=== PATIENT | male | born 1935 | race Caucasian/White ===

== ENCOUNTER 2016-06-28 15:41 | Inpatient (IN) | payer MEDICARE, OTHER ==
[~2016-06-28] VITALS: Ht 175.3 cm; Wt 108.1 kg
[~2016-06-28 15:41] MED LIST: ACET-171 PO; ATOR20TA PO; CLOP75TA28 PO; FELO10TA3 PO; FUR20 PO; HYDR-3940 PO; HYDR-4003 PO; LOSA1TAB70 PO; LOV80 SUBQ; NITR0.4T SL; PANT40TA2 PO; WARF5TAB7 PO
[2016-06-28 15:55] VITALS: BP 189/66; PULSE 56; RESP 22; O2SAT 98
[2016-06-28 16:51] LABS: BASOPHILS % (AUTO) 0.1 % (0-3); EOSINOPHILS % (AUTO) 1.8 % (0-5); MONOCYTES % (AUTO) 11.4 % (4-12); Mean Corpuscular Hemoglobin 28.3 pg (27.0-35.0); Mean Corpuscular Volume 90.6 fL (81-100); NEUTROPHILS % (AUTO) 75.8 % (40-74); Platelet Count 254 bil/L (150-400)
[2016-06-28 17:05] LABS: INR 2.72 ratio
[2016-06-28 17:13] LABS: TROPONIN T 0.028 ug/L (0.0-0.011)
[2016-06-28 17:24] LABS: Magnesium 1.9 mg/dL (1.6-2.6)
--- NOTE | 2016-06-28 17:35 | DRSVH ---
PROCEDURE: X-RAY CHEST ONE VIEW, PORTABLE ([id number]) INDICATIONS: weakness TECHNIQUE: One view of the chest was acquired. COMPARISON: [facility], CR, XR CHEST 1VW (PORTABLE), 01/07/2016, 13:40. FINDINGS: Surgical changes and devices: None. Lungs and pleura: No pleural effusions or pneumothorax. Lungs are clear. Mediastinum: Mediastinal contours appear normal. Heart size is normal. Bones and chest wall: No suspicious bony lesions. Overlying soft tissues appear unremarkable. IMPRESSION: No acute process. Dictated by: Eliana Harris M.D. on 06/28/2016 at 17:08 Approved by: Eliana Harris M.D. on 06/28/2016 at 17:09
--- NOTE | 2016-06-28 18:57 | ED.REPORT ---
HPI-General Illness Date of Service Jun 28, 2016 ED Provider: Fredy Mc MD Morgan Martel is a 81 year old man with a PMH of CAD with stents to the RCA and LAD, Factor 5 Leiden, 2 PEs in 2011 and 2012 on Warfarin, TAVR in Dec, and LBBB who presents with a 3 month history of Cold intolerance and fatigue. He states that his entire life he has been "Warm Blooded" and generally able to dress more lightly than those around him, now however over the course of the day he gets increasingly chilled and has to wear several layers even inside a heated home. He denies fevers or shaking chills. He does have a problem with chronic LE edema which has been worsening lately, and he has been feeling more SOB than usual for the past couple weeks. He is further concerned about a change in color to his L LE which has been gradually coming on over the past couple months. He is being followed by Dr. Mcallister from cardiology and his PCP Dr. Mott. In short this is a gentleman with multiple chronic complaints that seem to have come to a head such that he currently feels miserable and is seeking further evaluation. Nursing Notes Stated Complaint: BODY CHILLS, NAUSEA Chief Complaint: General Complaint Nursing Notes Reviewed: Yes Allergies: Coded Allergies: No Known Allergies (Unverified , 06/28/16) Scheduled Atorvastatin (Lipitor) 10 Mg Tab 10 MG PO HS Clopidogrel (Clopidogrel) 75 Mg Tablet 75 MG PO DAILY Hydralazine (Hydralazine) 100 Mg Tablet 100 MG PO TID Hydrochlorothiazide (Hydrochlorothiazide) 25 Mg Tablet 25 MG PO DAILY Losartan Potassium (Losartan Potassium) 100 Mg Tablet 100 MG PO HS Metoprolol Succinate ER (Metoprolol Succinate ER) 25 Mg Tab.er.24h 25 MG PO QAM Pantoprazole DR (Pantoprazole DR) 40 Mg Tablet.dr 40 MG PO QAM Warfarin Sodium (Warfarin Sodium) 5 Mg Tablet 7.5 MG PO DAILY except Warfarin Sodium (Warfarin Sodium) 5 Mg Tablet 5 MG PO Q FRIDAY Scheduled PRN Acetaminophen (Acetaminophen) 500 Mg Tablet 1,000 MG PO Q6H PRN PRN For Pain Budesonide/Formoterol 160-4.5 mcg Inh (Symbicort 160-4.5 mcg Inh) 120 Puff Inhaler 1 PUFF INHALATION BID PRN PRN For Shortness of Breath Nitroglycerin SL (Nitrostat) 0.4 Mg Tab.subl 0.4 MG SL PRN PRN PRN For Chest Pain 1 tab under your tongue for chest pain. May repeat up to 3 tabs if pain continues. Call 911 if pain does not resolve. General Time Seen by MD: 18:15 Chief Complaint Other (Cold intolerance) Hx Obtained From: Patient Sudden in Onset?: No Onset Occurred: More than a week ago... (3 months) Symptom Duration: Waxes and wanes Recent Healthcare: Recent doctor visit Similar Sx Previous: Yes Past Medical History Past Medical History Notes: Document Image Technician Dr. Mcallister D/Jax'richi Friday01/05/16 from [facility] following TAVR 01/02 ( cardiology attending and surgeon Dr. Orellana, Dr. 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 Chan Status post valve replacement (TAVR) at [place] (bioprosthetic) complicated by pseudoaneurysm repair 01/03/2016 Smoking History Former Smoker Ambulatory Status Independent Review of Systems Full Review of Systems Constitutional: Reports: Chills, Fatigue Respiratory: Reports: Shortness of breath Cardiovascular: Reports: Edema Skin: Reports Rash, Reports Swelling Complete sys rev & neg: except as marked. Physical Exam Gen: A/O x3 pleasant cooperative elderly male bundled in numerous blankets despite skin that is very warm to the touch Neck: Supple, non tender, no thyromegaly HEENT: PERRL, EOMI, no scleral icterus, moderate conjunctival pallor CV: RRR, audible holosystolic murmur best heard a right sternal border consistent with TAVR, no rubs or gallops Resp: Lungs CTA BL, no wheezing rales or rhonchi Abdomen: soft non tender, no organomegaly Extr: Moderate BL LE pitting edema, dusky red color change to L LE with associated palpable warms and no purulent discharge Neuro: CN 2-12 grossly intact, no focal neurologic deficit. Vital Signs Vital Signs Date Time Temp Pulse Resp B/P Pulse Ox O2 Delivery O2 Flow Rate FiO2 06/28/16 20:15 63 16 184/58 96 Room Air 06/28/16 15:55 37.1 56 22 189/66 98 Room Air Initial VS: Reviewed, Vital signs abnormal (Hypertensive) Interpretation & Diagnostics Lab Results Interpretation Result Diagram: 06/28/16 2149 06/28/16 1625 Test 06/28/16 16:09 06/28/16 16:25 06/28/16 18:36 Lactic Acid Level 1.1mmol/L (0.4-2.0) Procalcitonin 0.04ng/mL (0.00-0.08) Prothrombin Time 29.7sec (8.1-12.5) Prothromb Time International Ratio 2.72ratio Sodium Level 140mEq/L (134-144) Potassium Level 4.1mEq/L (3.5-5.2) Chloride Level 102mEq/L (97-108) Carbon Dioxide Level 21mmol/L (18-29) Blood Urea Nitrogen 30mg/dL (8-27) Creatinine 1.29mg/dL (0.76-1.27) Estimat Glomerular Filtration Rate 57mL/min (>59) Glucose Level 155mg/dL (60-99) Calcium Level 9.4mg/dL (8.5-10.1) Magnesium Level 1.9mg/dL (1.6-2.6) Total Bilirubin 0.5mg/dL (0.0-1.2) Aspartate Amino Transf (AST/SGOT) 19U/L (0-50) Alanine Aminotransferase (ALT/SGPT) 16U/L (0-44) Alkaline Phosphatase 66U/L (25-160) Pro-B-Type Natriuretic Peptide 640.1pg/mL (0-486) Total Protein 7.4g/dL (6.4-8.4) Albumin 3.9g/dL (3.4-5.0) Hold Kaur Top Tube Received (Received) Troponin T 0.029ug/L (0.0-0.011) Thyroid Stimulating Hormone (TSH) 1.580uIU/mL (0.450-4.500) Lab Results Interpretation: Mildy anemic with H/H close to baseline, BNP mildly elevated with negative result in May per outpatient notes, Cr mildly elevated above baseline, BUN/Cr ration >20:1, TSH normal, Trop elevated but below previously established values and unchanged on repeat measure X-Ray Chest Interpretation Interpretation / Wet Read by: Interpret - Radiologist NL X-Ray Chest Findings: No infiltrate, Normal lung markings, Normal heart size, Normal mediastinum, Normal great vessels, No fracture, Soft tissues normal , No acute disease, No sail sign, NL cardiothymic shadow Re-Eval/Medical Decision Med Decision/Clinical Course Mr. Mora is a gentleman with multiple chronic medical issues and a somewhat uncertain baseline status in terms of expected Troponin values. Given that he feels acutely worse today and is a diabetic with an ECG that cannot be interpreted due to LBBB we believe it would be prudent to admit this gentleman for further observation and trending of his Troponin. In addition he appears to be developing early L LE cellulitis and would benefit from antibiotics during his cardiac observation period. Patient did not appear acutely toxic, per discussion with admitting internal med team we deferred antibiotic selection to Internal Medicine. Counseled Regarding: Diagnosis, Lab results, Need for admission Discharge & Departure Shift Change Sign-Out Patient Care Transferred: Yes Discussed Complaint(s): Yes Laboratory Evaluation: Lab evaluation discussed Imaging Studies: Imaging discussed Response to Therapy: Improved Primary Impression: Chest pain in adult Additional Impression: Cellulitis and abscess of leg, except foot Disposition: ADMITTED TO HOSPITAL Discharge Condition All VS Reviewed: Yes Condition: Stable Referrals: Edison Mott MD (PCP) Attending Statement Seen with Dr Mota on 06/27. Agree with above. copies to: Edison Mott MD, David E DO Jun 28, 2016 18:57 Fredy Mc MD Jun 29, 2016 01:53 Primary Impression: Chest pain in adult Additional Impression: Cellulitis and abscess of leg, except foot Disposition: ADMITTED TO HOSPITAL Discharge Condition All VS Reviewed: Yes Condition: Stable Referrals: Edison Mott MD (PCP) copies to: Edison Mott MD, David E DO Jun 28, 2016 18:57
[2016-06-28 19:15] LABS: TROPONIN T 0.029 ug/L (0.0-0.011)
[2016-06-28] MEDS ORDERED: Trimethoprim-Sulfa 160 mg-800 mg Tablet PO ONE (20:05)
[2016-06-28 20:15] VITALS: BP 184/58; PULSE 63; RESP 16; O2SAT 96
[2016-06-28] MEDS ORDERED: Ondansetron 2 mg/mL 2 mL Inj IVPUSH PRN (20:35)
[2016-06-28] MEDS ORDERED: HYDROcodone-APAP 5-325 mg Tablet PO PRN (20:35)
[2016-06-28] MEDS ORDERED: Polyethylene Glycol (PEG) 17 Gm Powder PO PRN (20:35)
[2016-06-28] MEDS ORDERED: Alum-Mag Hydrox-Simeth 30 mL Suspension PO PRN (20:35)
[2016-06-28] MEDS ORDERED: WARF5TAB7 PO (21:11)
[2016-06-28] MEDS ORDERED: ATRV10T PO (21:11)
[2016-06-28] MEDS ORDERED: METO25TA99 PO (21:11)
[2016-06-28] MEDS ORDERED: HYDR100T27 PO (21:11)
[2016-06-28] MEDS ORDERED: LOSA100T29 PO (21:11)
[2016-06-28] MEDS ORDERED: SYMINH INHALATION (21:12)
[2016-06-28] MEDS: Vancomycin Dose per Pharmacist XX SCH (21:20)
--- NOTE | 2016-06-28 21:33 | PCM.HPMED ---
Subjective Date of Service Jun 28, 2016 Primary Provider: Admitting Physician: Ambrosio Lane MD Primary Care Physician: Edison Mott MD Attending Physician: Ambrosio Lane MD Admit Status: From the Emergency Department Chief Complaint: Chills Nausea History of Present Illness: Patient is a 81 y.o. M with a past medical history of CAD with stents to the RCA and LAD antiplatelet therapy with Clopidogrel, Factor V Leiden, 2 PEs and DVT in 2011 and 2012 anticoagulated on Warfarin, TAVR in Dec, and LBBB, chronic lower leg edema on lasix. He presented tot ED with complaint of nausea and chills. Patient stated he has had a 3 month history of Cold intolerance and fatigue. He stated that this began a couple of months ago, and he previously as had no problems with feeling cold. Patient stated that he has had to wear increasingly more layers of clothing and turn up the heat in his home. Associated with worsening nausea, increase in blood pressure, worsening shortness of breath over the past two weeks. Additionally patient and his daughter voiced concerning over the changing of color of hi left lower leg that has beem, gradually becoming red and appears to have been advancing over the past months.Patient denies dysuria, constipation, diarrhea, blood in stool, vomiting, coughing up blood, back pain, chest pain, chest pressure, abdominal pain, syncope, vertigo, change in vision, headache. Review of Systems: A comprehensive review of systems was conducted with the patient and found to be negative except as above in the History of Present Illness. Allergies Coded Allergies: No Known Allergies (Unverified , 06/28/16) Home Medications Atorvastatin (Lipitor) 20 Mg Tablet 10 MG PO DAILY Clopidogrel (Clopidogrel) 75 Mg Tablet 75 MG PO DAILY Enoxaparin (Lovenox) 80 Mg/0.8 Ml Syringe 80 MG SUBQ Q12 starting 01/05/16 x 3 days Felodipine ER (Felodipine ER) 10 Mg Tab.er.24h 10 MG PO DAILY Furosemide (Furosemide) 20 Mg Tab 20 MG PO BID Hydralazine (Hydralazine) 50 Mg Tablet 50 MG PO TID Losartan/HCTZ 100-25 mg (Losartan/HCTZ 100-25 mg) 1 Each Tablet 1 TABLET PO DAILY Pantoprazole DR (Protonix) 40 Mg Tablet 40 MG PO DAILY Warfarin Sodium (Warfarin Sodium) 5 Mg Tablet 7.5 MG PO DAILY Acetaminophen (Acetaminophen) 500 Mg Tablet 1,000 MG PO Q6H PRN PRN For Pain Hydrocodone-Acetaminophen 5-325 mg (Hydrocodone-Acetaminophen 5-325 mg) 1 Each Tablet 1 TABLET PO Q4H PRN PRN For Pain Nitroglycerin SL (Nitrostat) 0.4 Mg Tab.subl 0.4 MG SL PRN PRN PRN For Chest Pain 1 tab under your tongue for chest pain. May repeat up to 3 tabs if pain continues. Call 911 if pain does not resolve. PMH History of pulmonary embolus (recurrent in 2011, 2012, on chronic anticoagulation with warfarin) Factor V Leiden Aortic stenosis Hypertension Hyperlipidemia Coronary disease with LAD and RCA obstructive disease Type II diabetes COPD with moderate obstructive disease on pulmonary function tests Surgical History Last pre-op cath w/stent to RCA 12/07/[address] Chan Status post valve replacement (TAVR) at [place] (bioprosthetic) complicated by pseudoaneurysm repair 01/03/2016 Family History Factor V leiden Social History Hx Alcohol Use: No Hx Substance Use: No Smoking Status: Former Smoker Exam Vital Signs Vital Sign - Last Date Time Temp Pulse Resp B/P Pulse Ox O2 Delivery O2 Flow Rate FiO2 06/28/16 20:15 63 16 184/58 96 Room Air 06/28/16 15:55 37.1 Exam General: No acute distress, well-developed, well-nourished, appropriately interactive, covered in multiple layers of blankets, skin is warm to touch HEENT: Normocephalic, atraumatic. External ears without defect. Pupils equal, round, and reactive to light and accommodation. Anicteric sclerae, dry oral mucosa, conjunctiva pallor present, Neck: Supple with full range of motion. No jugular venous distension. No bruits. No lymphadenopathy or thyromegaly. Cardiovascular: Regular rate and rhythm, grade II/ holosystolic murmur at RSB , no rubs, or gallops appreciated Pulmonary: Clear to auscultation bilaterally with no crackles, wheezes, or rhonchi. Normal respiratory effort with no use of accessory muscles. Abdomen: Bowel tones present. Soft, nontender, nondistended. No hepatosplenomegaly or masses appreciated. Extremities: Moderate bilateral pitting edema up to mid tibia with hemosidrin staining consistent with venous staus changes. LLE however has noticeable erythema from ankle to mid tibia with demarcated boarder. No clubbing, cyanosis , or lymphadenopathy appreciated. Skin: Normal temperature, poor turgor in neck, and texture; no rash, ulcers, or subcutaneous nodules appreciated. decreased cap refill Neurological: Cranial nerves grossly intact. Normal muscle strength, tone, and bulk. Reflexes, coordination, and sensory function within normal limits. No known gait impairment. Psychiatric: Normal mood and affect. Alert and oriented to person, place, and time. Lab and Diagnostics Result Diagram: 06/28/16 1625 06/28/16 1625 X-Rays, CTs and MRIs CHEST X-Ray IMPRESSION: No acute process. Dictated by: Eliana Harris M.D. on 06/28/2016 at 17:08 Approved by: Eliana Harris M.D. on 06/28/2016 at 17:09 12-lead ECG RRR normal axis significant LBBB difficult to evaluate ST changes Assessment & Plan Patient is a 81 y.o. M with a past medical history of CAD with stents to the RCA and LAD antiplatelet therapy with Clopidogrel, Factor V Leiden, 2 PEs and DVT in 2011 and 2012 anticoagulated on Warfarin, TAVR in Dec, and LBBB, chronic lower leg edema on lasix. Patient is admitted for treatment of anemia, potential Left lower leg cellulitis, CP rule out, endocarditis rule out. 1. Left lower leg cellulitis, acute - Evolving erythem over left lower leg with clearly demarcated boundary, high suspicion for cellulitis, consider erysipelas, vs chronic venous stasis changes vs LLE DVT - CBC does not show elevation in WCT - Blood cultures ordered - Lactic acid pending - procalcitonin pending - Start antibiotic therapy Vancomycin renal dosing per pharmacy. - also added Ceftriaxone to cover for Strep - Wound check orders placed - US Doppler LLE ordered for AM - Continue cautious IVF management, encourage PO intake - Repeat CBC and BMP in AM 2. Elevated troponin, acute. Present on admission - CP resolved on admission - initial troponin elevated, not above previous baseline .029, r/o cardiac causes vs chronic elevation in troponin due to CKD - Trend troponin Q6 - Morphine Q15 PRN minutes for severe chest pain - Nitroglycerin 0.4 SL PRN chest pain - Continue home blood pressure medications 3. Anemia, acute on chronic - On admision Hgb 3.47 not significantly below baseline, however patient is experiencing symptoms of anemia - TSH normal, less likely symptoms related to hypothyroidism - Iron studies ordered, pening - Trend H/H Q8 4. Possible Subacute Bacterial Endocarditis, - Schaeffer Criteria, one minor non sauk-suiattle valve, - Blood cultures ordered - ESR ordered - RA ordered - streptolysin enzyme ordered - repeat CBC as above - Trans thoracic echo ordered Chronic conditions Factor V Leiden - Continue warfarrin Aortic stenosis s/p TAPVR - r/o infective endocarditis , continue to monitor Hypertension - Continue home medication Hyperlipidemia - hold home medication - lipid panel ordered Coronary disease with LAD and RCA obstructive disease - sp stent continue anti platelet therapy Type II diabetes - medium correctional scale ordered COPD with moderate obstructive disease on pulmonary function tests - Duoneb Q6 PRN Patient is admitted under observation status with expected length of stay less than 2 midnights due to severity of presenting symptoms, risk of adverse event Pain Evaluation: Adequate Pain Control VTE Prophylaxis: Theraputic Anticoag with Warfarin Resuscitation Status: CPR: Attempt Resuscitation Attending Statement The patient was seen and examined together with Dr. Borrego on 06/28 and I agree with the history, exam and plan as outlined in the note above. JOE BORREGO DO Jun 28, 2016 21:[address] MD Jun 29, 2016 03:26
[2016-06-28] MEDS ORDERED: Vancomycin Inj 2,250 MG in 0.9% Sodium Chloride 500 ML IV ONE (21:45)
[2016-06-28 21:57] LABS: BASOPHILS % (AUTO) 0.2 % (0-3); EOSINOPHILS % (AUTO) 0.8 % (0-5); MONOCYTES % (AUTO) 10.4 % (4-12); Mean Corpuscular Hemoglobin 28.6 pg (27.0-35.0); Mean Corpuscular Volume 90.2 fL (81-100); NEUTROPHILS % (AUTO) 76.8 % (40-74); Platelet Count 228 bil/L (150-400)
[2016-06-28 21:58] VITALS: BP 165/55; PULSE 67; RESP 16; O2SAT 95
[2016-06-28] MEDS ORDERED: Glucose 40% Oral Gel 15 Gm Tube PO PRN (22:10)
--- NOTE | 2016-06-28 22:13 | PCM.CONPHA ---
Assessment/Plan Assessment/Plan ANTICOAGULATION MANAGEMENT BY PHARMACY -INDICATION: HX OF DVT AND PE -HOME DOSE: 7.5 MG MON,TUE,WED,FRI,SAT,SUN 5 MG DAVID -CONCURRENT ANTICOAGULATION: NONE -CRCL: 62 ML/MIN -COAG TRENDS: Date INR 2.72 -[id number] SCORE: 4 PLAN: PER PATIENT HAS NOT TAKEN HOME DOSE TONIGHT SO WILL GIVE A OT DOSE OF 7.5 MG. PHARMACY TO CONTINUE TO DOSE BASED ON DAILY INRS Pharmacy appreciates consult and will continue to monitor. THANKS! Nataliia Marina PharmD Jun 28, 2016 22:13
[2016-06-28] MEDS ORDERED: Warfarin 5 MG, Warfarin 2.5 MG PO ONE ×2 (22:14)
[2016-06-28] MEDS ORDERED: HYDR25TA4 PO (22:17)
[2016-06-28] MEDS ORDERED: PANT40TA3 PO (22:17)
[2016-06-28 22:20] VITALS: BP 162/49; PULSE 67; RESP 20; O2SAT 95
[2016-06-28 22:29] LABS: Unsaturated Iron Binding 214.2 ug/dL
[2016-06-28 22:36] LABS: APPEARANCE,URINE CLEAR (CLEAR,HAZY); COLOR,URINE YELLOW (YELLOW); OCCULT BLOOD,URINE NEGATIVE (NEGATIVE); UROBILINOGEN,URINE NORMAL (NORMAL)
[2016-06-28 22:46] VITALS: BP 174/65; PULSE 65; RESP 16; O2SAT 95
[2016-06-28] MEDS: 0.9% Sodium Chloride 1,000 ML IV SCH (23:42)
[2016-06-29] VITALS (10 sets, daily range): BP systolic 145–206; BP diastolic 64–84; PULSE 52–70; RESP 16–20; O2SAT 94–97
[2016-06-29] MEDS ORDERED: Heparin 5,000 Unit/mL Inj SUBQ SCH (00:30)
[2016-06-29 01:40] LABS: APPEARANCE,URINE CLEAR (CLEAR,HAZY); COLOR,URINE YELLOW (YELLOW); OCCULT BLOOD,URINE NEGATIVE (NEGATIVE); UROBILINOGEN,URINE NORMAL (NORMAL)
--- NOTE | 2016-06-29 01:47 | PCM.CONPHA ---
Subjective Date of Service: Jun 29, 2016 Requesting Provider: JOE BORREGO DO Chills Nausea Reason for Pharmacy Consult: Vancomycin Dosing Objective Vital Signs Date Time Temp Pulse Resp B/P Pulse Ox O2 Delivery O2 Flow Rate FiO2 06/29/16 01:00 37.4 70 16 162/66 95 Room Air 06/28/16 22:46 37.3 65 16 174/65 95 Room Air 06/28/16 22:20 67 20 162/49 95 Room Air 06/28/16 21:58 67 16 165/55 95 Room Air 06/28/16 20:15 63 16 184/58 96 Room Air 06/28/16 15:55 37.1 56 22 189/66 98 Room Air Weight (Kilograms): 111.900 Height (Feet): 5 Height (Inches): 9.00 Test 06/28/16 16:09 06/28/16 16:25 06/28/16 18:36 06/28/16 21:49 Lactic Acid Level 1.1mmol/L (0.4-2.0) Procalcitonin 0.04ng/mL (0.00-0.08) Prothrombin Time 29.7sec (8.1-12.5) Prothromb Time International Ratio 2.72ratio Sodium Level 140mEq/L (134-144) Potassium Level 4.1mEq/L (3.5-5.2) Chloride Level 102mEq/L (97-108) Carbon Dioxide Level 21mmol/L (18-29) Blood Urea Nitrogen 30mg/dL (8-27) Creatinine 1.29mg/dL (0.76-1.27) Estimat Glomerular Filtration Rate 57mL/min (>59) Glucose Level 155mg/dL (60-99) Calcium Level 9.4mg/dL (8.5-10.1) Magnesium Level 1.9mg/dL (1.6-2.6) Total Bilirubin 0.5mg/dL (0.0-1.2) Aspartate Amino Transf (AST/SGOT) 19U/L (0-50) Alanine Aminotransferase (ALT/SGPT) 16U/L (0-44) Alkaline Phosphatase 66U/L (25-160) Pro-B-Type Natriuretic Peptide 640.1pg/mL (0-486) Total Protein 7.4g/dL (6.4-8.4) Albumin 3.9g/dL (3.4-5.0) Hold Kaur Top Tube Received (Received) Troponin T 0.029ug/L (0.0-0.011) Thyroid Stimulating Hormone (TSH) 1.580uIU/mL (0.450-4.500) White Blood Count 6.1th/mm3 (3.8-10.1) Red Blood Count 3.46mil/mm3 (4.40-5.80) Hemoglobin 9.9g/dL (13.8-17.2) Hematocrit 31.2% (41.0-50.0) Mean Corpuscular Volume 90.2fL (81-100) Mean Corpuscular Hemoglobin 28.6pg (27.0-35.0) Mean Corpuscular Hemoglobin Concent 31.7% (32.0-37.0) Red Cell Distribution Width 15.8% (12.3-15.4) Platelet Count 228bil/L (150-400) Neutrophils (%) (Auto) 76.8% (40-74) Lymphocytes (%) (Auto) 11.5% (14-46) Monocytes (%) (Auto) 10.4% (4-12) Eosinophils (%) (Auto) 0.8% (0-5) Basophils (%) (Auto) 0.2% (0-3) Reticulocyte Count,Calculated 1.7% (0.6-2.6) Iron Level 47ug/dL (35-150) Total Iron Binding Capacity 261ug/dL (250-450) Percent Iron Saturation 18%sat (15-50) Unsaturated Iron Binding 214.2ug/dL Ferritin 96ng/mL (30-400) Test 06/29/16 01:01 Urine Color Yellow (YELLOW) Urine Appearance Clear (CLEAR,HAZY) Urine pH 6.0 (5.0-8.0) Urine Specific [place] 1.020 (1.003-1.035) Urine Protein 100mg/dL (NEG,TRACE) Urine Glucose (UA) Negativemg/dL (NEGATIVE) Urine Ketones Negativemg/dL (NEGATIVE) Urine Occult Blood Negative (NEGATIVE) Urine Nitrite Negative (NEGATIVE) Urine Bilirubin Negative (NEGATIVE) Urine Urobilinogen Normalmg/dL (NORMAL) Urine Leukocyte Esterase Negative (NEGATIVE) Urine RBC 0-2/hpf (0-2) Urine WBC 0-5/hpf (0-5) Urine Epithelial Cells Occasional/hpf (NONE-MOD) Urine Crystals Amorphous urates (NONE Urine Bacteria Few/hpf (NONE-FEW) Urine Hyaline Casts None/lpf (NONE) Urine Granular Casts None seen (NONE SEEN) Urine Waxy Casts None seen (NONE SEEN) Urine Red Blood Cell Casts None seen (NONE SEEN) Urine White Blood Cell Casts None seen (NONE SEEN) Urine Mucus None seen (None Seen) Urine Trichomonas None seen (NONE SEEN) Urine Yeast None (NONE SEEN) Urinalysis Comment None Urine Culture Reflexed Not indicated Assessment/Plan Assessment/Plan A: * Vancomycin dosing by pharmacy for 81 y/o man with cellulitis * He received a vancomycin loading dose of 2250 mg IV once * Estimated CrCl is 57 mL/min (Cockcroft & Gault using AdjBW) * Estimated vancomycin half-life is 13 hours and estimated Vd is 78 liters P: * Starting vancomycin 1000 mg every 12 hours * Target vancomycin trough range of 10 - 15 mcg/mL * Drawing a trough level prior to the fourth dose Thank you. Pharmacy will continue to follow this patient. Bianca See, PharmD Bianca See Jun 29, 2016 01:47
[2016-06-29] MEDS: cefTRIAXone Inj 2,000 MG in Dextrose 5% Minibag Plus 50 ML IV SCH (04:05)
[2016-06-29 05:40] LABS: BASOPHILS % (AUTO) 0.3 % (0-3); EOSINOPHILS % (AUTO) 0.8 % (0-5); MONOCYTES % (AUTO) 9.9 % (4-12); Mean Corpuscular Hemoglobin 28.4 pg (27.0-35.0); Mean Corpuscular Volume 90.4 fL (81-100); NEUTROPHILS % (AUTO) 73.4 % (40-74); Platelet Count 237 bil/L (150-400)
[2016-06-29 05:58] LABS: INR 2.25 ratio
--- NOTE | 2016-06-29 06:16 | NUR ---
Admit Admitted to 1017 from ED via stretcher. Able to transfer self into bed. Generalized weakness and slightly unsteady gait noted. IV SL initially and NS @100ml/hr initiated per orders. RA w/o c/o SOB. Tele SR w/o c/o CP. Tolerating PO intake without any difficulties. Voiding per urinal. LLE cellulitis noted with slightly red coloration to skin, scratches and warmer to touch when compared to RLE. No drainage noted or pain reported. Personal belongings at bedside per patient request. Oriented to call light use with return demonstration and using fro needs.
[2016-06-29] MEDS: Vancomycin Dose per Pharmacist XX SCH (08:30)
[2016-06-29] MEDS: Insulin LISPRO 300 Unit/3 mL Inj SUBQ SCH ×3 (09:28→17:30)
[2016-06-29] MEDS: MeTOProlol XL 25 mg ER24 Tablet PO SCH (09:29)
--- NOTE | 2016-06-29 11:30 | NUR ---
XOCHILT explained and signed. Copy of XOCHILT and Medicare self administered medication information given to pt.
[2016-06-29] MEDS: 0.9% Sodium Chloride 1,000 ML IV SCH ×2 (13:02→16:33)
--- NOTE | 2016-06-29 13:14 | DRSVH ---
PROCEDURE: US VENOUS LEG DUPLEX BILATERAL INDICATIONS: lower extremity swelling TECHNIQUE: Real-time imaging, as well as color and pulse Doppler interrogation, were performed of the deep veins of both legs from the inguinal ligament to the popliteal fossa. COMPARISON: None. FINDINGS: The deep veins are normally compressible, and free of intraluminal thrombus. Color and pu lse Doppler demonstrate normal phasic intravascular flow. There is normal augmentation response to d istal compression maneuver. IMPRESSION: 1. No evidence of deep venous thrombosis in the right or left lower extremity. Dictated by: Milan Pierson M.D. on 06/29/2016 at 13:12 Approved by: Milan Pierson M.D. on 06/29/2016 at 13:12
[2016-06-29] MEDS: Vancomycin Inj 1,000 MG in IV Premix 1 EACH IV SCH (14:28)
[2016-06-29] MEDS ORDERED: Warfarin 5 MG, Warfarin 2.5 MG PO ONE ×2 (17:00)
[2016-06-29] MEDS: Fluticasone 0.05% 15 Spray/2 Gm 16 Gm Nasal Spray NASAL PRN ×2 (17:29→23:32)
--- NOTE | 2016-06-29 18:09 | DRSVH ---
[facility] [address] [place] [address] Echocardiogram Report Name: LANDON RICH Study Date: 06/29/2016 Height: 69 in Hospital Exam Location: [facility] Weight: 250 lb Gender: Male BSA: 2.3 m2 : 1935 Age: 81 yrs BP: 162/65 m mHg Reason For Study: Chest pain Ordering Physician: HOSPITALIST [facility] Performed By: Yeny Angeles Referring Physician: Dr. Edison Mott Interpretation Summary Normal sinus rhythm. Wide QRS complexes. Normal LV size, wall thickness, wall motion and LV systolic function. EF is 60-65%. Stage II disatolic dysfunction. Severe LA enlargement; borderline RV enlargement. Aortic valve is replaced by history with a stented bioprosthesis; it is functioning normally based on color flow Doppler. Leaflets are not well seen. Compared to prior study 01/09/2016 no changes have occurred. Procedure: A two-dimensional transthoracic echocardiogram with color flow and Doppler was performed. The study quality was technically adequate. Comparison is made with the echocardiogram of 01-09-16. The patient was in normal sinus rhythm during the exam. Left Ventricle: The left ventricle is normal in size, wall thickness, and systolic function without any focal wall motion abnormalities. The ejection fraction is estimated to be 60-65%. The E/E' ratio is abnormal. Right Ventricle: Borderline right ventricular enlargement. The right ventricular systolic function is normal. Atria: The left atrium is severely dilated. Right atrial size is normal. The interatrial septum is intact with no evidence for an atrial septal defect. Mitral Valve: The mitral valve leaflets appear mildly thickened, but open well. There is mild to moderate mitral regurgitation. Aortic Valve: There is a bioprosthetic aortic valve. The prosthetic aortic valve is well-seated. No aortic regurgitation is present. Tricuspid Valve: The tricuspid valve is normal. There is trace tricuspid regurgitation. The right ventricular systolic pressure is estimated at 49 mmHg assuming a right atrial pressure of 8 mm Hg. Pulmonic Valve: The pulmonic valve is not well visualized. Great Vessels: The aortic root is normal size. The IVC is dilated (diameter is greater than 2.1 cm) yet it collapses greater than 50% with a sniff. This suggests a right atrial pressure of 8 mm Hg. Pericardium/ Pleura There is no pericardial effusion. There is no pleural effusion. MMode/2D Measurements & Calculations LVIDd: 5.9 cm LA dimension: 3.6 cm RA long axis LVOT diam: 2.2 cm LVIDs: 3.8 cm Ao Arch Diam (Prox FS: 36.0 % LA A2 area: 31.6 cm RA area Trans): 3.4 cm IVSd: 0.88 cm LA A4 area: 32.4 cm LVPWd: 0.94 cm LA length (vol) : 19.6 cm RA vol LA vol: 128.2 ml : 61.9 ml LA vol index RA : 27.2 mm/ RVDd major IVC diam: 2.2 cm : 5.7 cm LV mckenna. diameter/BSA LV sys. diameter/BSA RVD1 (basal) RVD2 (mid): 3.8 cm (cm/m^2): 2.6 (cm/m^2): 1.7 Doppler Measurements & Calculations Ao V2 max MV E max luis MV E/A: 1.1 TR max luis : 284.5 cm/sec : 147.4 cm/sec Med Peak E' Luis : 318.8 cm/sec Ao max PG MV A max luis TR max PG : 32.4 mmHg : 138.8 cm/sec E/E' med: 22.2 : 40.6 mmHg Ao mean PG MV P1/2t: 90.1 msec Lat Peak E' Luis : 19.1 mmHg MR ERO: 0.13 cm2 LVOT Max Luis E/E' lat: 13.9 : 97.0 cm/sec E/e' average: 18.1 CHANEL(I,D): 1.3 cm MV A dur: 0.14 sec sev ratio MV dec time MV P1/2t max luis Ao V2 mean LV V1 max PG : 0.30 sec : 208.0 cm/sec Ao V2 VTI: 66.9 cm LV V1 VTI MVA(P1/2t): 2.4 cm2 : 22.5 cm CHANEL(V,D): 1.3 cm2 MR flow rate CHANEL indexed to BSA : 56.0 cm3/sec (cm^2/m^2): 0.58 MR PISA radius Reading Physician:06:09 PM
--- NOTE | 2016-06-29 18:26 | NUR ---
Activity / Appetite Pt resting majority of day in bed. Family came to visit and pt more social, encouraged to ambulate Walked w/ [employer]ER via SBA down length of hallway and back. Steady gait Pt encouraged to increase nutrition. Doesn't feel hungry this shift. Ordered small bites for lunch and dinner, refused breakfast. Bed down and locked, call light w/in reach
--- NOTE | 2016-06-29 18:34 | NUR ---
Hypertension VSS being taken when I entered his room to clear IV pump. BP 170/67 Hospitalist notified HCTZ ordered, not yet available and IVF turned down to 60mls/hr per verbal order. Pt asymptomatic Call light w/in reach
--- NOTE | 2016-06-29 20:53 | PCM.PNMED ---
Subjective Date of Service Jun 29, 2016 Subjective Condition and is seen and examined. He states that his improved much better than yesterday. He states he gets sinusitis and was seen by his PCP within the last couple of weeks and was given antibiotics, which did improve his symptoms at the time. He states that he had a concern for pseudoaneurysm in his right femoral/groin area there was a plan at one time today. However on a follow-up ultrasound duplex venous has gotten smaller and it was felt to be a lymph node and he did not undergo that procedure as a result. He has no chest pain, no dyspnea. He states that after TAVER last December 2015 he actually has been feeling much better. He always has somewhat cold extremities in the past studies show that he had stenosis or atherosclerosis in the right lower extremity. No previous ankle brachial index studies performed. He states that he never discussed stent placement in his right leg with his doctor Dr. Ray. States that his eyes are always swollen and at his baseline. He endorses current sinus discomfort, denies chest pain, shortness of breath, exertional dyspnea. Exam Vital Signs Vital Sign - Last Date Time Temp Pulse Resp B/P Pulse Ox O2 Delivery O2 Flow Rate FiO2 06/29/16 18:15 36.8 52 20 170/67 97 Room Air Intake and Output 06/28/16 06/28/16 06/29/16 Cumulative From/Thru 15:00 23:00 07:00 06/28/16 15:55 - 06/29/16 06:44 Intake Total 300 ml 300 ml Output Total 425 ml 425 ml Balance -125 ml -125 ml Intake Oral 300 ml 300 ml IV Total 0 ml 0 ml Output Urine Total 425 ml 425 ml Exam Gen.: No acute distress, obese appearing HEENT: Swollen eyes, Skin: dark discoloration of skin, hemosiderin deposits in lower legs bilaterally left lower leg is warmer to touch mildly more erythematous than right Heart: 2+ systolic murmur Lungs: Clear to auscultation bilaterally, no crackles or wheezes Abdomen: Large nontender nondistended normal bowel sounds Neuro: No focal deficits Psych: No anxiety IVs and Medications IV Fluids 70 mL/h normal saline Medications Reviewed: Medications were reviewed in detail Lab and Diagnostics Result Diagram: 06/29/16 0500 06/29/16 0500 X-Rays, CTs and MRIs CHEST X-Ray IMPRESSION: No acute process. Dictated by: Eliana Harris M.D. on 06/28/2016 at 17:08 Approved by: Eliana Harris M.D. on 06/28/2016 at 17:09 12-lead ECG RRR normal axis significant LBBB difficult to evaluate ST changes Cardiac Echo Impressions Normal sinus rhythm. Wide QRS complexes. Normal LV size, wall thickness, wall motion and LV systolic function. EF is 60-65%. Stage II disatolic dysfunction. Severe LA enlargement; borderline RV enlargement. Aortic valve is replaced by history with a stented bioprosthesis; it is functioning normally based on color flow Doppler. Leaflets are not well seen. Compared to prior study 01/09/2016 no changes have occurred. Assessment & Plan Patient is a 81 y.o. M with a past medical history of CAD with stents to the RCA and LAD antiplatelet therapy with Clopidogrel, Factor V Leiden, 2 PEs and DVT in 2011 and 2012 anticoagulated on Warfarin, TAVR in Dec, and LBBB, chronic lower leg edema on lasix. Patient is admitted for treatment of anemia, potential Left lower leg cellulitis, CP rule out, endocarditis rule out. 1. Left lower leg cellulitis, acute - Evolving erythem over left lower leg with clearly demarcated boundary, high suspicion for cellulitis, consider erysipelas, vs chronic venous stasis changes vs LLE DVT - CBC does not show elevation in WCT - Blood cultures ordered - procalcitonin pending, lactic acid within normal - Start antibiotic therapy Vancomycin renal dosing per pharmacy. - also added Ceftriaxone to cover for Strep - Wound check orders placed - US Doppler LLE ordered for AM: Negative for DVT - Continue cautious IVF management, encourage PO intake - Repeat CBC and BMP in AM Leg pain and cold lower extremities: -- Concern for peripheral arterial versus peripheral vascular disease -- Previous scans showed concern for atherosclerosis and right lower extremity -- Cardiology is consulted and they feel that DEVAUGHN and possible options of leg stenting can be done as outpatient with Dr. Mcallister. We appreciate their recommendations 2. Elevated troponin, acute. Present on admission - CP resolved on admission - initial troponin elevated, not above previous baseline .029, r/o cardiac causes vs chronic elevation in troponin due to CKD - Trend troponin Q6: No concern for acute TX but trips and still slightly going up: Plan to repeat 2 more times - Morphine Q15 PRN minutes for severe chest pain - Nitroglycerin 0.4 SL PRN chest pain - Continue home blood pressure medications 3. Anemia, acute on chronic - On admision Hgb 3.47 not significantly below baseline, however patient is experiencing symptoms of anemia - TSH is ordered and pending - Iron studies ordered, pending 4. Possible Subacute Bacterial Endocarditis, - Schaeffer Criteria, one minor non cheesh-na valve, - Blood cultures ordered - streptolysin enzyme ordered - repeat CBC as above - Trans thoracic echo ordered: Showed no concern for vegetations are wall motion defects are without defects Chronic conditions Factor V Leiden - Continue warfarrin Aortic stenosis s/p TAPVR -Is low risk of infective endocarditis in the absence of septic scenario -- Plan to switch to by mouth antibiotics tomorrow for cellulitis. Will consider doxycycline for Ceftin Hypertension - Continue home medication Hyperlipidemia - hold home medication - lipid panel ordered Coronary disease with LAD and RCA obstructive disease - sp stent continue anti platelet therapy Type II diabetes - medium correctional scale ordered COPD with moderate obstructive disease on pulmonary function tests - Duoneb Q6 PRN Disposition disposition patient will likely be discharged home tomorrow VTE Prophylaxis: Theraputic Anticoag with Warfarin Resuscitation Status: CPR: Attempt Resuscitation Stefani Cartagena DO Jun 29, 2016 20:53
[2016-06-29 22:46] LABS: TROPONIN T 0.037 ug/L (0.0-0.011)
[2016-06-30] VITALS (10 sets, daily range): BP systolic 130–176; BP diastolic 55–74; PULSE 45–63; RESP 16–18; O2SAT 94–98
[2016-06-30] MEDS: Vancomycin Inj 1,000 MG in IV Premix 1 EACH IV SCH (01:03)
[2016-06-30 03:12] LABS: INR 2.92 ratio
[2016-06-30] MEDS: cefTRIAXone Inj 2,000 MG in Dextrose 5% Minibag Plus 50 ML IV SCH (03:37)
--- NOTE | 2016-06-30 05:56 | NUR ---
SOB @ HS sats stable mid . states it was to senior contracts administrator the room and wanted his door open. Hydrochorothiazide given last evening and patients UOP overnight was 1025ml. Prefers to sit up in chair when he sleeps. Breathing easier towards this morning. Care ongoing. Addendum: 06/30/16 at 0637 by NISHI BASHIR RN correction; UOP this shift 1950ml.
[2016-06-30 07:42] LABS: BASOPHILS % (AUTO) 0.5 % (0-3); EOSINOPHILS % (AUTO) 4.1 % (0-5); MONOCYTES % (AUTO) 17.5 % (4-12); Mean Corpuscular Hemoglobin 28.4 pg (27.0-35.0); NEUTROPHILS % (AUTO) 56.4 % (40-74); Platelet Count 219 bil/L (150-400)
[2016-06-30] MEDS: MeTOProlol XL 25 mg ER24 Tablet PO SCH (09:11)
[2016-06-30] MEDS: cloNIDine 0.1 mg Tablet PO SCH ×2 (09:11→21:33)
--- NOTE | 2016-06-30 11:11 | NUR ---
HTN 0800 MD at bedside and aware of continued pt HTN. Consulted with cardio. Spironolactone and hydralazine to be held/dc'd and MD to start clonidine. MD to dc IV fluids. MD aware of troponins, not concerned at this time. Will monitor bp and troponin trends for possible DC. Per MD, pt considered stable if BP can be lowered to less than 150/90 and troponin remains below 0.040. Pt educated on clonidine. Addendum: 06/30/16 at 1414 by SHASHI CARDOSO RN MD aware of most recent troponin. MD notified of repeat BP's, most recent being 130/57. Also notified that pt is SB at 45. Denies any symptoms or pain. MD to review. Respiratory PCR pending. Pt stable up in chair. MD to determine next steps.
[2016-06-30] MEDS ORDERED: Vancomycin Serum Trough XX ONE (12:00)
--- NOTE | 2016-06-30 13:54 | CONS ---
[address] [address] CONSULTATION REPORT PATIENT: LANDON RICH : 1935 MR#: [id number] ADMIT: 06/28/2016 JOB ID: [id number] DATE OF SERVICE: 06/29/2016 CHIEF COMPLAINT: Feeling cold. HISTORY OF PRESENT ILLNESS: The patient is a delightful, 81-year-old man with coronary artery disease, status post percutaneous intervention to right coronary artery; he also has a history of severe aortic stenosis, status post transcatheter aortic valve replacement in December 2015, at [place]. He comes in complaining of worsening chills. He says last night, when he arrived in the emergency department, "I had about eight blankets on me." So far, he was diagnosed with right lower extremity cellulitis and treated with antibiotic therapy. He says he already feels much better and is quite pleased with his progress. Cardiology is consulted to assist with management of his extreme cold and in particular to comment on the possibility of endocarditis of recently deployed stented bioprosthesis in the aortic position. PAST MEDICAL HISTORY: 1. Coronary artery disease. Status post a drug-eluting stent deployed to the right coronary artery and ostial posterolateral branch in March 2016. He has diffuse LAD disease, not amenable to stenting or bypass operation. 2. Hypertension. 3. Hyperlipidemia. 4. Recurring PE in 2011 and 2012, on chronic anticoagulation. 5. Severe aortic stenosis, status post transcatheter aortic valve replacement with a core valve January 03, 2016. 6. Paroxysmal atrial fibrillation, diagnosed with event monitor, January 2015. 7. Peripheral arterial disease with below the knee stenosis noted on personal review of vascular ultrasound. 8. Emphysema. 9. Left bundle branch block. 10. Type 2 diabetes. 11. Diverticulosis. 12. Colon polyps. 13. Cataract surgery. 14. Obesity. FAMILY HISTORY: Reviewed and noncontributory. SOCIAL HISTORY: He is a former smoker. He has a 15-htws-soah history of smoking. REVIEW OF SYSTEMS: Feeling cold in his legs. Three months of progressive chills and occasional nausea. No chest pain. Stable dyspnea on exertion. No bright red blood per rectum. No hematuria. No nose bleeds. Otherwise 10-point review of systems is negative. PHYSICAL EXAM HR 52-70 BPM BP 160/75-176/65 MM HG obese man NAD no icterus neck - no lymphadenopathy - no bruit Heart: Normal S1, S2. There is a 2/6 systolic ejection murmur at right upper sternal border. Lungs are clear. Anterior abdomen is soft, positive bowel sounds. Extremities showed mild edema. The redness in his left dubon has gotten better. ASSESSMENT AND PLAN: This is a 81-year-old man with feeling cold. This is the reason for cardiology consultation from hospitalist physician Dr. Cartagena. There is a broad differential for feeling cold including infectious causes versus symptomatic bradycardia. Hospitalist physician is concerned about 2 possible sources of infection included prosthetic aortic valve (post TAVR) and left anterior dubon cellulitis, possibly in the setting of PAD. Patient has below the knee peripheral arterial disease that is evident on vascular ultrasound performed in 2016. I have personally reviewed the study. He has no ulcers and no claudication. In terms of possible endocarditis, his wbc is reassuring, he does not have left shift, He has no stigmata of endocarditis. His echocardiogram shows no valve prosthetic dysfunction. Of course, leaflets are difficult to see on the transthoracic echo, but I think the risk of transesophageal echo is greater than the benefit he is likely to derive from that procedure. I think the idea of working him up for peripheral arterial disease and determining whether he would benefit from percutaneous revascularization is something that can be evaluated as an outpatient by Dr. Hernandez. BP management per hospitalist physician. At this time, Cardiology will sign off unless the cultures come back positive and LACI is desired. In the interim, I think he has responded favorably to therapy for presumed cellulitis. Thank you very much for the opportunity to evaluate him. KHALIDA
--- NOTE | 2016-06-30 17:12 | NUR ---
Social Work-initial assessment: Data & Assessment: See initial assessment. Pt is a 81 y/o male who was admitted on 06/28/16 for CP per H&P. Pt's insurance is [employer] and PCP is Mary Petersen MD. EMR Reviewed. Pt's readmission score is 3-high risk. SW met with pt to discuss discharge planning, SW role explained and initial assessment complete. Pt is alert and oriented x3. Pt resides at home with where pt remains independent with basic ADLs. Pt does drive. Pt has no HH or SNF history. Pt has not completed DPOA/ advanced directive and is not interested in information. Pt has no watermelon inspector care or VA benefits. No discharge needs identified at this time. Pt's family to provide transport home at discharge. SW provided phone number and plan on white board in room. SW will continue to follow. Plan: Anticipated discharge home via POV when medically ready. No discharge needs identified at this time. SW to continue to follow if any needs arise. Navi Banegas LMSW, SUZY Addendum: 06/30/16 at 1719 by NAVI BANEGAS SS Amended: Links added.
--- NOTE | 2016-06-30 17:50 | NUR ---
Inpatient status effective today, LISANDRO signed.
--- NOTE | 2016-06-30 18:28 | NUR ---
Status Luther ruelas MD at 1827. Notified MD that pt continues to be bradycardic in the 40s since around lunch time. Asymptomatic. Last troponin 0.032. Last BP 159/65. Pt has no complaints. Stable. Addendum: 06/30/16 at 1838 by SHASHI CARDOSO RN Per , to continue to monitor for symptoms of bradycardia and if symptomatic, to transfer to higher level of care. Pt denies any SOB, dizziness, syncopal feelings. Pt states he feels "just fine".
--- NOTE | 2016-06-30 18:57 | PCM.PNMED ---
Subjective Date of Service Jun 30, 2016 Subjective Patient is seen and examined. He appears to be more comfortable today sitting up in his chair his facial swelling has gone down as well. Cardiology has started him on amlodipine telling 10 mg. This morning discussed the case with them and change his meds again. He says that he knows what a cord feels like but prior to coming to the ED. Operative day or so he was not feeling like himself nondescriptive nonspecific symptoms. He did not feel that he was having a cold or sinusitis. Called his daughter at home and discussed progress with her she states that she is a [employer] and used to seeing cellulitis that is why she was concerned. Her questions during his medical management were answered. Patient's leg appears much better today the erythema is much improved. He denies overnight fevers, chills, nausea, vomiting, chest pain. Wanting to know if she could go home. Exam Vital Signs Vital Sign - Last Date Time Temp Pulse Resp B/P Pulse Ox O2 Delivery O2 Flow Rate FiO2 06/30/16 06:01 58 06/30/16 00:05 36.9 16 166/55 94 Room Air Intake and Output 06/29/16 06/29/16 06/30/16 Cumulative From/Thru 15:00 23:00 07:00 06/28/16 15:55 - 06/30/16 05:55 Intake Total 2482 ml 747 ml 3529 ml Output Total 1175 ml 1600 ml Balance 1307 ml 747 ml 1929 ml Intake Oral 400 ml 700 ml IV Total 2082 ml 747 ml 2829 ml Output Urine Total 1175 ml 1600 ml Exam Gen.: No acute distress sitting up in chair, hard of hearing HEENT: Swelling in his eye lids has come down today Heart: Systolic clicking sound can be heard. Rate is regular Lungs: Clear to auscultation no crackles or wheezes Abdomen soft nontender Extremities: Erythema is much improved that left lower extremity 1+ swelling is present Neuro no focal deficits Psych: Negative for anxiety IVs and Medications Medications Reviewed: Medications were reviewed in detail Lab and Diagnostics Laboratory Tests Test 06/29/16 21:30 06/30/16 02:49 06/30/16 07:18 06/30/16 09:35 Troponin T 0.037ug/L (0.0-0.011) 0.047ug/L (0.0-0.011) 0.039ug/L (0.0-0.011) Thyroid Stimulating Hormone (TSH) 1.720uIU/mL (0.450-4.500) Prothrombin Time 31.9sec (8.1-12.5) Prothromb Time International Ratio 2.92ratio Sodium Level 136mEq/L (134-144) 137mEq/L (134-144) Potassium Level 3.8mEq/L (3.5-5.2) 4.0mEq/L (3.5-5.2) Chloride Level 102mEq/L (97-108) 101mEq/L (97-108) Carbon Dioxide Level 20mmol/L (18-29) 22mmol/L (18-29) Blood Urea Nitrogen 23mg/dL (8-27) 21mg/dL (8-27) Creatinine 1.18mg/dL (0.76-1.27) 1.18mg/dL (0.76-1.27) Estimat Glomerular Filtration Rate 63mL/min (>59) 63mL/min (>59) Glucose Level 118mg/dL (60-99) 115mg/dL (60-99) Calcium Level 8.7mg/dL (8.5-10.1) 9.1mg/dL (8.5-10.1) White Blood Count 6.1th/mm3 (3.8-10.1) Red Blood Count 3.70mil/mm3 (4.40-5.80) Hemoglobin 10.5g/dL (13.8-17.2) Hematocrit 33.3% (41.0-50.0) Mean Corpuscular Volume 90.0fL (81-100) Mean Corpuscular Hemoglobin 28.4pg (27.0-35.0) Mean Corpuscular Hemoglobin Concent 31.5% (32.0-37.0) Red Cell Distribution Width 16.0% (12.3-15.4) Platelet Count 219bil/L (150-400) Neutrophils (%) (Auto) 56.4% (40-74) Lymphocytes (%) (Auto) 21.3% (14-46) Monocytes (%) (Auto) 17.5% (4-12) Eosinophils (%) (Auto) 4.1% (0-5) Basophils (%) (Auto) 0.5% (0-3) Total Bilirubin 0.4mg/dL (0.0-1.2) Aspartate Amino Transf (AST/SGOT) 19U/L (0-50) Alanine Aminotransferase (ALT/SGPT) 14U/L (0-44) Alkaline Phosphatase 62U/L (25-160) Total Protein 6.7g/dL (6.4-8.4) Albumin 3.8g/dL (3.4-5.0) Test 06/30/16 15:25 Troponin T 0.032ug/L (0.0-0.011) Microbiology 06/28/16 Blood Culture - Preliminary, Resulted NO GROWTH AFTER 24 HOURS 06/30/16 Adenovirus DNA (PCR) - Final, Complete Not Detected 06/30/16 Coronavirus 229E PCR - Final, Complete Not Detected 06/30/16 Coronavirus HKU1 PCR - Final, Complete Not Detected 06/30/16 Coronavirus NL63 PCR - Final, Complete Not Detected 06/30/16 Coronavirus OC43 PCR - Final, Complete Not Detected 06/30/16 Influenza Type A (PCR) - Final, Complete Not Detected 06/30/16 Influenza Type B (PCR) - Final, Complete Not Detected 06/30/16 Human Metapneumovirus (PCR) (OSORIO) - Final, Complete Not Detected 06/30/16 Rhinovirus (PCR)(OSORIO) - Final, Complete Not Detected 06/30/16 Parainfluenza Virus Type 1 (PCR) - Final, Complete Not Detected 06/30/16 Parainfluenza Virus Type 2 (PCR) - Final, Complete Not Detected 06/30/16 Parainfluenza Virus Type 3 (PCR) - Final, Complete Not Detected 06/30/16 Parainfluenza Virus Type 4 (NAAT) - Final, Complete Not Detected 06/30/16 Respiratory Syncytial Virus (PCR)ME - Final, Complete Not Detected 06/30/16 Chlamydia pneumoniae (PCR) - Final, Complete Not Detected 06/30/16 Mycoplasma pneumoniae DNA Detection - Final, Complete Result Diagram: 06/29/16 0500 06/30/16 0249 X-Rays, CTs and MRIs CHEST X-Ray IMPRESSION: No acute process. Dictated by: Eliana Harris M.D. on 06/28/2016 at 17:08 Approved by: Eliana Harris M.D. on 06/28/2016 at 17:09 12-lead ECG RRR normal axis significant LBBB difficult to evaluate ST changes Cardiac Echo Impressions Normal sinus rhythm. Wide QRS complexes. Normal LV size, wall thickness, wall motion and LV systolic function. EF is 60-65%. Stage II disatolic dysfunction. Severe LA enlargement; borderline RV enlargement. Aortic valve is replaced by history with a stented bioprosthesis; it is functioning normally based on color flow Doppler. Leaflets are not well seen. Compared to prior study 01/09/2016 no changes have occurred. Assessment & Plan Patient is a 81 y.o. M with a past medical history of CAD with stents to the RCA and LAD antiplatelet therapy with Clopidogrel, Factor V Leiden, 2 PEs and DVT in 2011 and 2012 anticoagulated on Warfarin, TAVR in Dec, and LBBB, chronic lower leg edema on lasix. Patient is admitted for treatment of anemia, potential Left lower leg cellulitis, CP rule out 1. Left lower leg cellulitis, acute - Evolving erythem over left lower leg with clearly demarcated boundary, high suspicion for cellulitis, consider erysipelas, vs chronic venous stasis changes vs LLE DVT - CBC does not show elevation in WCT - Blood cultures ordered: Negative today -lactic acid within normal -Discontinued vancomycin, continue ceftriaxon - Wound check orders placed - US Doppler LLE ordered for AM: Negative for DVT - Continue cautious IVF management, encourage PO intake - Repeat CBC and BMP in AM Leg pain and cold lower extremities: -- Concern for peripheral arterial versus peripheral vascular disease: Cardiology agrees but also states that stenting lower leg is rather difficult and he can follow-up as an outpatient for DEVAUGHN etc. Leg stenting can be done as outpatient with Dr. Mcallister. We appreciate their recommendations -- Previous scans showed concern for atherosclerosis and right lower extremity 2. Elevated troponin, acute. Present on admission - CP resolved on admission - initial troponin elevated, not above previous baseline .029, r/o cardiac causes vs chronic elevation in troponin due to CKD - Trend troponin Q6H: Troponin is mildly elevated, discussed this with cardiology. They feel that because he had a recent Last year and also there was some concern for blocked arteries LAD, there may be an elevation in troches due to his current cellulitis versus viral infection. They feel that this can be followed as an outpatient with a close follow-up and then cardiac cath. If his troponins showed downward trend, and to discharge tomorrow a.m. with a close follow-up with Dr. Mcallister as suggested by Dr. Quintanilla - Morphine Q15 PRN minutes for severe chest pain - Nitroglycerin 0.4 SL PRN chest pain - Continue home blood pressure medications -- Viral respiratory panel is ordered and negative 3. Anemia, acute on chronic - On admision Hgb 3.47 not significantly below baseline, however patient is experiencing symptoms of anemia - TSH is ordered and within normal - Iron studies ordered, pending 4. Bradycardia: Patient has been bradycardic in mid 40s to mid 50s today late in the afternoon. He is asymptomatic. -- Consider transfer to ICU if he becomes symptomatic, for pacemaker. Chronic conditions Factor V Leiden - Continue warfarin Aortic stenosis s/p TAPVR -Is low risk of infective endocarditis in the absence of septic scenario -- Plan to switch to by mouth antibiotics tomorrow for cellulitis. Will consider doxycycline for Ceftin Ressistant Hypertension - Continue home medication -- Discontinued hydralazine to clonidine 0.1 twice a day, amlodipine 10 mg( Norvasc is added by cardiology) -- Blood pressures appear to be better controlled today. Hyperlipidemia - hold home medication - lipid panel ordered Coronary disease with LAD and RCA obstructive disease - sp stent continue anti platelet therapy Type II diabetes - medium correctional scale ordered COPD with moderate obstructive disease on pulmonary function tests - Duoneb Q6 PRN Disposition disposition patient will likely be discharged home tomorrow VTE Prophylaxis: Theraputic Anticoag with Warfarin Resuscitation Status: CPR: Attempt Resuscitation Stefani Cartagena DO Jun 30, 2016 06:21
[2016-06-30 19:33] LABS: Unsaturated Iron Binding 248.2 ug/dL
[2016-07-01] VITALS (10 sets, daily range): BP systolic 149–183; BP diastolic 62–79; PULSE 43–56; RESP 16–18; O2SAT 93–98
[2016-07-01] MEDS ORDERED: cefTRIAXone Inj 2,000 MG in Dextrose 5% Minibag Plus 50 ML IV SCH (03:30)
[2016-07-01 03:44] LABS: BASOPHILS % (AUTO) 0.2 % (0-3); EOSINOPHILS % (AUTO) 5.6 % (0-5); MONOCYTES % (AUTO) 15.4 % (4-12); Mean Corpuscular Hemoglobin 28.3 pg (27.0-35.0); NEUTROPHILS % (AUTO) 53.4 % (40-74); Platelet Count 223 bil/L (150-400)
[2016-07-01 03:52] LABS: INR 3.24 ratio
[2016-07-01] MEDS ORDERED: 0.9% Sodium Chloride 100 ML ONE (03:59)
[2016-07-01 05:12] LABS: TROPONIN T 0.034 ug/L (0.0-0.011)
--- NOTE | 2016-07-01 05:40 | NUR ---
Ricardo pt on tele and groundwater monitoring technician calls to report episodes of bradycardia, HR 38-42 occasionally as lows throughout the night. Pt remains sleeping in recliner, uses urinal, does not get up to ambulate this shift. René hose in place. No complaints of pain, SOB, or any cardiac distress. care continues
--- NOTE | 2016-07-01 08:21 | PCM.PHAPRO ---
Progress Warfarin Management: -will hold this evening's dose of warfarin as inr is slightly supratherapeutic at 3.24 Leticia Garrett [facility] Jul 01, 2016 08:21
[2016-07-01] MEDS: cloNIDine 0.1 mg Tablet PO SCH (08:30)
[2016-07-01] MEDS: MeTOProlol XL 25 mg ER24 Tablet PO SCH (09:00)
--- NOTE | 2016-07-01 17:22 | PCM.PNMED ---
Subjective Date of Service Jul 01, 2016 Subjective Patient feels like his leg is about the same read it has been, edema is better with the support hose put on 06/30. Not having any chest pain, dyspnea nausea or vomiting Exam Vital Signs Vital Sign - Last Date Time Temp Pulse Resp B/P Pulse Ox O2 Delivery O2 Flow Rate FiO2 07/01/16 12:26 36.4 48 18 179/79 98 Room Air Intake and Output 06/30/16 06/30/16 07/01/16 Cumulative From/Thru 14:59 22:59 06:59 06/28/16 15:55 - 07/01/16 05:46 Intake Total 520 ml 475 ml 4924 ml Output Total 1600 ml 1275 ml 6425 ml Balance -1080 ml -800 ml -1501 ml Intake Oral 400 ml 300 ml 1800 ml IV Total 120 ml 175 ml 3124 ml Output Urine Total 1600 ml 1275 ml 6425 ml # Voids 1 Exam Gen.- A+ O 3 no apparent distress. Eyes- open conjunctiva clear, pupils equal nonicteric ENT- ears normal, nose normal Neck- supple/trach midline CVS-normal rate Lungs-normal rate no evidence of respiratory distress GI-flat abdomen Musc- moving 4 no obvious deformity Neuro- cranial nerves II through XII intact to gross examination, nonfocal Skin- warm and dry, no rashes/lesions/wounds noted Psych- pleasant and appropriate, Patient appears to have stasis dermatitis of the left lower extremity it is not bright red however it is concerning that it seems to appeared rather suddenly a few days ago. Lab and Diagnostics Result Diagram: 07/01/16 02007/01/16 020 X-Rays, CTs and MRIs CHEST X-Ray IMPRESSION: No acute process. Dictated by: Eliana Harris M.D. on 06/28/2016 at 17:08 Approved by: Eliana Harris M.D. on 06/28/2016 at 17:09 12-lead ECG RRR normal axis significant LBBB difficult to evaluate ST changes Cardiac Echo Impressions Normal sinus rhythm. Wide QRS complexes. Normal LV size, wall thickness, wall motion and LV systolic function. EF is 60-65%. Stage II disatolic dysfunction. Severe LA enlargement; borderline RV enlargement. Aortic valve is replaced by history with a stented bioprosthesis; it is functioning normally based on color flow Doppler. Leaflets are not well seen. Compared to prior study 01/09/2016 no changes have occurred. Assessment & Plan Patient is a 81 y.o. M admitted 06/28 potential Left lower leg cellulitis, CP r/o 07/01 leg looks benign, patient was on vancomycin stopped early on, ceftriaxone discontinued 07/01 starting patient on Keflex. Medically complex patient meeting for the first time #HTN patient on metoprolol 25 mg daily but bradycardic, losartan 100 mg daily, amlodipine 10 mg daily?, He was on hydralazine 100 mg or 50 mg 3 times a day and this was discontinued. We will resume 25 mg every 4 when necessary # Left lower leg cellulitis, acute versus stasis dermatitis- dosing Keflex 500mg 4 times a day, recommend continuing support hose - Blood cultures ordered: Negative today - Wound check orders placed not sure there is even a wound to evaluate 07/01 - US Doppler LLE ordered for AM: Negative for DVT # Leg pain and cold lower extremities: Support hose and outpatient follow-up -- Concern for peripheral arterial versus peripheral vascular disease: Cardiology agrees but also states that stenting lower leg is rather difficult and he can follow-up as an outpatient for DEVAUGHN etc. Leg stenting can be done as outpatient with Dr. Mcallister. We appreciate their recommendations -- Previous scans showed concern for atherosclerosis and right lower extremity #. Elevated troponin, acute. Present on admission. Likely chronic strain, cardiology consult appreciated no further follow-up at this time. - CP resolved on admission - initial troponin elevated, not above previous baseline .029, r/o cardiac causes vs chronic elevation in troponin - Trend troponin Q6H: Troponin is mildly elevated, discussed this with cardiology. They feel that because he had a recent Last year and also there was some concern for blocked arteries LAD, there may be an elevation in troches due to his current cellulitis versus viral infection. They feel that this can be followed as an outpatient with a close follow-up and then cardiac cath. If his troponins showed downward trend, and to discharge tomorrow a.m. with a close follow-up with Dr. Mcallister as suggested by Dr. Quintanilla - Morphine Q15 PRN minutes for severe chest pain - Nitroglycerin 0.4 SL PRN chest pain - Continue home blood pressure medications #. Anemia, acute on chronic - On admision Hgb 10.6 not significantly below baseline, however patient is experiencing symptoms of anemia - TSH is ordered and within normal - Iron studies ordered, pending #. Bradycardia: Patient has been bradycardic in mid 40s to mid 50s today late in the afternoon. He is asymptomatic. Chronic conditions Factor V Leiden - Continue warfarin Aortic stenosis s/p TAPVR -Is low risk of infective endocarditis in the absence of septic scenario -- Plan to switch to by mouth antibiotics tomorrow for cellulitis. Will consider doxycycline for Ceftin Ressistant Hypertension - Continue home medication -- Discontinued hydralazine to clonidine 0.1 twice a day, amlodipine 10 mg( Norvasc is added by cardiology) -- Blood pressures appear to be better controlled today. Hyperlipidemia - hold home medication - lipid panel ordered Coronary disease with LAD and RCA obstructive disease - sp stent continue anti platelet therapy Type II diabetes - medium correctional scale ordered COPD with moderate obstructive disease on pulmonary function tests - Duoneb Q6 PRN Disposition disposition patient will likely be discharged home tomorrow VTE Prophylaxis: Theraputic Anticoag with Warfarin VTE Mechanical Devices: Anti-Embolic stockings Resuscitation Status: CPR: Attempt Resuscitation Jarek Olmos MD Jul 01, 2016 17:22
--- NOTE | 2016-07-01 19:22 | NUR ---
Cardiac Pt continues to be hypertensive and asymptomatic bradycardic. Dr. Olmos reviewing medications and DC'd Metoprolol, restarted home Hydralazine and added parameters for Clonidine administration. Pt is wearing CLAU hose but had increased edema in BLE after having his legs dependent most of the morning. Swelling is decreasing with them elevated in bed. Per daughter, a manager imaging spoke with them and discussed a potential pacemaker being placed tomorrow.
--- NOTE | 2016-07-02 00:21 | PROG NOTE ---
[address] [address] PROGRESS NOTE PATIENT: LANDON RICH : 1935 MR#: [id number] ADMIT: 06/28/2016 JOB ID: [id number] DATE: 07/01/2016 CHIEF COMPLAINT: Feeling cold. SUBJECTIVE: Overnight, patient has not felt cold. He says he is feeling tired. OBJECTIVE: Vital signs: Patient has been bradycardic on telemetry. His heart rate is in the 45-55 beats per minute range. Temperature 36.7. Blood pressure 149/63, up to 183/72. He is satting 96% to 98% on room air. Obese man, in no apparent distress. Eyes: No scleral icterus. Neck is supple. No lymphadenopathy. Heart: Normal S1, S2. There is a 2/6 systolic ejection murmur at right upper sternal border. Lungs are clear. Anterior abdomen is soft, positive bowel sounds. Extremities showed mild edema. The redness in his left dubon has gotten better. LABORATORIES: Reviewed. EKG shows old left bundle-branch block. Hematocrit is stable at 31. Creatinine 1.16. Potassium 3.6. Thyroid is reassuring as of June 30, 2016. Troponin T peaked at 0.04 and has been coming down ever since. ASSESSMENT AND PLAN: This is a 81-year-old man with multiple cardiovascular issues, including diabetes, hypertension, hyperlipidemia, hypercoagulable state, history of pulmonary embolism, severe aortic stenosis, status post TAVR April 03, 2016 , and history of coronary artery disease status post percutaneous coronary intervention to his right coronary artery. Of note, he has diffusely diseased left anterior descending that was not intervened upon, and I personally reviewed that cath. The patient says that ever since his intervention he has been feeling cold and he wonders if it has to do with maybe a manifestation of symptomatic bradycardia. His daughter, I and the patient had been a meeting today to discuss symptoms. We discussed that initially I understand there was concern that maybe his feeling cold was a sign of infection. However, since cultures are negative, his white count is normal, and he is not toxic, it seems unlikely. It is possible that feeling cold is multifactorial due to a combination of anemia with hematocrit of 31%, on Plavix and warfarin, as well as symptomatic bradycardia. I discussed risks, benefits and alternatives of permanent pacemaker implant and patient agreed to proceed. I contacted my partner, Dr. Carver, and he will schedule the pacemaker implant. He will decide the timing of the implant depending on patient's clinical status, and particularly taking into consideration the wound on his left anterior dubon. In the meantime, blood pressure management is complicated by symptomatic bradycardia. I discontinued Toprol-XL. Clonidine has been on hold. I appreciate Dr. Olmos's expertise, and he will adjust his hydralazine to improve patient's blood pressure. Will continue hydrochlorothiazide, amlodipine and maximum dose of losartan. Thank you very much for the opportunity to participate in this patient's care. KHALIDA
[2016-07-02 02:52] VITALS: BP 140/74; PULSE 50; RESP 17; O2SAT 97
[2016-07-02 05:58] VITALS: BP 159/74; PULSE 50
--- NOTE | 2016-07-02 06:19 | NUR ---
Cardiac Per new orders held metroprolol for BP 179/74 and HR 52, given apresoline PRN due to SBP >160. No further apresoline required this shift. Per tele genaro into high 40s, no episodes into 30s. CLAU hose removed while pt in bed to sleep by his request. No complaints of chest pain or SOB. Less edema in feet, remains in ankles. Care continues
[2016-07-02 07:17] LABS: INR 2.37 ratio
--- NOTE | 2016-07-02 07:41 | PCM.PHAPRO ---
Progress Warfarin Management by Pharmacy: -Indication: dvt/pe hx -Home Dose: warfarin 5mg on Th and 7.5mg all other days -Concurrent Antiplatelet meds: Clopidogrel -Drug Interaction: cephalexin may increase inr -Goal Inr: 2-3 -[id number] Score: 4 -Plan: will resume home dose of warfarin 7.5mg this evening and follow Leticia Garrett [facility] Jul 02, 2016 07:41
[2016-07-02 09:44] VITALS: BP 157/76; PULSE 51; RESP 16; O2SAT 99
[2016-07-02 10:24] VITALS: PULSE 49
--- NOTE | 2016-07-02 12:48 | PCM.DIMED ---
Discharge Instructions Date of Service Jul 02, 2016 Dates of Hospitalization Jun 28, 2016 at 20:51 Discharge Diagnosis Discharge Diagnosis Left lower extremity cellulitis Hypertension bradycardia ? Symptomatic? Peripheral vascular disease Diet Heart Healthy Call your provider Fever or Chills, Shortness of breath Patient Instructions I recommended getting a blood pressure cuff and recording your pulse and blood pressure and how you are feeling 2-3 times a day and following up with primary care provider and inspector sheet metal parts in 1 week and within the month respectively. Keep an eye on the left lower extremity if it becomes red putting up and if it does not go down quickly or begin spreading up her leg or you feel generalized malaise all M.D. he may need antibiotics. Follow-up Provider: Edison Mott MD Follow-up with PCP in: 1 week Provider: Jennifer Mcallister MD Follow-up in: Other (call probably an appointment within a month) Jarek Olmos MD Jul 02, 2016 12:48
[2016-07-02] MEDS ORDERED: AMLO5TAB2 PO (12:51)
[2016-07-02] MEDS ORDERED: CEPH500C PO (12:51)
--- NOTE | 2016-07-02 12:51 | NUR ---
Social Work- Readiness for Discharge Data: EMR reviewed. Pt is on day 4 of hospitalization for CP per H&P. Pt is medically stable for discharge. MD consulted with Cardiology regarding pt's pacemaker. Pt is not a candidate at this time. Pt's family to provide transport home at discharge. No anticipated discharge needs. SW will continue to follow. Assessment: Pt who is independent at base. Plan: Anticipated discharge home via POV when medically ready. No discharge needs identified at this time. SW to continue to follow if any needs arise. Janel Kearney MSW
--- NOTE | 2016-07-02 12:57 | PCM.DC.MED ---
Discharge Summary Date of Service Jul 02, 2016 Dates of Hospitalization Date of Hospital Admission Jun 28, 2016 at 20:51 Date of Discharge: Jul 02, 2016 Providers: Admitting Physician: Ambrosio Lane MD Primary Care Physician: Edison Mott MD Attending Physician: Ambrosio Lane MD Diagnosis at Time of Discharge Diagnosis at Time of Discharge Left lower extremity cellulitis Hypertension bradycardia ? Symptomatic? Peripheral vascular disease Consultations Cardiology Dr. Quintanilla Procedures XRay, CTs & MRIs CHEST X-Ray IMPRESSION: No acute process. Dictated by: Eliana Harris M.D. on 06/28/2016 at 17:08 Approved by: Eliana Harris M.D. on 06/28/2016 at 17:09 ECG 12 Lead RRR normal axis significant LBBB difficult to evaluate ST changes Cardiac Echo Impression Normal sinus rhythm. Wide QRS complexes. Normal LV size, wall thickness, wall motion and LV systolic function. EF is 60-65%. Stage II disatolic dysfunction. Severe LA enlargement; borderline RV enlargement. Aortic valve is replaced by history with a stented bioprosthesis; it is functioning normally based on color flow Doppler. Leaflets are not well seen. Compared to prior study 01/09/2016 no changes have occurred. Brief History Patient is a 81 y.o. M with a past medical history of CAD with stents to the RCA and LAD antiplatelet therapy with Clopidogrel, Factor V Leiden, 2 PEs and DVT in 2011 and 2012 anticoagulated on Warfarin, TAVR in Dec, and LBBB, chronic lower leg edema on lasix. He presented tot ED with complaint of nausea and chills. Patient stated he has had a 3 month history of Cold intolerance and fatigue. He stated that this began a couple of months ago, and he previously as had no problems with feeling cold. Patient stated that he has had to wear increasingly more layers of clothing and turn up the heat in his home. Associated with worsening nausea, increase in blood pressure, worsening shortness of breath over the past two weeks. Additionally patient and his daughter voiced concerning over the changing of color of hi left lower leg that has beem, gradually becoming red and appears to have been advancing over the past months.Patient denies dysuria, constipation, diarrhea, blood in stool, vomiting, coughing up blood, back pain, chest pain, chest pressure, abdominal pain, syncope, vertigo, change in vision, headache. Hospital Course 81 y.o. M admitted 06/28 potential Left lower leg cellulitis, CP r/o 07/01 leg looks benign, patient was on vancomycin stopped early on, ceftriaxone discontinued 07/01 starting patient on Keflex. Medically complex patient meeting for the first time 07/02 patient was seen in the evening by cardiology and was thought perhaps he would benefit from pacemaker implantation, he was seen by Dr. Miramontes today and it was elected not that he did not need a pacemaker at this time so therefore is being discharged home. #HTN patient on metoprolol 25 mg daily but bradycardic, losartan 100 mg daily, amlodipine 10 mg daily?, He was on hydralazine 100 mg or 50 mg 3 times a day and this was discontinued. We will resume 25 mg every 4 when necessary -Patient was previously on hydralazine 100 mg 3 times a day I am going to resume his prior regimen and put him on amlodipine 10 mg daily as he has been on here -SBP has been running 150-170 with only when necessary hydralazine. # Left lower leg cellulitis, acute versus stasis dermatitis- dosing Keflex 500mg 4 times a day, recommend continuing support hose - Blood cultures ordered: Negative today - Wound check orders placed not sure there is even a wound to evaluate 07/01 - US Doppler LLE ordered for AM: Negative for DVT # Leg pain and cold lower extremities: Support hose and outpatient follow-up -- Concern for peripheral arterial versus peripheral vascular disease: Cardiology agrees but also states that stenting lower leg is rather difficult and he can follow-up as an outpatient for DEVAUGHN etc. Leg stenting can be done as outpatient with Dr. Mcallister. We appreciate their recommendations -- Previous scans showed concern for atherosclerosis and right lower extremity #. Elevated troponin, acute. Present on admission. Likely chronic strain, cardiology consult appreciated no further follow-up at this time. - CP resolved on admission - initial troponin elevated, not above previous baseline .029, r/o cardiac causes vs chronic elevation in troponin - Trend troponin Q6H: Troponin is mildly elevated, discussed this with cardiology. They feel that because he had a recent Last year and also there was some concern for blocked arteries LAD, there may be an elevation in troches due to his current cellulitis versus viral infection. They feel that this can be followed as an outpatient with a close follow-up and then cardiac cath. If his troponins showed downward trend, and to discharge tomorrow a.m. with a close follow-up with Dr. Mcallister as suggested by Dr. Quintanilla - Morphine Q15 PRN minutes for severe chest pain - Nitroglycerin 0.4 SL PRN chest pain - Continue home blood pressure medications #. Anemia, acute on chronic - On admision Hgb 10.6 not significantly below baseline, however patient is experiencing symptoms of anemia - TSH is ordered and within normal - Iron studies ordered, pending #. Bradycardia: Patient has been bradycardic in mid 40s to mid 50s today late in the afternoon. He is asymptomatic. Chronic conditions Factor V Leiden - Continue warfarin Aortic stenosis s/p TAPVR -Is low risk of infective endocarditis in the absence of septic scenario -- Plan to switch to by mouth antibiotics tomorrow for cellulitis. Will consider doxycycline for Ceftin Ressistant Hypertension - Continue home medication -- Discontinued hydralazine to clonidine 0.1 twice a day, amlodipine 10 mg( Norvasc is added by cardiology) -- Blood pressures appear to be better controlled today. Hyperlipidemia - hold home medication - lipid panel ordered Coronary disease with LAD and RCA obstructive disease - sp stent continue anti platelet therapy Type II diabetes - medium correctional scale ordered COPD with moderate obstructive disease on pulmonary function tests - Duoneb Q6 PRN Disposition disposition patient will likely be discharged home tomorrow Exam Vital Signs (Last) Date Time Temp Pulse Resp B/P Pulse Ox O2 Delivery O2 Flow Rate FiO2 07/02/16 10:24 49 07/02/16 09:44 36.8 16 157/76 99 Room Air Exam Gen.- A+ O 3 no apparent distress. Eyes- open conjunctiva clear, pupils equal nonicteric ENT- ears normal, nose normal Neck- supple/trach midline CVS-normal rate Lungs-normal rate no evidence of respiratory distress GI-flat abdomen Musc- moving 4 no obvious deformity Neuro- cranial nerves II through XII intact to gross examination, nonfocal Skin- warm and dry, no rashes/lesions/wounds noted Psych- pleasant and appropriate, Patient appears to have stasis dermatitis of the left lower extremity it is not bright red however it is concerning that it seems to appeared rather suddenly a few days ago. Test 06/28/16 16:09 3/24/17 16:25 06/29/16 01:01 06/29/16 05:00 Lactic Acid Level 1.1mmol/L (0.4-2.0) Procalcitonin 0.04ng/mL (0.00-0.08) Magnesium Level 1.9mg/dL (1.6-2.6) Pro-B-Type Natriuretic Peptide 640.1pg/mL (0-486) Hold Kaur Top Tube Received (Received) Urine Color Yellow (YELLOW) Urine Appearance Clear (CLEAR,HAZY) Urine pH 6.0 (5.0-8.0) Urine Specific [place] 1.020 (1.003-1.035) Urine Protein 100mg/dL (NEG,TRACE) Urine Glucose (UA) Negativemg/dL (NEGATIVE) Urine Ketones Negativemg/dL (NEGATIVE) Urine Occult Blood Negative (NEGATIVE) Urine Nitrite Negative (NEGATIVE) Urine Bilirubin Negative (NEGATIVE) Urine Urobilinogen Normalmg/dL (NORMAL) Urine Leukocyte Esterase Negative (NEGATIVE) Urine RBC 0-2/hpf (0-2) Urine WBC 0-5/hpf (0-5) Urine Epithelial Cells Occasional/hpf (NONE-MOD) Urine Crystals Amorphous urates (NONE Urine Bacteria Few/hpf (NONE-FEW) Urine Hyaline Casts None/lpf (NONE) Urine Granular Casts None seen (NONE SEEN) Urine Waxy Casts None seen (NONE SEEN) Urine Red Blood Cell Casts None seen (NONE SEEN) Urine White Blood Cell Casts None seen (NONE SEEN) Urine Mucus None seen (None Seen) Urine Trichomonas None seen (NONE SEEN) Urine Yeast None (NONE SEEN) Urinalysis Comment None Urine Culture Reflexed Not indicated Erythrocyte Sedimentation Rate 29mm/hr (0-30) Triglycerides Level 106mg/dL (0-149) Cholesterol Level 99mg/dL (100-199) LDL Cholesterol, Calculated 48.800mg/dL (0-99) VLDL Cholesterol 21.200mg/dL HDL Cholesterol 29mg/dL (>39) Cholesterol/HDL Ratio 3.41 (0.0-4.4) Test 06/29/16 11:30 06/30/16 07:18 06/30/16 15:25 07/01/16 02:01 Rheumatoid Factor 7.9IU/mL (0.0-13.9) Reticulocyte Count,Calculated 1.8% (0.6-2.6) Total Bilirubin 0.4mg/dL (0.0-1.2) Aspartate Amino Transf (AST/SGOT) 19U/L (0-50) Alanine Aminotransferase (ALT/SGPT) 14U/L (0-44) Alkaline Phosphatase 62U/L (25-160) Total Protein 6.7g/dL (6.4-8.4) Albumin 3.8g/dL (3.4-5.0) Iron Level 24ug/dL (35-150) Total Iron Binding Capacity 272ug/dL (250-450) Percent Iron Saturation 9%sat (15-50) Unsaturated Iron Binding 248.2ug/dL Ferritin 161ng/mL (30-400) Thyroid Stimulating Hormone (TSH) 3.780uIU/mL (0.450-4.500) White Blood Count 5.7th/mm3 (3.8-10.1) Red Blood Count 3.43mil/mm3 (4.40-5.80) Hemoglobin 9.7g/dL (13.8-17.2) Hematocrit 31.2% (41.0-50.0) Mean Corpuscular Volume 91.0fL (81-100) Mean Corpuscular Hemoglobin 28.3pg (27.0-35.0) Mean Corpuscular Hemoglobin Concent 31.1% (32.0-37.0) Red Cell Distribution Width 15.6% (12.3-15.4) Platelet Count 223bil/L (150-400) Neutrophils (%) (Auto) 53.4% (40-74) Lymphocytes (%) (Auto) 25.1% (14-46) Monocytes (%) (Auto) 15.4% (4-12) Eosinophils (%) (Auto) 5.6% (0-5) Basophils (%) (Auto) 0.2% (0-3) Sodium Level 138mEq/L (134-144) Potassium Level 3.6mEq/L (3.5-5.2) Chloride Level 101mEq/L (97-108) Carbon Dioxide Level 20mmol/L (18-29) Blood Urea Nitrogen 25mg/dL (8-27) Creatinine 1.16mg/dL (0.76-1.27) Estimat Glomerular Filtration Rate 65mL/min (>59) Glucose Level 109mg/dL (60-99) Calcium Level 9.0mg/dL (8.5-10.1) Troponin T 0.034ug/L (0.0-0.011) Vitamin B12 Level 218pg/mL (211-946) Folate 11.8ng/mL (>3.0) Test 07/02/16 06:21 Prothrombin Time 25.8sec (8.1-12.5) Prothromb Time International Ratio 2.37ratio Discharge Medications Discharge Medications Amlodipine (Amlodipine) 5 Mg Tablet 10 MG PO DAILY Prescribed by: CHARISSA SIMMS MD Atorvastatin (Lipitor) 10 Mg Tab 10 MG PO HS (Reported) Cephalexin (Cephalexin) 500 Mg Capsule 500 MG PO QID Prescribed by: CHARISSA SIMMS MD Clopidogrel (Clopidogrel) 75 Mg Tablet 75 MG PO DAILY Prescribed by: NESTOR MARTIN Hydralazine (Hydralazine) 100 Mg Tablet 100 MG PO TID (Reported) Hydrochlorothiazide (Hydrochlorothiazide) 25 Mg Tablet 25 MG PO DAILY (Reported ) Losartan Potassium (Losartan Potassium) 100 Mg Tablet 100 MG PO HS (Reported) Metoprolol Succinate ER (Metoprolol Succinate ER) 25 Mg Tab.er.24h 25 MG PO QAM (Reported) Pantoprazole DR (Pantoprazole DR) 40 Mg Tablet.dr 40 MG PO QAM (Reported) Warfarin Sodium (Warfarin Sodium) 5 Mg Tablet 7.5 MG PO DAILY except ( Reported) Warfarin Sodium (Warfarin Sodium) 5 Mg Tablet 5 MG PO Q FRIDAY (Reported) As needed Acetaminophen (Acetaminophen) 500 Mg Tablet 1,000 MG PO Q6H PRN PRN For Pain ( Reported) Budesonide/Formoterol 160-4.5 mcg Inh (Symbicort 160-4.5 mcg Inh) 120 Puff Inhaler 1 PUFF INHALATION BID PRN PRN For Shortness of Breath (Reported) Nitroglycerin SL (Nitrostat) 0.4 Mg Tab.subl 0.4 MG SL PRN PRN PRN For Chest Pain 1 tab under your tongue for chest pain. May repeat up to 3 tabs if pain continues. Call 911 if pain does not resolve. Prescribed by: NESTOR MARTIN Followup Plan Disposition: Patient going home he is ambulating the halls with these Follow-up plan Patient instructed to check blood pressures and long how he feels his blood pressure and his pulse, resume his home regimen plus amlodipine, also to watch his leg. He should have follow-up with his fast foods worker within the month, and primary care provider within the week if at all possible. Discharge Diet: Heart Healthy Patient Instructions I recommended getting a blood pressure cuff and recording your pulse and blood pressure and how you are feeling 2-3 times a day and following up with primary care provider and fast foods worker in 1 week and within the month respectively. Keep an eye on the left lower extremity if it becomes red putting up and if it does not go down quickly or begin spreading up her leg or you feel generalized malaise all M.D. he may need antibiotics. Follow-up Provider: Edison Mott MD Follow-up with PCP in: 1 week Provider: Jennifer Mcallister MD Follow-up in: Other (call probably an appointment within a month) Time spent Greater than 30 minutes Attending Statement Consider ambulatory blood pressure monitoring copies to: Edison Mott MD, Andris E MD Jul 02, 2016 12:57
[2016-07-02 13:54] VITALS: BP 173/69; PULSE 48; RESP 16; O2SAT 98
--- NOTE | 2016-07-02 14:23 | NUR ---
Social Work- Readiness for Discharge Data: EMR reviewed. Pt is on day 4 of hospitalization for CP per H&P. Pt is medically stable for discharge. MD consulted with Cardiology regarding pt's pacemaker. Pt is not a candidate at this time. Pt's family to provide transport home at discharge. No discharge needs. Assessment: Pt who is independent at base. Plan: Pt to discharge home via POV when medically ready. No discharge needs identified at this time. Janel Kearney BILL CHECKER
--- NOTE | 2016-07-02 14:59 | NUR ---
DISCHARGE Patient ambulating in hallway with just SBA, no loss of balance, gait steady. Patient was bradycardiac early am, HR 51. Held am metoprolol. Reviewed discharge paperwork with patient and daughter at bedside. Instructed patient to use home BP cuff 2-3x/day,especially prior to taking blood pressure medications, and to keep a log of them to take with to PCP and cardiology follow up appointments. Patient acknowledged and stated he had a BP cuff at home that he can use. Saline lock IV was removed from right arm, catheter intact. Patient got dressed independently and escorted outside to daughter's vehicle. Left with all personal belongings.
[2016-07-02] MEDS ORDERED: Warfarin 5 MG, Warfarin 2.5 MG PO SCH ×2 (17:00)
[2016-09-07] MEDS ORDERED: ACET-2766 PO (10:22)
[2016-09-07] MEDS ORDERED: NITR0.4T6 SL (10:22)
== END 2016-07-02 14:22 | disposition home or self-care (01) | DRG 603 ==
LOC: SED 15:41 → OBSVTOIN 20:51 → OSC 20:51
PROVIDERS: ADMIT Hospitalist; ATTEND Hospitalist
DX: L03.116 Cellulitis of left lower limb (principal); D68.51 Activated protein C resistance; I25.10 Atherosclerotic heart disease of native coronary artery without angina pectoris; Z79.01 Long term (current) use of anticoagulants; Z86.711 Personal history of pulmonary embolism; I10 Essential (primary) hypertension; E78.5 Hyperlipidemia, unspecified; E11.9 Type 2 diabetes mellitus without complications; J44.9 Chronic obstructive pulmonary disease, unspecified; Z87.891 Personal history of nicotine dependence; R07.9 Chest pain, unspecified; D64.9 Anemia, unspecified; I48.0 Paroxysmal atrial fibrillation; I73.9 Peripheral vascular disease, unspecified

== ENCOUNTER 2016-08-05 15:29 | Inpatient (IN) | payer MEDICARE, OTHER ==
[~2016-08-05] VITALS: Ht 177.8 cm; Wt 111.3 kg
[2016-08-05] VITALS (7 sets, daily range): BP systolic 130–167; BP diastolic 56–67; PULSE 56–66; RESP 14–20; O2SAT 97–99
[~2016-08-05 15:29] MED LIST changes: +AMLO5TAB2 PO; -ATOR20TA PO; +ATRV10T PO; +CEPH500C PO; -FELO10TA3 PO; -FUR20 PO; -HYDR-3940 PO; -HYDR-4003 PO; +HYDR100T27 PO; +HYDR25TA4 PO; +LOSA100T29 PO; -LOSA1TAB70 PO; -LOV80 SUBQ; +METO25TA99 PO; -PANT40TA2 PO; +PANT40TA3 PO; +Propofol 10,000 mCg/mL 20 mL Inj ONE; +SYMINH INHALATION
--- NOTE | 2016-08-05 16:10 | ED.REPORT ---
HPI-General Illness Date of Service August 05, 2016 ED Provider: Andrew Juarez DO Pt is a 81 y/o male anticoagulated on Warfarin w/ a hx of prior PE, factor V Leiden, aortic stenosis s/p TAVR, HTN, hyperlipidemia, CAD s/p stenting, NIDDM, COPD presenting to the ED by request of his salesperson parts Dr. Mcallister due to anemia. He c/o dyspnea on exertion and fatigue for 2 weeks. He was experiencing black stool which began 2.5 weeks ago, now resolved for 1 week. He reports RLE swelling for 2 days which he states is normal for him to have intermittently for many months. He has never been anemic previously and has never required blood transfusion. He notes ongoing chills since March as well as chronic LLE venous stasis changes without pain. Nursing Notes Stated Complaint: RECEIVE BLOOD,SENT BY Chief Complaint: General Complaint Nursing Notes Reviewed: Yes Allergies: Coded Allergies: No Known Allergies (Unverified , 06/28/16) Scheduled Amlodipine (Amlodipine) 5 Mg Tablet 10 MG PO DAILY Atorvastatin (Lipitor) 10 Mg Tab 10 MG PO HS Cephalexin (Cephalexin) 500 Mg Capsule 500 MG PO QID Clopidogrel (Clopidogrel) 75 Mg Tablet 75 MG PO DAILY Hydralazine (Hydralazine) 100 Mg Tablet 100 MG PO TID Hydrochlorothiazide (Hydrochlorothiazide) 25 Mg Tablet 25 MG PO DAILY Losartan Potassium (Losartan Potassium) 100 Mg Tablet 100 MG PO HS Metoprolol Succinate ER (Metoprolol Succinate ER) 25 Mg Tab.er.24h 25 MG PO QAM Pantoprazole DR (Pantoprazole DR) 40 Mg Tablet.dr 40 MG PO QAM Warfarin Sodium (Warfarin Sodium) 5 Mg Tablet 7.5 MG PO DAILY except Warfarin Sodium (Warfarin Sodium) 5 Mg Tablet 5 MG PO Q FRIDAY Scheduled PRN Acetaminophen (Acetaminophen) 500 Mg Tablet 1,000 MG PO Q6H PRN PRN For Pain Budesonide/Formoterol 160-4.5 mcg Inh (Symbicort 160-4.5 mcg Inh) 120 Puff Inhaler 1 PUFF INHALATION BID PRN PRN For Shortness of Breath Nitroglycerin SL (Nitrostat) 0.4 Mg Tab.subl 0.4 MG SL PRN PRN PRN For Chest Pain 1 tab under your tongue for chest pain. May repeat up to 3 tabs if pain continues. Call 911 if pain does not resolve. General Time Seen by MD: 16:02 Chief Complaint Other (anemia) Hx Obtained From: Patient Arrived By: Walk-in Sudden in Onset?: No Onset Occurred: More than a week ago... (2 weeks) Symptom Duration: Since onset Severity: Current: No pain currently Severity: Maximum: No pain Similar Sx Previous: No Past Medical History Past Medical History Notes: Designated Broker Dr. Mcallister D/Sera Friday01/05/16 from [facility] following TAVR 01/02 ( cardiology attending and surgeon Dr. Orellana, Dr. 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 Chan Status post valve replacement (TAVR) at [facility] (bioprosthetic) complicated by pseudoaneurysm repair 01/03/2016 Smoking History Former Smoker Ambulatory Status Independent Review of Systems Full Review of Systems Constitutional: Reports: Fatigue, Weakness - generalized, Denies: Chills, Fever Cardiovascular: Reports: Dyspnea on exertion, Denies: Chest pain GI: Reports: Bloody/tarry stool, Denies: Abdominal pain, Nausea, Vomiting Musculoskeletal: Denies: Extremity pain Complete sys rev & neg: except as marked. Physical Exam Vital Signs Vital Signs Date Time Temp Pulse Resp B/P Pulse Ox O2 Delivery O2 Flow Rate FiO2 08/05/16 15:39 37.1 57 20 130/56 99 Initial VS: Reviewed, Vital signs normal Head / Eyes: Atraumatic, Normocephalic, PERRL ENT: Mucous membranes moist, Conjunctiva normal, No scleral icterus Neck: Supple, Full range of motion Respiratory: Breath sounds normal, Clear to auscultation, No respiratory distress Abdomen / GI: Soft, Non-tender Skin: Warm, Dry, No cyanosis Neurologic: Alert, Oriented, Nonfocal Psychiatric: Mood/affect normal, Behavior normal, Normal thought content General/Constitutional: Awake, Alert, No acute distress, Cooperative, Not toxic appearing Appearance / Presentation: Positive: Pale Cardiovascular: Regular rhythm, Heart sounds NL Heart Rate / Rhythm: Positive: Bradycardia (mild) Venous stasis changes bilaterally Rectum / Perineum: No gross blood Brown stool Faintly guaiac positive Interpretation & Diagnostics Lab Results Interpretation Result Diagram: 08/05/16 1641 08/05/16 1641 Test 08/05/16 16:41 White Blood Count 6.1th/mm3 (3.8-10.1) Red Blood Count 2.40mil/mm3 (4.40-5.80) Hemoglobin 6.9g/dL (13.8-17.2) Hematocrit 22.7% (41.0-50.0) Mean Corpuscular Volume 94.6fL (81-100) Mean Corpuscular Hemoglobin 28.8pg (27.0-35.0) Mean Corpuscular Hemoglobin Concent 30.4% (32.0-37.0) Red Cell Distribution Width 17.0% (12.3-15.4) Platelet Count 280bil/L (150-400) Neutrophils (%) (Auto) 61% (40-74) Lymphocytes (%) (Auto) 19% (14-46) Monocytes (%) (Auto) 17% (4-12) Eosinophils (%) (Auto) 3% (0-5) Basophils (%) (Auto) 0% (0-3) Prothrombin Time 36.0sec (8.1-12.5) Prothromb Time International Ratio 3.28ratio Sodium Level 141mEq/L (134-144) Potassium Level 4.5mEq/L (3.5-5.2) Chloride Level 104mEq/L (97-108) Carbon Dioxide Level 21mmol/L (18-29) Blood Urea Nitrogen 21mg/dL (8-27) Creatinine 1.27mg/dL (0.76-1.27) Estimat Glomerular Filtration Rate 58mL/min (>59) Glucose Level 97mg/dL (60-99) Calcium Level 9.2mg/dL (8.5-10.1) Magnesium Level 2.1mg/dL (1.6-2.6) Total Bilirubin 0.3mg/dL (0.0-1.2) Aspartate Amino Transf (AST/SGOT) 27U/L (0-50) Alanine Aminotransferase (ALT/SGPT) 14U/L (0-44) Alkaline Phosphatase 66U/L (25-160) Troponin T 0.032ug/L (0.0-0.011) Total Protein 7.2g/dL (6.4-8.4) Albumin 4.0g/dL (3.4-5.0) Hold Kaur Top Tube Received (Received) ECG Interpretation ECG Interpretation: Sinus rhythm rate 56 Prolonged OR interval LBBB Time: 17:55 Interpreted by: ED physician Normal ECG Interpretation: No change from prior ECGs (06/30/16) Re-Eval/Medical Decision Time of Eval: 17:34 Re-Evaluation/Progress Note: Pt rechecked. Informed pt of need for admission. Pt understands and agrees with plan for admission. All questions addressed. Consultation #1: Consulted With: Cardiology Call Returned at: 16:30 Repairer Wood Furniture: Agrees with eval, Agrees with plan Note: Case discussed with Dr. Steiner Consultation #2: Referral / Consult Name: Mack Vasquez MD Consulted With: Hospitalist Call Returned at: 17:34 Repairer [employer]: Will see patient, Agrees with eval, Agrees with plan, Accepts admit Consultation #3: Referral / Consult Name: Josué Kennedy MD Call Returned at: 18:04 Repairer [employer] Furn[employer]: Will see patient, Agrees with eval, Agrees with plan, Accepts admit Note: Case discussed with GI. Recommends replete PRBCs, do not reverse INR. Counseled Regarding: Diagnosis, Lab results, Need for admission Discharge & Departure Primary Impression: Symptomatic anemia Additional Impressions: Warfarin-induced coagulopathy GI bleed GI bleed type/associated pathology: unspecified gastrointestinal hemorrhage type Qualified Code: K92.2 - Gastrointestinal hemorrhage, unspecified Disposition: ADMITTED TO HOSPITAL Discharge Condition All VS Reviewed: Yes Condition: Stable Referrals: Edison Mott MD (PCP) Crit Care Except Billable Proc Time Spent: 30-74 minutes Services Performed: Patient management by me, Time spent at bedside, Reviewing test results, Reviewing imaging, Discussing patient care, Documentation in record Scribe Attestation Portions of this note were transcribed by Jaleel Warren. I, Dr. Juarez personally performed the history, physical exam and medical decision-making; I reviewed and confirmed the accuracy of the information in the transcribed note. Signed by Kristal Pittman, 08/05/16 - [id number] copies to: Edison Mott MD, Timothy S DO August 05, 2016 16:09 JALEEL WARREN August 05, 2016 16:16
[2016-08-05] MEDS ORDERED: Pantoprazole 4 mg/mL 10 mL Inj IVPUSH ONE ×2 (16:25→17:20)
--- NOTE | 2016-08-05 16:51 | DRSVH ---
PROCEDURE: X-RAY CHEST ONE VIEW, PORTABLE ([id number]) INDICATIONS: CISNEROS TECHNIQUE: One view of the chest was acquired. COMPARISON: [facility], CR, XR CHEST 1VW (PORTABLE), 06/28/2016, 16:23. [facility], CR, XR CHEST 1VW (PORTABLE), 01/07/2016, 13:40. [facility], CR, XR CHEST 2VW, , 9:53. FINDINGS: Surgical changes and devices: None. Lungs and pleura: No pleural effusions or pneumothorax. Lungs are clear. Mediastinum: Mediastinal contours appear normal. Heart size is normal. Bones and chest wall: No suspicious bony lesions. Overlying soft tissues appear unremarkable. IMPRESSION: No acute process. Dictated by: Eliana Harris M.D. on 08/05/2016 at 16:49 Approved by: Eliana Harris M.D. on 08/05/2016 at 16:49
[2016-08-05 17:07] LABS: INR 3.28 ratio
[2016-08-05 17:17] LABS: BASOPHILS % (AUTO) 0 % (0-3); EOSINOPHILS % (AUTO) 3 % (0-5); MONOCYTES % (AUTO) 17 % (4-12); Mean Corpuscular Hemoglobin 28.8 pg (27.0-35.0); Mean Corpuscular Volume 94.6 fL (81-100); NEUTROPHILS % (AUTO) 61 % (40-74); Platelet Count 280 bil/L (150-400)
[2016-08-05 17:25] LABS: TROPONIN T 0.032 ug/L (0.0-0.011)
[2016-08-05 17:26] LABS: Magnesium 2.1 mg/dL (1.6-2.6)
[2016-08-05] MEDS ORDERED: Alum-Mag Hydrox-Simeth 30 mL Suspension PO PRN ×2 (17:55→18:05)
[2016-08-05] MEDS ORDERED: Ondansetron 2 mg/mL 2 mL Inj IVPUSH PRN ×2 (17:55→18:05)
[2016-08-05] MEDS ORDERED: Polyethylene Glycol (PEG) 17 Gm Powder PO PRN (17:55)
[2016-08-05] MEDS ORDERED: Pantoprazole Inj 80 MG, Pharmacy To Mix 1 EA in 0.9% Sodium Chloride 80 ML IV ONE ×2 (18:00)
--- NOTE | 2016-08-05 18:01 | PCM.HPMED ---
Subjective Date of Service August 05, 2016 Primary Provider: Admitting Physician: Primary Care Physician: Edison Mott MD Attending Physician: Admit Status: From the Emergency Department Chief Complaint: Anemia History of Present Illness: Patient is a 81-year-old male with anticoagulated on Warfarin with a history of factor V leiden, pulmonary embolism, aortic stenosis s/p TAVR, HTN, CAD s/p stenting, diabetes mellitus type 2 and COPD referred to the ED from his waiter's office (Dr. Mcallister) for further evaluation and management of symptomatic anemia. Patient reports a history of dark stool two weeks ago for 7- 10 days that has since resolved. He denies a prior history of GI bleed and states that he does not take NSAIDs regularly, drinks alcohol only occassionally , does not smoke tobacco, and reports moderate amount of caffeine. He denies abdominal pain, distention, nausea, vomiting, hemorrhoids and states that he had an appendectomy as a child but otherwise no prior abdominal surgeries. He reports fatigue, generalized weakness, shortness of breath with exertion and denies chest pain, fever, chills, dizziness, change in vision or headache. In the ED, vitals 37.1, BP 130/56, pulse 57, RR 20 with SpO2 99% on room air. Labs: wbc 6.1, Hgb 6.9, Hct 22.7, plts 280, sodium 141, potassium 4.5, chloride 104, bicarb 21, BUN 21, creatinine 1.27, glucose 97, troponin 0.032. CXR negative for acute process. GI was consulted from the ED and will see the patient in the morning. Patient typed and crossed and 2units of pRBCs ordered. Admitted for management of anemia and further evaluation for possible upper GI bleed. Review of Systems: A comprehensive review of systems was conducted with the patient and found to be negative except as above in the History of Present Illness. Allergies Coded Allergies: No Known Allergies (Unverified , 06/28/16) Home Medications Amlodipine 10 MG PO DAILY Atorvastatin 10 MG PO HS Cephalexin 500 MG PO QID Clopidogrel 75 MG PO DAILY Hydralazine 100 MG PO TID Hydrochlorothiazide 25 MG PO DAILY Losartan Potassium 100 MG PO HS Metoprolol Succinate ER 25 MG PO QAM Pantoprazole DR 40 MG PO QAM Warfarin Sodium 7.5 MG PO DAILY except TH Warfarin Sodium 5 MG PO Q THURSDAY Acetaminophen 1,000 MG PO Q6H PRN For Pain Budesonide/Formoterol 160-4.5 mcg Inh 1 PUFF INHALATION BID PRN For Shortness of Breath Nitroglycerin SL 0.4 Mg Tab.subl 0.4 MG SL PRN For Chest Pain PMH Hx of recurrent pulmonary embolism (2011,2012), chronically anticoagulated on warfarin Factor V Leiden deficiency Aortic stenosis Hypertension Hyperlipidemia Coronary disease with LAD and RCA obstructive disease Type II diabetes COPD with moderate obstructive disease on pulmonary function tests Last pre-op cath w/stent to RCA 12/07/[address] Chan s/p valve replacement (TAVR) at [place] (bioprosthetic) complicated by pseudoaneurysm repair 01/03/2016 Social History Hx Alcohol Use: No Hx Substance Use: No Smoking Status: Former Smoker Living Arrangement: with Family Exam Vital Signs Vital Sign - Last Date Time Temp Pulse Resp B/P Pulse Ox O2 Delivery O2 Flow Rate FiO2 08/05/16 15:39 37.1 57 20 130/56 99 Exam General: No acute distress, well-developed, well-nourished, appropriately interactive HEENT: Normocephalic, atraumatic. External ears without defect. Pupils equal, round, and reactive to light and accommodation. Anicteric sclerae, dry oral mucosa, conjunctiva pallor present Neck: Supple with full range of motion. No jugular venous distension. No bruits. No lymphadenopathy or thyromegaly. Cardiovascular: Regular rate and rhythm, no murmurs, no rubs, or gallops appreciated Pulmonary: Clear to auscultation bilaterally with no crackles, wheezes, or rhonchi. Normal respiratory effort with no use of accessory muscles. Abdomen: Bowel tones present. Soft, nontender, nondistended. No hepatosplenomegaly or masses appreciated. Extremities: Trace edema ankles bilaterally with brawny discoloration consistent with venous staus changes. No clubbing, cyanosis, or lymphadenopathy appreciated. Skin: Normal temperature, poor turgor in neck, and texture; no rash, ulcers, or subcutaneous nodules appreciated. Neurological: Cranial nerves grossly intact. Normal muscle strength, tone, and bulk. Reflexes, coordination, and sensory function within normal limits. No known gait impairment. Psychiatric: Normal mood and affect. Alert and oriented to person, place, and time. Lab and Diagnostics Labs Laboratory Tests Test 08/05/16 16:41 White Blood Count 6.1th/mm3 (3.8-10.1) Red Blood Count 2.40mil/mm3 (4.40-5.80) Hemoglobin 6.9g/dL (13.8-17.2) Hematocrit 22.7% (41.0-50.0) Mean Corpuscular Volume 94.6fL (81-100) Mean Corpuscular Hemoglobin 28.8pg (27.0-35.0) Mean Corpuscular Hemoglobin Concent 30.4% (32.0-37.0) Red Cell Distribution Width 17.0% (12.3-15.4) Platelet Count 280bil/L (150-400) Neutrophils (%) (Auto) 61% (40-74) Lymphocytes (%) (Auto) 19% (14-46) Monocytes (%) (Auto) 17% (4-12) Eosinophils (%) (Auto) 3% (0-5) Basophils (%) (Auto) 0% (0-3) Prothrombin Time 36.0sec (8.1-12.5) Prothromb Time International Ratio 3.28ratio Sodium Level 141mEq/L (134-144) Potassium Level 4.5mEq/L (3.5-5.2) Chloride Level 104mEq/L (97-108) Carbon Dioxide Level 21mmol/L (18-29) Blood Urea Nitrogen 21mg/dL (8-27) Creatinine 1.27mg/dL (0.76-1.27) Estimat Glomerular Filtration Rate 58mL/min (>59) Glucose Level 97mg/dL (60-99) Calcium Level 9.2mg/dL (8.5-10.1) Magnesium Level 2.1mg/dL (1.6-2.6) Total Bilirubin 0.3mg/dL (0.0-1.2) Aspartate Amino Transf (AST/SGOT) 27U/L (0-50) Alanine Aminotransferase (ALT/SGPT) 14U/L (0-44) Alkaline Phosphatase 66U/L (25-160) Troponin T 0.032ug/L (0.0-0.011) Total Protein 7.2g/dL (6.4-8.4) Albumin 4.0g/dL (3.4-5.0) Hold Kaur Top Tube Received (Received) Result Diagram: 08/05/16 1641 08/05/16 1641 X-Rays, CTs and MRIs X-RAY CHEST ONE VIEW, PORTABLE IMPRESSION: No acute process. Dictated by: Eliana Harris M.D. on 08/05/2016 at 16:49 Approved by: Eliana Harris M.D. on 08/05/2016 at 16:49 Assessment & Plan 81-year-old male anticoagulated on Warfarin with a history of factor V leiden, pulmonary embolism, aortic stenosis s/p TAVR, CAD s/p stenting, diabetes mellitus type 2 and COPD referred to the ED from his waiter's office (Dr. Mcallister) for further evaluation and management of smanagement of anemia and further evaluation for possible upper GI bleed. Hospital day #1. 1. Anemia, unknown chronicity. Present on admission. Active -Etiology uncertain, possibly secondary to upper GI bleed. Patient experiencing symptoms of anemia and reports a week long history of melena approximately 2 weeks ago. -Hemodynamically stable, Hb 6.9/Hct 22.7 -Transfuse 2 units of pRBCs -Trend H/H q8h 2. Possible GI bleed, present on admission. Active -Patient chronically anticoagulated on Warfarin. History of melena two weeks ago for 7-10days. -H/H 6.9/22.7 on admission. INR is sligthly supratherapeutic at 3.23. -GI consulted from the ED and following. Possible endoscopy tomorrow. -Hold home warfarin this evening, hold FFP reversal of INR, due to patient's significant cardiac history and INR only slightly elevated. -Trend H/H and repeat INR in the morning. -NPO after midnight for possible procedure 3. History of pulmonary embolism, present on admission. Ongoing -Patient with factor V leiden and chronically anticoagulated on Warfarin. -INR supratherapeutic on admission, 3.23. -Will hold evening dose of Warfarin, repeat INR in morning 4. Elevated troponin, chronic. Present on admission. Ongoing -Patient denies chest pain and via chart review, troponin appears at baseline. -Nitroglycerin 0.4 SL PRN chest pain -Continue home blood pressure medications 5. Chronic hypertension, present on admission. Ongoing -Continue home medications 6. Chronic Hypertension, present on admission. Ongoing -Continue home 7. Chronic Hyperlipidemia, present on admission. Ongoing -Continue home statin 8. History of CAD s/p stents, present on admission. -Continue anti platelet therapy 9. Diabetes mellitus, type 2. chronic. present on admission. Ongoing. -Correctional insulin lispro ordered. 10. COPD, chronic. present on admission. Ongoing -Continue home inhalers PRN: Acetaminophen-fever/headache/mild/moderate pain Antiemetics, as needed Bowel regimen, as needed. Disposition: Patient admitted under inpatient status with expected length of stay > 2 midnights for severity of present symptoms, complexities of treatment plan and risk for adverse event. Pain Evaluation: Adequate Pain Control VTE Prophylaxis Indicated: Meets Criteria for Anticoag Therapy VTE Prophylaxis: Theraputic Anticoag with Warfarin Resuscitation Status: CPR: Attempt Resuscitation Attending Statement The patient was seen and examined together with Dr. Acosta on 08/05/2016 and I agree with the history, exam and plan as outlined in the note above. . copies to: Edison Mott MD, Courtney M DO August 05, 2016 18:01 Mack Vasquez MD August 06, 2016 07:39 CODE STATUS: FEN: IVF: GI Prophylaxis: DVT Prophylaxis: Sub-q Heparin, 5,000units Q8h PRN: Acetaminophen-fever/headache/mild/moderate pain Antiemetics, as needed Bowel regimen, as needed. Disposition: Patient admitted under inpatient status with expected length of stay > 2 midnights for severity of present symptoms, complexities of treatment plan and risk for adverse event. Pain Evaluation: Adequate Pain Control VTE Prophylaxis Indicated: Meets Criteria for Anticoag Therapy VTE Prophylaxis: Theraputic Anticoag with Warfarin Resuscitation Status: CPR: Attempt Resuscitation Misa Acosta DO August 05, 2016 18:01 CODE STATUS: FEN: IVF: GI Prophylaxis: DVT Prophylaxis: Sub-q Heparin, 5,000units Q8h PRN: Acetaminophen-fever/headache/mild/moderate pain Antiemetics, as needed Bowel regimen, as needed. Disposition: Patient admitted under inpatient status with expected length of stay > 2 midnights for severity of present symptoms, complexities of treatment plan and risk for adverse event. Pain Evaluation: Adequate Pain Control VTE Prophylaxis Indicated: Meets Criteria for Anticoag Therapy VTE Prophylaxis: Theraputic Anticoag with Warfarin Resuscitation Status: CPR: Attempt Resuscitation Misa Acosta DO August 05, 2016 18:01
[2016-08-05] MEDS ORDERED: WARF5TAB7 PO (18:59)
[2016-08-05] MEDS ORDERED: WARF7.5T4 PO (18:59)
[2016-08-05] MEDS ORDERED: Fluticasone-Salmererol 250-50 Inhaler INHALATION PRN (20:30)
--- NOTE | 2016-08-05 22:09 | PCM.CONPHA ---
Assessment/Plan Assessment/Plan ANTICOAGULATION MANAGEMENT BY PHARMACY -INDICATION: HX OF PE -HOME DOSE: 7.5 MG MON,WED,FRI,SAT,SUN 5 MG FRI,THUR -CONCURRENT ANTICOAGULATION: NONE -CRCL: 1.27 ML/MIN -COAG TRENDS: [facility] Date 1-August INR 3.28 INR change ~ Warf Dose HOLD -[id number] SCORE: 3 PLAN: PATIENT HAS A POSSIBLE UPPER GI BLEED WITH A HX OF MELENA IN STOOLS 2 WEEKS AGO, GI CONSULT IN THE AM FOR SCOPE, HOLD WARFARIN FOR NOW Pharmacy appreciates consult and will continue to monitor. THANKS! Nataliia Marina PharmD August 05, 2016 22:09
--- NOTE | 2016-08-05 23:40 | NUR ---
Handoff Report Patient stable and no distress noted, admission completed, report given to Guadalupe WALKER, all questions answered, patient resting in bed, 1st unit PRBC's infusing.
[2016-08-06] VITALS (13 sets, daily range): BP systolic 121–153; BP diastolic 43–65; PULSE 51–78; RESP 16–20; O2SAT 95–96
[2016-08-06 04:39] LABS: BASOPHILS % (AUTO) 0.5 % (0-3); EOSINOPHILS % (AUTO) 3.4 % (0-5); Mean Corpuscular Volume 91.7 fL (81-100); NEUTROPHILS % (AUTO) 59.4 % (40-74); Platelet Count 251 bil/L (150-400)
--- NOTE | 2016-08-06 04:52 | NUR ---
BLOOD ADMINISTRATION Patient received 2 units PRBCs over night without issue. Hemoglobin appears to have stabilized. C/O discomfort in bed, resolved with sitting in chair for sometime. Currently resting comfortably. Remains SB-SR.
[2016-08-06 04:58] LABS: INR 2.89 ratio
[2016-08-06] MEDS: MeTOProlol XL 25 mg ER24 Tablet PO SCH (08:16)
[2016-08-06] MEDS: 0.9% Sodium Chloride 250 ML IV SCH (08:45)
--- NOTE | 2016-08-06 10:06 | PCM.CHPMED ---
Subjective Date of Service: August 06, 2016 Provider requesting consult: Misa Acosta DO Primary Physician: Admitting Physician: Mack Vasquez MD Primary Care Physician: Edison Mott MD Attending Physician: Josué Kennedy MD Chief Complaint: Chief Complaint: Anemia/low hgb History of Present Illness: 81-year-old gentleman currently on warfarin due to factor V laden and history of pulmonary embolism, on Plavix due to coronary stenting and TAVR December 2015, who also has COPD and diabetes who was sent to the emergency department from Dr. Hernandez's office due to a hemoglobin of 6.9 and reported symptomatic anemia. Patient reports that about a month ago he started having dark tarry stools that lasted for approximately 2 weeks before stopping. The last 2 weeks he has been free of hematochezia and melena and denies ongoing dizziness, lightheadedness, chest pain, shortness of breath, abdominal pain, nausea/ vomiting or epigastric pain, but does state that he has been tired and cold for the last few weeks. On admission the patient's hemoglobin 6.9 with a hematocrit of 22.7. No leukocytosis or thrombocytopenia. Creatinine is high normal and there is no hyperglycemia. Troponin was mildly elevated although this patient does have chronic troponin elevations; repeat troponin increased to 0.05. Patient continues to the chest pain. Patient was typed and crossed for 2 units of PRBCs approximately hemoglobin to 8.1. Additional transfusions are pending. We are asked to see this patient in consult due to probability of upper GI bleed and need for upper endoscopy. Patient continues to deny symptoms as noted above. He is still on warfarin and Plavix and a supratherapeutic. Of note the patient is taking Protonix 40 mg by mouth daily as an outpatient. Patient also has not had a colonoscopy in cluster 10 years even though he was instructed by Dr. Mott to undergo colonoscopy approximately 4 years ago. Review of Systems: See history of present illness PMH Past Medical History Hx of recurrent pulmonary embolism (2011,2012), chronically anticoagulated on warfarin Factor V Leiden deficiency Aortic stenosis Hypertension Hyperlipidemia Coronary disease with LAD and RCA obstructive disease Type II diabetes COPD with moderate obstructive disease on pulmonary function tests Last pre-op cath w/stent to RCA 12/07/[address] Chan s/p valve replacement (TAVR) at [place] (bioprosthetic) complicated by pseudoaneurysm repair 01/03/2016 Hx Any Other Health Problems?: YesHx Diabetes: Yes Surgical History TAVR Appendectomy in the 1940s Spinal surgery in the 1960s Home Medications Amlodipine 10 MG PO DAILY Atorvastatin 10 MG PO HS Clopidogrel 75 MG PO DAILY Hydralazine 100 MG PO TID Hydrochlorothiazide 25 MG PO DAILY Losartan Potassium 100 MG PO HS Metoprolol Succinate ER 25 MG PO QAM Pantoprazole DR 40 MG PO QAM Warfarin Sodium 7.5 MG PO DAILY except Warfarin Sodium 5 MG PO Q FRIDAY Acetaminophen 1,000 MG PO Q6H PRN For Pain Budesonide/Formoterol 160-4.5 mcg Inh 1 PUFF INHALATION BID PRN For Shortness of Breath Nitroglycerin SL 0.4 Mg Tab.subl 0.4 MG SL PRN For Chest Pain Allergies: Coded Allergies: No Known Allergies (Unverified , 06/28/16) Family History Family History No reported history of colon cancer Social History Hx Alcohol Use: NoHx Substance Use: No Smoking Status: Former Smoker ([id number]; cigar ) Living Arrangement: with Family Exam Vital Signs Vital Sign - Last Date Time Temp Pulse Resp B/P Pulse Ox O2 Delivery O2 Flow Rate FiO2 08/06/16 08:14 37.1 58 20 141/60 96 Room Air Intake and Output 08/05/16 08/05/16 08/06/16 Cumulative From/Thru 15:00 23:00 07:00 08/05/16 15:39 - 08/06/16 06:17 Intake Total 1150 ml 1150 ml Output Total 1150 ml 1150 ml Balance 0 ml 0 ml Intake Oral 400 ml 400 ml IV Total 50 ml 50 ml Packed Cells 700 ml 700 ml Output Urine Total 1150 ml 1150 ml # Voids 3 3 Additional Information: General: Patient awake alert in no acute distress HEENT; conjunctiva are pale; oropharynx is clear; membranes moist; PERRLA Cardio: 2 out of 4 systolic murmur heard over the right substernal border in the second intercostal space, no radiation noted; regular rate and rhythm Respiratory: Decreased sounds throughout but no wheezes or crackles Abdomen: Obese, difficult to palpate, no noted splenomegaly; mild hepatomegaly with percussion and palpitation of liver 2 cm below the right rib Extremities: Mild edema, pulses intact throughout Psych: Appropriate affect Neuro: Sensation intact throughout Lab and Diagnostics Result Diagram: 08/06/1642908/06/16429 X-Rays, CTs and MRIs Chest x-ray IMPRESSION: No acute process. Dictated by: Eliana Harris M.D. on 08/05/2016 at 16:49 Assessment & Plan Assessment 81-year-old gentleman supratherapeutic on warfarin as well as taking Plavix due to stenting and trans-aortic valve replacement in December 2015 who presents with a recent history of melena and symptomatic anemia without chest pain. Patient was transfused multiple units of blood and will receive additional blood due to history of CAD and stenting. Goal hemoglobin to be 8 according to the FOCUS trial. Problem list: Probable upper GI bleed Blood loss anemia Elevated troponin Diabetes mellitus type 2 CAD COPD Plan: This patient has had symptomatic anemia now for a month ago ahead and perform an upper endoscopy. Of major concern is the risk for bleeding as the patient supratherapeutic on warfarin, as well as taking Plavix. However discontinuation of warfarin could be detrimental as the patient has a clotting disorder with history of multiple DVT's and PE's. Current INR is < 3.5 and patient will be scheduled for endoscopy this afternoon. If no sign of bleeding is identified, recommend colonoscopy. I saw and examined this pt with Dr Mckeon and agree with above. Thank you for allowing participate in the care of this patient Problems: Pain Evaluation: Adequate Pain Control VTE Prophylaxis Indicated: Meets Criteria for Anticoag Therapy VTE Prophylaxis: Theraputic Anticoag with Warfarin Resuscitation Status: CPR: Attempt Resuscitation Milad Back DO August 06, 2016 10:06 Josué Kennedy MD August 08, 2016 07:47
--- NOTE | 2016-08-06 10:55 | NUR ---
Social Work Note - Initial Assessment: D/A: See Initial Assessment. The Pt is a 81 y/o male that was admitted for symptomatic anemia, warfarin induced coagulopathy. The Pt's PCP is MD Edison Mott and his primary insurance is Medicare with a [employer] supplement, Pt reports [facility] L[facility] and no VA benefits. EMR reviewed. RAFA met with the Pt to explain role and discuss discharge planning. SW telephone number written on [employer] board. The Pt lives independently with his and one granddaughter in [place]. The Pt reports that his Advanced Directive is home, paperwork requested. The Pt stated that he continues to drive, uses a walking stick, and has no HH/SNF history. The Pt reports that his daughter and two granddaughters help him and his with house cleaning needs, as needed. GI following, scope to be completed this afternoon. The Pt denies any needs at this time, SW to follow if needs arise. P: The Pt is not medically stable for discharge, likely tomorrow as per rounds with family providing POV transportation. The Pt denies any needs at this time, SW to follow if needs arise. VEGA Martinez Social Work Professor Addendum: 08/06/16 at 1102 by ZACH WALTERS SS Amended: Links added.
[2016-08-06] MEDS: Pantoprazole 4 mg/mL 10 mL Inj IVPUSH SCH ×2 (11:54→17:39)
--- NOTE | 2016-08-06 12:19 | NUR ---
Case Management: Clarification of patient status: inpatient per MD order on 08/06/16. Roxana Wood RN
--- NOTE | 2016-08-06 14:25 | PCM.PHAPRO ---
Progress Date of Service: August 06, 2016 Anemia/low hgb Warfarin management per pharmacy Indication: Hx of PE INR goal: 2-3 (will aim for 2.0-2.5) Home warfarin dose: 5 mg on , and 7.5 mg on all other days of the week. Pertinent info: - "History of factor V leiden, pulmonary embolism, aortic stenosis s/p TAVR" per H&P. - "This patient has had symptomatic anemia now for a month ago ahead and perform an upper endoscopy. Of major concern is the risk for bleeding as the patient supratherapeutic on warfarin, as well as taking Plavix. However discontinuation of warfarin could be detrimental as the patient has a clotting disorder with history of multiple DVT's and PE's. Current INR is < 3.5 and patient will be scheduled for endoscopy this afternoon." per hospitalist note today. Date -August 06-August INR 3.28 2.89 INR change -0.39 Warf Dose HOLD XXXXX INR is therapeutic and trending down due to held dose yesterday. Patient would normally receive 7.5 g on Tuesdays but will order smaller dose and aim for lower end of therapeutic range due to bleeding. Give warfarin 6 mg PO this evening at 1700. Serial INRs have been ordered. Pharmacy to continue to follow and dose warfarin daily. Thank you, Kianna Triana Pharmacist Kianna Triana August 06, 2016 14:25
--- NOTE | 2016-08-06 15:30 | NUR ---
blood transfusion Pt Hg 8.1, hct 26.5 this AM. pt received 1unit of prbc per md's order. Education provided to pt regarding transfusion procedure. Pt verbalized understanding. Pt tolerated transfusion well with no adverse effects. Transfusion Vitals charted.
--- NOTE | 2016-08-06 15:52 | PCM.HPANE ---
Patient Data Surgeon Admitting Provider:Mack Vasquez MD Attending Provider:Josué Kennedy MD Primary Care Physician:Edison Mott MD Other Provider: Reason for Visit Symptomatic Anemia,Warfarin Induced Coaculopathy Ht/WT & BMI Height (Feet): 5 Height (Inches): 10.00 Weight (Kilograms): 111.100 Body Mass Index 35.13 Allergies Coded Allergies: No Known Allergies (Unverified , 06/28/16) Past Anesthesia History Anesthesia History: Denies:: Anesthesia Reactions Diabetes History Hx Diabetes?: Yes MRSA MRSA: No Medications Hypertension Medication: Yes Home Meds Incl Beta Myrna: Yes Date Beta Myrna Taken: August 06, 2016 Time Beta Myrna Taken: 08:30 Active Scripts Amlodipine 5 Mg Zcjekx21 Mg PO DAILY #30 TABLET Ref 3 Prov:Jarek Olmos MD 07/02/16 Clopidogrel 75 Mg Zzddhv95 Mg PO DAILY #90 TABLET Ref 3 Prov:Mack Schultz PA-C 12/08/15 Reported Medications Warfarin Sodium 5 Mg Tablet5 Mg PO FRI/ 30 Days Ref 0 08/05/16 Warfarin Sodium 7.5 Mg Tablet7.5 Mg PO DAILY EXCEPT FRI/FRI 30 Days Ref 0 08/05/[address] 40 Mg Tablet.dr40 Mg PO QAM Ref 0 06/28/16 Budesonide/Formoterol 160-4.5 mcg Inh (Symbicort 160-4.5 mcg Inh)120 Puff Inhaler1 Puff INHALATION BID PRN For Shortness of Breath 06/28/16 Metoprolol Succinate ER 25 Mg Tab.er.24h25 Mg PO QAM 06/28/16 Losartan Potassium 100 Mg Ubnscy333 Mg PO HS 06/28/16 Hydralazine 100 Mg Cwoeqq516 Mg PO TID 06/28/16 Atorvastatin (Lipitor)10 Mg Tab10 Mg PO HS 06/28/16 Acetaminophen 500 Mg Tablet1,000 Mg PO Q6H PRN For Pain 09/05/15 Discontinued Reported Medications Hydrochlorothiazide 25 Mg Mwjedo81 Mg PO DAILY 30 Days Ref 0 06/28/16 Warfarin Sodium 5 Mg Tablet5 Mg PO Q Friday06/28/16 Warfarin Sodium 5 Mg Tablet7.5 Mg PO DAILY except 08/25/15 Discontinued Scripts Cephalexin 500 Mg [id number] Mg PO QID #20 CAPSULE Prov:Jarek Olmos MD 07/02/16 Nitroglycerin SL (Nitrostat)0.4 Mg Tab.subl0.4 Mg SL PRN PRN For Chest Pain #30 Ref 2 1 tab under your tongue for chest pain. May repeat up to 3 tabs if pain continues. Call 911 if pain does not resolve. Prov:Marion,Mack Waddell PA-C 12/08/15 History History of ENT Problems?: Yes HEENT History: Positive for:: Cataracts (Left Apr 2015, Right eye 20 years ago ) Denies:: Abnormal Airway Difficult Intubation Dysphagia Glaucoma Hearing Problem Sinus Problem TMJ Denture Type: None Teeth Condition: Within Normal Limits Hx of Heart Problems?: Yes Cardiovascular History: Positive for:: Cardiac Surgery (Heart cath with stents , TAVR) Edema (chronic LE edema) Heart Murmur () Hypertension Irregular Heartbeat (LBBB) Denies:: Chest Pain Congestive Heart Failure Hx of Respiratory Problem?: Yes Respiratory History: Positive for:: COPD Dyspnea Denies:: Asthma Chest Surgery Pneumonia Tuberculosis Hx Neurologic Problems?: No Hx of GI Problems?: Yes Hx of Problems?: No Male Hx: Denies:: Prostate Problems Scrotal Mass Testicular Surgery Hx Musculoskeletal Problems?: Yes Musculoskeletal History: Positive for:: Back Injury (lower back surgery) Denies:: Joint Replacement Hx of Psycho/Social Problems?: No Hx Surgeries?: Yes (APPY,STENTS,LOWER BACK,) Hx Any Other Health Problems?: Yes Other History: Positive for:: Hospitalization Denies:: Cancer Thyroid Disease History Blood Transfusions: Denies:: Blood Transfusions Hx Diabetes: Yes Hx Alcohol Use: NoHx Substance Use: No Smoking Status: Former Smoker ([id number]; cigar ) Have You Smoked inLast 12 mo: Yes (2 CIGARS A DAY) Stop/Bang Treated for Sleep Apnea?: No Do You Have a CPAP Machine?: No S-Snoring: Do You Snore Loudly: Yes T-Tired: feel tired, fatigued: No O-Obsered: Observed not breath: No P-Blood Pressure: treated: Yes B- Body Mass Index > 35 kg/m2: Yes A- Age over 50: Yes N- Neck Large Circumference: Yes G- Gender Male: Yes VIRI Total Score: 6 VIRI Risk Assessment: High Risk, =/>3 Yes Risk Assessment Category Category 1A: Patient has history of documented sleep apnea, and HAS NOT received any narcotic, sedative or anesthesia administration during this stay. Category 1B: Patient has history of documented sleep apnea, and HAS received any narcotic , sedative or anesthesia administration during this stay Category 2: Patient has SUSPECTED Obstructive Sleep Apnea, and HAS received any narcotic , sedative or anesthesia administration during this stay. Category 3: Patient has SUSPECTED Obstructive Sleep Apnea and HAS NOT received narcotic, sedative or anesthesia administration during this stay. Category 4: Outpatient in Procedural Areas with known sleep apnea or who screen positive for High Risk via the STOP/BANG questionnaire. Exam Exam Vital Signs Vital Signs Date Time Temp Pulse Resp B/P Pulse Ox O2 Delivery O2 Flow Rate FiO2 08/06/16 11:48 37.1 51 18 135/57 08/06/16 11:25 37.0 52 18 128/52 08/06/16 10:33 59 08/06/16 08:14 37.1 58 20 141/60 96 Room Air General Appearance: Alert, Oriented X3, Cooperative HEENT/AIRWAY: MP 2 Lungs: Clear to Auscultation Heart: Exam Unremarkable Meds/Labs/Diagnostics Admission Meds Current Medications Pantoprazole 80 mg 80 mg STAT ONCE IVPUSH Last administered on 08/05/16 17:45 ; Start 08/05/16 at 16:25; Stop 08/05/16 at 16:27; Status DC Pantoprazole/ Miscellaneous/ Sodium Chloride (Protonix Inj/ Pharmacy To Mix/ Normal Saline) 100 ml @ 10 mls/hr ONCE ONCE IV Last administered on 08/05/16 18:45; Start 08/05/16 at 18:00; Stop 08/06/16 at 03:59; Status DC Amlodipine Besylate (Norvasc) 10 mg DAILY PO Last administered on 08/06/16 08: 16; Start 08/06/16 at 08:30 Atorvastatin Calcium (Lipitor) 10 mg HS PO Last administered on 08/05/16 23:52 ; Start 08/05/16 at 21:00 Clopidogrel Bisulfate (Plavix) 75 mg DAILY PO Last administered on 08/06/16 08: 16; Start 08/06/16 at 08:30 Losartan Potassium (Cozaar) 100 mg HS PO Last administered on 08/05/16 23:52; Start 08/05/16 at 21:00 Metoprolol Succinate (Toprol XL) 25 mg DAILY PO Last administered on 08/06/16 08:16; Start 08/06/16 at 08:30 Hydralazine HCl 100 mg 100 mg TID PO Last administered on 08/06/16 08:17; Start 08/05/16 at 20:30 Sodium Chloride (Normal Saline) 250 ml @ 10 mls/hr Q24H IV Last administered on 08/06/16 08:45; Start 08/06/16 at 08:45 Pantoprazole (Protonix Inj) 40 mg BIDAC IVPUSH Last administered on 08/06/16 11 :54; Start 08/06/16 at 10:45 Labs Test 08/05/16 16:41 08/05/16 19:09 08/06/16 04:30 08/06/16 10:35 Magnesium Level 2.1mg/dL (1.6-2.6) Hold Kaur Top Tube Received (Received) Hold Urine Received (Received) White Blood Count 5.8th/mm3 (3.8-10.1) Red Blood Count 2.89mil/mm3 (4.40-5.80) Hemoglobin 8.1g/dL (13.8-17.2) Hematocrit 26.5% (41.0-50.0) Mean Corpuscular Volume 91.7fL (81-100) Mean Corpuscular Hemoglobin 28.0pg (27.0-35.0) Mean Corpuscular Hemoglobin Concent 30.6% (32.0-37.0) Red Cell Distribution Width 17.9% (12.3-15.4) Platelet Count 251bil/L (150-400) Neutrophils (%) (Auto) 59.4% (40-74) Lymphocytes (%) (Auto) 20.5% (14-46) Monocytes (%) (Auto) 16.0% (4-12) Eosinophils (%) (Auto) 3.4% (0-5) Basophils (%) (Auto) 0.5% (0-3) Prothrombin Time 31.6sec (8.1-12.5) Prothromb Time International Ratio 2.89ratio Sodium Level 137mEq/L (134-144) Potassium Level 3.9mEq/L (3.5-5.2) Chloride Level 102mEq/L (97-108) Carbon Dioxide Level 21mmol/L (18-29) Blood Urea Nitrogen 19mg/dL (8-27) Creatinine 1.25mg/dL (0.76-1.27) Estimat Glomerular Filtration Rate 59mL/min (>59) Glucose Level 117mg/dL (60-99) Calcium Level 9.0mg/dL (8.5-10.1) Total Bilirubin 0.8mg/dL (0.0-1.2) Aspartate Amino Transf (AST/SGOT) 15U/L (0-50) Alanine Aminotransferase (ALT/SGPT) 13U/L (0-44) Alkaline Phosphatase 69U/L (25-160) Total Protein 6.8g/dL (6.4-8.4) Albumin 3.6g/dL (3.4-5.0) Troponin T 0.045ug/L (0.0-0.011) Plan Impression Patient chart reviewed, patient interviewed and anesthestic plan with risks, benefits, and alternatives discussed, and informed consent obtained. ASA Physical Status: ASA3 Severe Disease Anesthetic Plan: GA Bene/Risks/Altern/Consents: Yes HP Complete Prior to Induction: Yes Thomas Mendieta DO August 06, 2016 13:24
[2016-08-06] MEDS: Lactated Ringer's 1,000 ML IV ONE ×2 (16:02→16:19)
--- NOTE | 2016-08-06 16:22 | PCM.ENDEGD ---
EGD Date of Service: August 06, 2016 Physician Josué Kennedy MD Pre Procedure Diagnosis: anemia Post Procedure Dx & Findings: avm and esophagitis Procedure Esophagogastroduodenoscopy PROCEDURE IN DETAIL: After proper sedation, Olympus video endoscope was inserted into patient's mouth and esophagus was successfully intubated. Scope introduced esophagus. Esophagus showed normal shiny whitish mucosa consistent with squamous cell component. Z line was not intact at 45 cm from the incisors. Irregularity noted. INR is 3 and patients on Plavix. Therefore biopsy not taken. Scope further advanced to the stomach. Stomach showed normal shiny mucosa with normal appearing rugae folds without any ulcer mass erosion. Cardia fundus body antrum pylorus were all visualized. Retroflexion was done. Stomach was easily inflated and deflatable using air. Scope further events to the distal duodenum. Duodenum revealed normal villous structures with normal appearing folds without any mass ulcer erosion. The fourth portion of duodenum and maybe up to the proximal jejunum, I saw two sub mm AVM which was not bleeding. Impression Two avm < 1 mm in size. No bleeding noted. Most likely the cause of bleeding is small bowel avm's. He robably has more avm distally in the small bowel. However , right sided colon lesion is also in the differential diagnosis. Recommendation Consider colonoscopy. However if the patient does not want to proceed with colonoscopy, we should think about whether both Coumadin and Plavix can be can continue safely. However was benefits needs to be assessed carefully. We will deferred the assessment to the primary care service. Presedation Assessment Risks and Benefits Informed consent was obtained from the patient after all risks and benefits including but not limited to drug reaction, infection, pain, bleeding, perforation, as well as alternatives were discussed. Patient monitoring Continuous pulse oximetry, cardiac monitoring, blood pressure monitoring, IV access, and oxygen at 2L per nasal cannula. Complications There were no periprocedural complications identified. Post Procedure Plan Post Procedure Recommendations 1. Restrict activities today. 2. Resume normal activities in the morning. 3. Resume medications. 4. GERD behavioral modification: - Avoid fatty, acidic, spicy, large meals - Do not lie down after meals - Do not eat or drink anything for at least 2 1/2 hours before going to bed at night - Discontinue tobacco and alcohol - Decrease or avoid caffeine - Avoid chocolate and mints - Decrease weight - Avoid aspirin and non steroidal anti-inflammatory agents (NSAID) such as Aleve, Advil, Mobic, Naproxen, Ibuprofen, etc 5. Add proton pump inhibitor. Take 30 minutes before 1st meal of the day. 6. Patient informed of normal post procedure side effects as bloating, drowsiness, blood streaking in the stool 7. If gastric biopsy reveal H.pylori, continue with appropriate treatment 8. If small bowel biopsy reveals celiac, continue with appropriate treatment 9. Please don't hesitate to call me with any questions Josué Kennedy MD August 06, 2016 16:22
--- NOTE | 2016-08-06 16:38 | PCM.ANEP1 ---
Post Anesthesia Phase 1 PACU Phase 1 Assessment Date of Service: August 06, 2016 Vital Signs Vital Signs Date Time Temp Pulse Resp B/P Pulse Ox O2 Delivery O2 Flow Rate FiO2 08/06/16 16:31 55 16 121/43 95 Room Air 08/06/16 16:26 57 16 121/60 95 Room Air 08/06/16 15:28 36.8 70 16 153/65 96 Room Air 08/06/16 14:44 36.9 78 18 142/59 08/06/16 11:48 37.1 51 18 135/57 08/06/16 11:25 37.0 52 18 128/52 08/06/16 10:33 59 Anesthetic Administered: GA Level of Alertness: Awake, talking FISHER's with Equal Strength: Yes Pain: No Nausea or Vomiting: No Cardiovascular Function and Hy: Yes Oxygen Delivery: Room Air Lungs: Clear to Auscultation Dermatome Level: Full Sensation Complications: No Follow up Care: No Patient Instructions Provided: Yes Thomas Mendieta DO August 06, 2016 16:38
--- NOTE | 2016-08-06 16:40 | NUR ---
Case Management: IMM already in chart, signed on 08/05/16. May Jimenez RN
--- NOTE | 2016-08-06 17:30 | NUR ---
Post op patient patient transferred to [facility] fro OR. Report received from disaster recovery consultant. Baseline vitals charted. Pt has D5 NS at 60ml/hr and Insulin regular infusing at 2units/hr. Alexandre patent draining dark pink urine. Pt denies pain at this time. Dressings to abdomen dry, intact. Bowel sound hypoactive in all four quadrant. Assessment performed and documented. Report given to oncsuzanne RN. Addendum: 08/07/16 at 1352 by NEY HUMPHREY RN wrong patient
[2016-08-06] MEDS ORDERED: PEG/Electrolytes 4,000 mL Solution PO ONE (18:00)
--- NOTE | 2016-08-06 19:34 | PCM.PNMED ---
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 Mcallister) for further evaluation and management of smanagement of anemia and further evaluation for possible upper GI bleed. Hospital day #2. Transfused 2units of pRBCs, H/H stable. No acute events. Patient is doing well this morning and without complaint. He reports improvement in fatigue and denies chest pain, shortness of breath, dizziness, abdominal pain, nausea, vomiting, bloody or dark stool. Exam Vital Signs Vital Sign - Last Date Time Temp Pulse Resp B/P Pulse Ox O2 Delivery O2 Flow Rate FiO2 08/06/16 03:49 36.9 58 18 134/60 08/05/16 19:01 97 Room Air Intake and Output 08/05/16 08/05/16 08/06/16 Cumulative From/Thru 15:00 23:00 07:00 08/05/16 15:39 - 08/06/16 06:17 Intake Total 1150 ml 1150 ml Output Total 1150 ml 1150 ml Balance 0 ml 0 ml Intake Oral 400 ml 400 ml IV Total 50 ml 50 ml Packed Cells 700 ml 700 ml Output Urine Total 1150 ml 1150 ml # Voids 3 3 Exam General: No acute distress, well-developed, well-nourished, appropriately interactive HEENT: Normocephalic, atraumatic. External ears without defect. Pupils equal, round, and reactive to light and accommodation. Anicteric sclerae, dry oral mucosa, conjunctiva pallor present Neck: Supple with full range of motion. No jugular venous distension. No bruits. No lymphadenopathy or thyromegaly. Cardiovascular: Regular rate and rhythm, no murmurs, no rubs, or gallops appreciated Pulmonary: Clear to auscultation bilaterally with no crackles, wheezes, or rhonchi. Normal respiratory effort with no use of accessory muscles. Abdomen: Bowel tones present. Soft, nontender, nondistended. No hepatosplenomegaly or masses appreciated. Extremities: Trace edema ankles bilaterally with brawny discoloration consistent with venous staus changes. No clubbing, cyanosis, or lymphadenopathy appreciated. Skin: Normal temperature, poor turgor in neck, and texture; no rash, ulcers, or subcutaneous nodules appreciated. Neurological: Cranial nerves grossly intact. Normal muscle strength, tone, and bulk. Reflexes, coordination, and sensory function within normal limits. No known gait impairment. Psychiatric: Normal mood and affect. Alert and oriented to person, place, and time. IVs and Medications Medications Reviewed: Medications were reviewed in detail Lab and Diagnostics Laboratory Tests Test 08/06/16 10:35 08/06/16 18:16 08/07/16 04:20 Troponin T 0.045ug/L (0.0-0.011) Hemoglobin 9.4g/dL (13.8-17.2) 10.1g/dL (13.8-17.2) Hematocrit 30.1% (41.0-50.0) 31.2% (41.0-50.0) White Blood Count 5.8th/mm3 (3.8-10.1) Red Blood Count 3.45mil/mm3 (4.40-5.80) Mean Corpuscular Volume 90.4fL (81-100) Mean Corpuscular Hemoglobin 29.3pg (27.0-35.0) Mean Corpuscular Hemoglobin Concent 32.4% (32.0-37.0) Red Cell Distribution Width 17.5% (12.3-15.4) Platelet Count 259bil/L (150-400) Neutrophils (%) (Auto) 60.9% (40-74) Lymphocytes (%) (Auto) 18.6% (14-46) Monocytes (%) (Auto) 17.0% (4-12) Eosinophils (%) (Auto) 2.9% (0-5) Basophils (%) (Auto) 0.3% (0-3) Prothrombin Time 25.8sec (8.1-12.5) Prothromb Time International Ratio 2.37ratio Sodium Level 138mEq/L (134-144) Potassium Level 3.9mEq/L (3.5-5.2) Chloride Level 100mEq/L (97-108) Carbon Dioxide Level 20mmol/L (18-29) Blood Urea Nitrogen 18mg/dL (8-27) Creatinine 1.18mg/dL (0.76-1.27) Estimat Glomerular Filtration Rate 63mL/min (>59) Glucose Level 108mg/dL (60-99) Calcium Level 9.1mg/dL (8.5-10.1) Total Bilirubin 0.8mg/dL (0.0-1.2) Aspartate Amino Transf (AST/SGOT) 15U/L (0-50) Alanine Aminotransferase (ALT/SGPT) 12U/L (0-44) Alkaline Phosphatase 75U/L (25-160) Total Protein 7.1g/dL (6.4-8.4) Albumin 3.8g/dL (3.4-5.0) Result Diagram: 08/06/1642908/06/16429 X-Rays, CTs and MRIs X-RAY CHEST ONE VIEW, PORTABLE IMPRESSION: No acute process. Dictated by: Eliana Harris M.D. on 08/05/2016 at 16:49 Approved by: Eliana Harris M.D. 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 Mcallister) for further evaluation and management of smanagement of anemia and further evaluation for possible upper GI bleed. Hospital day #2. 1. Anemia, unknown chronicity. Present on admission. Active -Etiology uncertain, likely due to blood loss secondary to GI bleed. -s/p transfusion of 2 units pRBCs -H/H stable with moderate improvement following transfusion. Hb 8.1 -Will transfuse additional unit of pRBCs -GI consulted with possible endoscopy later today. -Continue to monitor for signs/symptoms of active bleeding and repeat H/H. 2. Possible GI bleed, present on admission. Active -Patient chronically anticoagulated on Warfarin. History of melena two weeks ago for 7-10days. -Evening warfarin dose held for supratherapeutic INR. -INR therapeutic this morning, will resume warfarin pending GI evaluation/ endoscopy. -Monitor H/H and repeat INR in the morning. 3. History of pulmonary embolism, present on admission. Ongoing -Patient with factor V leiden and chronically anticoagulated on Warfarin. -Held evening dose of Warfarin on admission for supratherapeutic INR. -INR therapeutic, resume warfarin as above. 4. Elevated troponin, chronic. Present on admission. Ongoing -Patient denies chest pain and via chart review, troponin appears at baseline. -Repeat troponin up from baseline. Patient remains asymptomatic. -Will trend troponin -Nitroglycerin 0.4 SL PRN chest pain -Continue home blood pressure medications 5. Chronic hypertension, present on admission. Ongoing -Continue home medications 6. Chronic Hypertension, present on admission. Ongoing -Continue home medications 7. Chronic Hyperlipidemia, present on admission. Ongoing -Continue home statin 8. History of CAD s/p stents, present on admission. -Continue anti platelet therapy 9. Diabetes mellitus, type 2. chronic. present on admission. Ongoing. -Correctional insulin lispro ordered. 10. COPD, chronic. present on admission. Ongoing -Continue home inhalers PRN: Acetaminophen-fever/headache/mild/moderate pain Antiemetics, as needed Bowel regimen, as needed. Disposition: Patient will likely discharge in 1-2 days pending further evaluation of GI bleed. Pain Evaluation: Adequate Pain Control VTE Prophylaxis: Theraputic Anticoag with Warfarin Resuscitation Status: CPR: Attempt Resuscitation Attending Statement The patient was seen and examined together with Dr. Acosta on 08/06/2016 and I agree with the history, exam and plan as outlined in the note above. . Mias Acosta DO August 06, 2016 07:56 Mack Vasquez MD August 08, 2016 18:45
[2016-08-07] VITALS (10 sets, daily range): BP systolic 119–155; BP diastolic 53–76; PULSE 52–66; RESP 14–22; O2SAT 94–98
--- NOTE | 2016-08-07 03:58 | NUR ---
BOWEL PREP Patient began bowel prep around 1999 and was able to get down several glasses rather quickly. Once he started emptying his bowel he became more hesitant to drink and has been sitting in a chair at the bedside all night, refusing to get in bed and sipping on colyte. Reports large stool that is becoming more watery but not yet clear. Encouraged to finish the bowel prep and to get back to bed as he is very tired and falling asleep in chair. Denies any pain or blood in stool. Will continue to monitor for safety.
[2016-08-07 04:36] LABS: BASOPHILS % (AUTO) 0.3 % (0-3); EOSINOPHILS % (AUTO) 2.9 % (0-5); Mean Corpuscular Hemoglobin 29.3 pg (27.0-35.0); Mean Corpuscular Volume 90.4 fL (81-100); NEUTROPHILS % (AUTO) 60.9 % (40-74); Platelet Count 259 bil/L (150-400)
[2016-08-07 04:48] LABS: INR 2.37 ratio
[2016-08-07] MEDS: 0.9% Sodium Chloride 250 ML IV SCH (08:45)
--- NOTE | 2016-08-07 09:05 | PCM.PNMED ---
Subjective Date of Service August 07, 2016 Subjective Patient is a 81-year-old male anticoagulated on Warfarin with a history of factor V leiden, pulmonary embolism, aortic stenosis s/p TAVR, CAD s/p stenting , diabetes mellitus type 2 and COPD referred to the ED from his scorekeeper's office (Dr. Mcallister) for further evaluation and management of smanagement of anemia and further evaluation for possible upper GI bleed. Hospital day #3. No acute events overnight. 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 Per GI, cannot rule out right sided colon lesion and recommended colonoscopy. Patient started on bowel prep at approximately 2000 and continued throught out the night. Per nursing, he was somewhat hesitant to continue with prep once he started emptying his bowel. He reports several large bowel movements and denies abdominal pain, bloody or dark stool, nausea or vomiting. Exam Vital Signs Vital Sign - Last Date Time Temp Pulse Resp B/P Pulse Ox O2 Delivery O2 Flow Rate FiO2 08/07/16 03:46 36.9 60 20 153/76 97 Room Air Intake and Output 08/06/16 08/06/16 08/07/16 Cumulative From/Thru 15:00 23:00 07:00 08/05/16 15:39 - 08/07/16 05:48 Intake Total 350 ml 100 ml 3000 ml 4600 ml Output Total 1100 ml 600 ml 2850 ml Balance 350 ml -1000 ml 2400 ml 1750 ml Intake Oral 0 ml 3000 ml 3400 ml IV Total 50 ml 100 ml 200 ml Packed Cells 300 ml 1000 ml Output Urine Total 1100 ml 600 ml 2850 ml # Voids 3 6 Exam General: No acute distress, well-developed, well-nourished, appropriately interactive HEENT: Normocephalic, atraumatic.oral mucosa moist, no scleral icterus Cardiovascular: Regular rate and rhythm, no murmurs, no rubs, or gallops appreciated Pulmonary: Clear to auscultation bilaterally with no crackles, wheezes, or rhonchi. Abdomen: Bowel tones present. Soft, nontender, nondistended. No hepatosplenomegaly or masses appreciated. Extremities: Trace edema ankles bilaterally with brawny discoloration consistent with venous staus changes. No clubbing or cyanosis Skin: Normal temperature, poor turgor in neck, and texture; no rash, ulcers, or subcutaneous nodules appreciated. Neurological: Cranial nerves grossly intact. Alert and oriented to person, place , and time. IVs and Medications Medications Reviewed: Medications were reviewed in detail Lab and Diagnostics Laboratory Tests Test 08/06/16 10:35 08/06/16 18:16 08/07/16 04:20 Troponin T 0.045ug/L (0.0-0.011) Hemoglobin 9.4g/dL (13.8-17.2) 10.1g/dL (13.8-17.2) Hematocrit 30.1% (41.0-50.0) 31.2% (41.0-50.0) White Blood Count 5.8th/mm3 (3.8-10.1) Red Blood Count 3.45mil/mm3 (4.40-5.80) Mean Corpuscular Volume 90.4fL (81-100) Mean Corpuscular Hemoglobin 29.3pg (27.0-35.0) Mean Corpuscular Hemoglobin Concent 32.4% (32.0-37.0) Red Cell Distribution Width 17.5% (12.3-15.4) Platelet Count 259bil/L (150-400) Neutrophils (%) (Auto) 60.9% (40-74) Lymphocytes (%) (Auto) 18.6% (14-46) Monocytes (%) (Auto) 17.0% (4-12) Eosinophils (%) (Auto) 2.9% (0-5) Basophils (%) (Auto) 0.3% (0-3) Prothrombin Time 25.8sec (8.1-12.5) Prothromb Time International Ratio 2.37ratio Sodium Level 138mEq/L (134-144) Potassium Level 3.9mEq/L (3.5-5.2) Chloride Level 100mEq/L (97-108) Carbon Dioxide Level 20mmol/L (18-29) Blood Urea Nitrogen 18mg/dL (8-27) Creatinine 1.18mg/dL (0.76-1.27) Estimat Glomerular Filtration Rate 63mL/min (>59) Glucose Level 108mg/dL (60-99) Calcium Level 9.1mg/dL (8.5-10.1) Total Bilirubin 0.8mg/dL (0.0-1.2) Aspartate Amino Transf (AST/SGOT) 15U/L (0-50) Alanine Aminotransferase (ALT/SGPT) 12U/L (0-44) Alkaline Phosphatase 75U/L (25-160) Total Protein 7.1g/dL (6.4-8.4) Albumin 3.8g/dL (3.4-5.0) Result Diagram: 08/07/1641908/07/16419 X-Rays, CTs and MRIs X-RAY CHEST ONE VIEW, PORTABLE IMPRESSION: No acute process. Dictated by: Eliana Harris M.D. on 08/05/2016 at 16:49 Approved by: Eliana Harris M.D. on 08/05/2016 at 16:49 Additional Diagnostics Endoscopy, August 06, 2016. Josué Kennedy MD Impression Two avm < 1 mm in size. No bleeding noted. Most likely the cause of bleeding is small bowel avm's. He robably has more avm distally in the small bowel. However , right sided colon lesion is also in the differential diagnosis. Recommendation Consider colonoscopy. However if the patient does not want to proceed with colonoscopy, we should think about whether both Coumadin and Plavix can be can continue safely. However was benefits needs to be assessed carefully. We will deferred the assessment to the primary care service. Post Procedure Recommendations 1. Restrict activities today. 2. Resume normal activities in the morning. 3. Resume medications. 4. GERD behavioral modification: - Avoid fatty, acidic, spicy, large meals - Do not lie down after meals - Do not eat or drink anything for at least 2 1/2 hours before going to bed at night - Discontinue tobacco and alcohol - Decrease or avoid caffeine - Avoid chocolate and mints - Decrease weight - Avoid aspirin and non steroidal anti-inflammatory agents (NSAID) such as Aleve, Advil, Mobic, Naproxen, Ibuprofen, etc 5. Add proton pump inhibitor. Take 30 minutes before 1st meal of the day. 6. Patient informed of normal post procedure side effects as bloating, drowsiness, blood streaking in the stool 7. If gastric biopsy reveal H.pylori, continue with appropriate treatment 8. If small bowel biopsy reveals celiac, continue with appropriate treatment Assessment & Plan 81-year-old male anticoagulated on Warfarin with a history of factor V leiden, pulmonary embolism, aortic stenosis s/p TAVR, CAD s/p stenting, diabetes mellitus type 2 and COPD referred to the ED from his scorekeeper's office (Dr. Mcallister) for further evaluation and management of smanagement of anemia and further evaluation for possible upper GI bleed. Hospital day #3. 1. Acute blood loss anemia, likely secondary to GI bleed. Present on admission. Improved -AVMs noted on endoscopy. -s/p transfusion of 3 units pRBCs -H/H stable, no signs/symptoms active bleeding -GI consulted, appreciate recommendations. Colonoscopy planned for later today. 2. Probable GI bleed, present on admission. Active -Patient chronically anticoagulated on Warfarin. History of melena two weeks ago for 7-10days. -Warfarin held on admission for supratherapeutic INR, resumed the following morning. -Most recent INR 2.37. -Monitor H/H and INR. 3. History of pulmonary embolism, present on admission. Ongoing -Patient with factor V leiden and chronically anticoagulated on Warfarin. -Warfarin as above. 4. Elevated troponin, chronic. Present on admission. Ongoing -Patient denies chest pain and via chart review, troponin appears at baseline. -Repeat troponin up from baseline but trended down. Patient remains asymptomatic. -Nitroglycerin 0.4 SL PRN chest pain -Continue home blood pressure medications 5. Chronic hypertension, present on admission. Ongoing -Continue home medications 6. Chronic Hypertension, present on admission. Ongoing -Continue home medications 7. Chronic Hyperlipidemia, present on admission. Ongoing -Continue home statin 8. History of CAD s/p stents, present on admission. -Continue anti platelet therapy 9. Diabetes mellitus, type 2. chronic. present on admission. Ongoing. -Correctional insulin lispro ordered. 10. COPD, chronic. present on admission. Ongoing -Continue home inhalers PRN: Acetaminophen-fever/headache/mild/moderate pain Antiemetics, as needed Bowel regimen, as needed. Disposition: Patient will likely discharge in 1-2 days pending further evaluation of GI bleed. Pain Evaluation: Adequate Pain Control VTE Prophylaxis: Theraputic Anticoag with Warfarin Resuscitation Status: CPR: Attempt Resuscitation Attending Statement The patient was seen and examined together with Dr. Acosta on 08/07/2016 and I agree with the history, exam and plan as outlined in the note above. . Misa Acosta DO August 07, 2016 08:46 Mack Vasquez MD August 08, 2016 18:48
[2016-08-07] MEDS: MeTOProlol XL 25 mg ER24 Tablet PO SCH (09:21)
[2016-08-07] MEDS: Pantoprazole 4 mg/mL 10 mL Inj IVPUSH SCH ×2 (09:21→18:36)
--- NOTE | 2016-08-07 10:13 | PCM.PNMED ---
Subjective Date of Service August 07, 2016 Subjective Patient underwent EGD yesterday with identification of 2 AVMs that did not appear to be cause of bleeding. As noted in endoscopy procedure report, right- sided colonic bleeding is in the differential patient will need to undergo colonoscopy today. Overnight patient did well with GoLYTELY. Has been nothing by mouth this morning except for Plavix and metoprolol. Patient has not had blood in the stool, nausea, vomiting, chest pain, dizziness, headache, lightheadedness. He is scheduled for colonoscopy today at 1500 Exam Vital Signs Vital Sign - Last Date Time Temp Pulse Resp B/P Pulse Ox O2 Delivery O2 Flow Rate FiO2 08/07/16 09:17 36.3 53 18 150/62 97 Room Air Intake and Output 08/06/16 08/06/16 08/07/16 Cumulative From/Thru 15:00 23:00 07:00 08/05/16 15:39 - 08/07/16 05:48 Intake Total 350 ml 100 ml 3000 ml 4600 ml Output Total 1100 ml 600 ml 2850 ml Balance 350 ml -1000 ml 2400 ml 1750 ml Intake Oral 0 ml 3000 ml 3400 ml IV Total 50 ml 100 ml 200 ml Packed Cells 300 ml 1000 ml Output Urine Total 1100 ml 600 ml 2850 ml # Voids 3 6 Exam General: Patient awake alert in no acute distress HEENT; conjunctiva are normal; oropharynx is clear; membranes moist; PERRLA Cardio: 2 out of 4 systolic murmur heard over the right substernal border in the second intercostal space, no radiation noted; regular rate and rhythm Respiratory: Decreased sounds throughout but no wheezes or crackles Abdomen: Obese, difficult to palpate, no noted splenomegaly; mild hepatomegaly with percussion and palpitation of liver 2 cm below the right rib Extremities: Mild edema, pulses intact throughout Psych: Appropriate affect Neuro: Sensation intact throughout IVs and Medications Medications Reviewed: Medications were reviewed in detail Lab and Diagnostics Result Diagram: 08/07/1641908/07/16419 X-Rays, CTs and MRIs X-RAY CHEST ONE VIEW, PORTABLE IMPRESSION: No acute process. Dictated by: Eliana Harris M.D. on 08/05/2016 at 16:49 Approved by: Eliana Harris M.D. on 08/05/2016 at 16:49 Additional Diagnostics Endoscopy, August 06, 2016. Josué Kennedy MD Impression Two avm < 1 mm in size. No bleeding noted. Most likely the cause of bleeding is small bowel avm's. He robably has more avm distally in the small bowel. However , right sided colon lesion is also in the differential diagnosis. Recommendation Consider colonoscopy. However if the patient does not want to proceed with colonoscopy, we should think about whether both Coumadin and Plavix can be can continue safely. However was benefits needs to be assessed carefully. We will deferred the assessment to the primary care service. Post Procedure Recommendations 1. Restrict activities today. 2. Resume normal activities in the morning. 3. Resume medications. 4. GERD behavioral modification: - Avoid fatty, acidic, spicy, large meals - Do not lie down after meals - Do not eat or drink anything for at least 2 1/2 hours before going to bed at night - Discontinue tobacco and alcohol - Decrease or avoid caffeine - Avoid chocolate and mints - Decrease weight - Avoid aspirin and non steroidal anti-inflammatory agents (NSAID) such as Aleve, Advil, Mobic, Naproxen, Ibuprofen, etc 5. Add proton pump inhibitor. Take 30 minutes before 1st meal of the day. 6. Patient informed of normal post procedure side effects as bloating, drowsiness, blood streaking in the stool 7. If gastric biopsy reveal H.pylori, continue with appropriate treatment 8. If small bowel biopsy reveals celiac, continue with appropriate treatment Assessment & Plan Assessment/plan 81-year-old male who has had intermittent episodes of melena and presented with anemia with hemoglobin of 6.9. Patient has known CAD with stenting currently on Plavix and multiple blood transfusions were performed with current hemoglobin of 10.1 appearing to be stable. Patient underwent EGD yesterday with identification of 2 AVMs which do not seem to be significant enough to currently contributing to bleeding although there is a high likelihood they were 2 weeks ago when the patient had melena. Differential for this patient also includes right-sided colonic bleeding and patient was given GoLYTELY overnight with anticipated colonoscopy today at 1500. I seen and examined the patient with the resident. Agree with above. Thank you for loss to participate in the care of this interesting patient. VTE Prophylaxis: Theraputic Anticoag with Warfarin Resuscitation Status: CPR: Attempt Resuscitation Milad Back DO August 07, 2016 10:13 Josué Kennedy MD August 08, 2016 09:02
[2016-08-07] MEDS ORDERED: Propofol 10,000 mCg/mL 20 mL Inj ONE (13:19)
--- NOTE | 2016-08-07 13:44 | PCM.PHAPRO ---
Progress Anemia/low hgb Warfarin management per pharmacy Indication: Hx of PE INR goal: 2-3 (will aim for 2.0-2.5) Home warfarin dose: 5 mg on , and 7.5 mg on all other days of the week. Date -August 06-August 07-August 08-August 09-August 10-August 11-August 12-August 13-August INR 3.28 2.89 2.37 INR change -0.39 -0.52 Warf Dose HOLD 5 7.5 a/ Therapeutic and likely able to tolerate home dose p/ To receive 7.5mg today, likely continue home dosing. Martínez Noe S Pharm D August 07, 2016 13:44
--- NOTE | 2016-08-07 16:00 | NUR ---
Pt off unit for procedure pt to endoscopy via wheelchair for colonoscopy. Bowel prep done through the night, pt denied having anything to eat or drink past midnight. Awaiting pt's return.
--- NOTE | 2016-08-07 18:05 | PCM.ENDCOL ---
Colonoscopy Date of Service: August 07, 2016 Physician Josué Kennedy MD Pre Procedure Diagnosis: Anemia Post Procedure Dx & Findings: Hemorrhoids diverticuli polyps Procedure Colonoscopy PROCEDURE IN DETAIL: Prep fair Withdrawal time 11 minutes After unremarkable rectal examination the Olympus video colonoscope was inserted patient's anal canal and was advanced to cecum. Landmarks were identified including the ileocecal valve and appendiceal orifice. Scope further advanced into terminal ileum which showed normal villous structures that any ulcer mass erosion. Scope was withdrawn systematically. Visualized colonic mucosa showed healthy shiny mucosa with normal healthy-appearing vasculature. Patient had multiple polyps in the right side of the colon mostly. Largest one was about a centimeter in the transverse colon. These were not taken because he is on Coumadin with INR of 2.3 and Plavix. Patient also had multiple diverticuli small and large mostly in the sigmoid colon up to the descending colon. In the rectum retroflexion was done which showed hemorrhoids. Anal canal was inspected carefully on the way out and hemorrhoids noted. Impression Multiple polyps in the right colon largest one 1 cm in the transverse colon. Diverticuli Hemorrhoids Normal TI No source of anemia Most likely cause of anemia was and is the AVMs in the small bowel. Recommendation Repeat colonoscopy within 1 year to resect the polyps off Coumadin and Plavix if possible. Diverticular diet Advanced diet as tolerated CT enterography We will start iron supplements with stool softeners. [facility] as an Outpatient. Recommendation risk and benefits of anticoagulation. Follow up in GI clinic 2 weeks. Presedation Assessment Risks and Benefits Informed consent was obtained from the patient after all risks and benefits including but not limited to drug reaction, infection, pain, bleeding, perforation, as well as alternatives were discussed. Patient monitoring Continuous pulse oximetry, cardiac monitoring, blood pressure monitoring, IV access, and oxygen at 2L per nasal cannula. Complications There were no periprocedural complications identified. Post Procedure Plan Post Procedure Recommendations 1. Restrict activities today. 2. Resume normal activities in the morning. 3. Resume medications. 4. Patient informed of normal post procedure side effects as bloating, drowsiness, blood streaking in the stool. 5. average risk CRCS. If colon polyps come back as: -Hyperplastic- can repeat colonoscopy in 10 years -Tubular adenoma- repeat colonoscopy in 5 years -Tubulovillous/villous adenoma- repeat colonoscopy in 3 years -If any dysplasia- return to clinic as soon as possible 6. Please don't hesitate to call me with any questions. Josué Kennedy MD August 07, 2016 18:05
--- NOTE | 2016-08-07 18:11 | PCM.ANEP1 ---
Post Anesthesia Phase 1 PACU Phase 1 Assessment Date of Service: August 07, 2016 ([id number]) Vital Signs Vital Signs Date Time Temp Pulse Resp B/P Pulse Ox O2 Delivery O2 Flow Rate FiO2 08/07/16 18:04 58 16 119/56 94 Room Air 08/07/16 15:33 37.7 59 18 155/64 98 Room Air 08/07/16 14:54 66 16 153/54 96 Room Air 08/07/16 11:16 52 Anesthetic Administered: MAC Level of Alertness: Awake, talking FISHER's with Equal Strength: Yes Pain: No Nausea or Vomiting: No Cardiovascular Function and Hy: Yes Oxygen Delivery: Room Air Lungs: Clear to Auscultation Dermatome Level: Full Sensation Complications: No Follow up Care: No Patient Instructions Provided: Yes Live Burgess MD August 07, 2016 18:11
--- NOTE | 2016-08-07 18:11 | PCM.HPANE ---
Patient Data Date of Service: August 07, 2016 ([id number]) Surgeon Admitting Provider:Mack Vasquez MD Attending Provider:Josué Kennedy MD Primary Care Physician:Edison Mott MD Other Provider: Reason for Visit Symptomatic Anemia,Warfarin Induced Coaculopathy Ht/WT & BMI Height (Feet): 5 Height (Inches): 10.00 Weight (Kilograms): 111.100 Body Mass Index 35.00 Allergies Coded Allergies: No Known Allergies (Unverified , 06/28/16) Past Anesthesia History Anesthesia History: Denies:: Abnormal Airway, Anesthesia Reactions, Difficult Intubation, Fam Anesthesia Reaction, Fam Malignant Hypertherm, Malignant Hyperthermia Diabetes History Hx Diabetes?: Yes Current Bedside Blood Glucose: 117 MRSA MRSA: No Medications Blood Thinner: Coumadin, Plavix Last Dose Blood Thinner: August 06, 2016 Hypertension Medication: Yes Home Meds Incl Beta Myrna: Yes Date Beta Myrna Taken: August 06, 2016 Time Beta Myrna Taken: 0830 Active Scripts Amlodipine 5 Mg Vreehq31 Mg PO DAILY #30 TABLET Ref 3 Prov:Jarek Olmos MD 07/02/16 Clopidogrel 75 Mg Wstrgs72 Mg PO DAILY #90 TABLET Ref 3 Prov:Mack Schultz PA-C 12/08/15 Reported Medications Warfarin Sodium 5 Mg Tablet5 Mg PO FRI/ 30 Days Ref 0 08/05/16 Warfarin Sodium 7.5 Mg Tablet7.5 Mg PO DAILY EXCEPT TU/DAVID 30 Days Ref 0 08/05/[address] 40 Mg Tablet.dr40 Mg PO QAM Ref 0 06/28/16 Budesonide/Formoterol 160-4.5 mcg Inh (Symbicort 160-4.5 mcg Inh)120 Puff Inhaler1 Puff INHALATION BID PRN For Shortness of Breath 06/28/16 Metoprolol Succinate ER 25 Mg Tab.er.24h25 Mg PO QAM 06/28/16 Losartan Potassium 100 Mg Zksnxz302 Mg PO HS 06/28/16 Hydralazine 100 Mg Emfhtf923 Mg PO TID 06/28/16 Atorvastatin (Lipitor)10 Mg Tab10 Mg PO HS 06/28/16 Acetaminophen 500 Mg Tablet1,000 Mg PO Q6H PRN For Pain 09/05/15 Discontinued Reported Medications Hydrochlorothiazide 25 Mg Qvbghq70 Mg PO DAILY 30 Days Ref 0 06/28/16 Warfarin Sodium 5 Mg Tablet5 Mg PO Q THURSDAY 3/24/17 Warfarin Sodium 5 Mg Tablet7.5 Mg PO DAILY except 08/25/15 Discontinued Scripts Cephalexin 500 Mg [id number] Mg PO QID #20 CAPSULE Prov:Jarek Olmos MD 07/02/16 Nitroglycerin SL (Nitrostat)0.4 Mg Tab.subl0.4 Mg SL PRN PRN For Chest Pain #30 Ref 2 1 tab under your tongue for chest pain. May repeat up to 3 tabs if pain continues. Call 911 if pain does not resolve. Prov:Mack Schultz PA-C 12/08/15 History History of ENT Problems?: Yes HEENT History: Positive for:: Cataracts (Left Apr 2015, Right eye 20 years ago ) Denies:: Abnormal Airway Difficult Intubation Dysphagia Glaucoma Hearing Problem Sinus Problem TMJ Denture Type: Full- Upper Partial- Lower Teeth Condition: Within Normal Limits Hx of Heart Problems?: Yes Cardiovascular History: Positive for:: Atrial Fibrillation Cardiac Surgery (Heart cath with stents, TAVR) Edema (chronic LE edema) Heart Murmur () Hypertension Irregular Heartbeat (LBBB) Denies:: AICD Chest Pain Congestive Heart Failure Pacemaker Valvular Heart Disease Hx of Respiratory Problem?: Yes Respiratory History: Positive for:: COPD Dyspnea Denies:: Asthma Chest Surgery Cough Hemoptysis Pneumonia Tuberculosis Other Resp Pertinent History: HX OF MULTIPLE BLOOD CLOTS IN LUNGS Hx Neurologic Problems?: No Neurological History: Denies:: CVA Hx of GI Problems?: Yes Hx of Problems?: No Male Hx: Denies:: Prostate Problems Scrotal Mass Testicular Surgery Hx Musculoskeletal Problems?: Yes Musculoskeletal History: Positive for:: Back Injury (lower back surgery) Denies:: Fibromyalgia Joint Replacement Hx of Psycho/Social Problems?: No Psycho Social History: Denies:: Anxiety Hx Depression Hx Surgeries?: Yes (APPY,STENTS,LOWER BACK,) Hx Any Other Health Problems?: Yes Other History: Positive for:: Hospitalization Denies:: Cancer Thyroid Disease History Blood Transfusions: Denies:: Blood Transfusions Hx Diabetes: YesBedside Blood Glucose: 117 Hx Alcohol Use: NoHx Substance Use: No Smoking Status: Former Smoker Have You Smoked inLast 12 mo: Yes (2 CIGARS A DAY) Stop/Bang Treated for Sleep Apnea?: No Do You Have a CPAP Machine?: No S-Snoring: Do You Snore Loudly: Yes T-Tired: feel tired, fatigued: No O-Obsered: Observed not breath: No P-Blood Pressure: treated: Yes B- Body Mass Index > 35 kg/m2: Yes A- Age over 50: Yes N- Neck Large Circumference: Yes G- Gender Male: Yes VIRI Total Score: 6 VIRI Risk Assessment: High Risk, =/>3 Yes Risk Assessment Category Category 1A: Patient has history of documented sleep apnea, and HAS NOT received any narcotic, sedative or anesthesia administration during this stay. Category 1B: Patient has history of documented sleep apnea, and HAS received any narcotic , sedative or anesthesia administration during this stay Category 2: Patient has SUSPECTED Obstructive Sleep Apnea, and HAS received any narcotic , sedative or anesthesia administration during this stay. Category 3: Patient has SUSPECTED Obstructive Sleep Apnea and HAS NOT received narcotic, sedative or anesthesia administration during this stay. Category 4: Outpatient in Procedural Areas with known sleep apnea or who screen positive for High Risk via the STOP/BANG questionnaire. High Risk, =/>3 Yes Exam Exam Vital Signs Vital Signs Date Time Temp Pulse Resp B/P Pulse Ox O2 Delivery O2 Flow Rate FiO2 08/07/16 18:04 58 16 119/56 94 Room Air 08/07/16 15:33 37.7 59 18 155/64 98 Room Air 08/07/16 14:54 66 16 153/54 96 Room Air 08/07/16 11:16 52 General Appearance: Alert, Oriented X3, Cooperative HEENT/AIRWAY: MP 2 Lungs: Clear to Auscultation Heart: Exam Unremarkable Meds/Labs/Diagnostics Admission Meds Current Medications Hydralazine HCl (Apresoline) 100 mg TID PO Last administered on 08/07/16t 09:20 ; Start 08/06/16 at 20:30 Bedside Blood Glucose: 117 Labs Test 08/05/16 16:41 08/05/16 19:09 08/06/16 10:35 08/07/16 04:20 Magnesium Level 2.1mg/dL (1.6-2.6) Hold Kaur Top Tube Received (Received) Hold Urine Received (Received) Troponin T 0.045ug/L (0.0-0.011) White Blood Count 5.8th/mm3 (3.8-10.1) Red Blood Count 3.45mil/mm3 (4.40-5.80) Hemoglobin 10.1g/dL (13.8-17.2) Hematocrit 31.2% (41.0-50.0) Mean Corpuscular Volume 90.4fL (81-100) Mean Corpuscular Hemoglobin 29.3pg (27.0-35.0) Mean Corpuscular Hemoglobin Concent 32.4% (32.0-37.0) Red Cell Distribution Width 17.5% (12.3-15.4) Platelet Count 259bil/L (150-400) Neutrophils (%) (Auto) 60.9% (40-74) Lymphocytes (%) (Auto) 18.6% (14-46) Monocytes (%) (Auto) 17.0% (4-12) Eosinophils (%) (Auto) 2.9% (0-5) Basophils (%) (Auto) 0.3% (0-3) Prothrombin Time 25.8sec (8.1-12.5) Prothromb Time International Ratio 2.37ratio Sodium Level 138mEq/L (134-144) Potassium Level 3.9mEq/L (3.5-5.2) Chloride Level 100mEq/L (97-108) Carbon Dioxide Level 20mmol/L (18-29) Blood Urea Nitrogen 18mg/dL (8-27) Creatinine 1.18mg/dL (0.76-1.27) Estimat Glomerular Filtration Rate 63mL/min (>59) Glucose Level 108mg/dL (60-99) Uric Acid 7.7mg/dL (2.6-7.2) Calcium Level 9.1mg/dL (8.5-10.1) Total Bilirubin 0.8mg/dL (0.0-1.2) Aspartate Amino Transf (AST/SGOT) 15U/L (0-50) Alanine Aminotransferase (ALT/SGPT) 12U/L (0-44) Alkaline Phosphatase 75U/L (25-160) Total Protein 7.1g/dL (6.4-8.4) Albumin 3.8g/dL (3.4-5.0) Plan Impression Patient chart reviewed, patient interviewed and anesthestic plan with risks, benefits, and alternatives discussed, and informed consent obtained. ASA Physical Status: ASA3 Severe Disease Anesthetic Plan: MAC Bene/Risks/Altern/Consents: Yes HP Complete Prior to Induction: Yes Live Burgess MD August 07, 2016 18:11
--- NOTE | 2016-08-07 18:20 | NUR ---
Pt back from colonoscopy Pt returned from endoscopy via stretcher. Report received from Tricia WALKER. Pt awake, vitals taken and charted. Post colonoscopy instructions provided. Pt verbalized understanding. Pt denied pain or nausea at present. Tolerating PO intake, will advance diet as tolerated. Ongoing care.
[2016-08-08 00:14] VITALS: BP 111/57; PULSE 58; RESP 18; O2SAT 95
[2016-08-08 03:21] VITALS: BP 142/61; PULSE 60; RESP 20; O2SAT 97
[2016-08-08 04:06] LABS: BASOPHILS % (AUTO) 0.5 % (0-3); EOSINOPHILS % (AUTO) 3.2 % (0-5); MONOCYTES % (AUTO) 17.1 % (4-12); Mean Corpuscular Volume 91.3 fL (81-100); NEUTROPHILS % (AUTO) 61.9 % (40-74); Platelet Count 248 bil/L (150-400)
[2016-08-08 04:17] LABS: INR 2.58 ratio
[2016-08-08 05:45] VITALS: PULSE 60
--- NOTE | 2016-08-08 06:47 | NUR ---
Mostly Restful Night/Lower extremities Pt appeared to have a mostly restful night between care interventions w/ no c/o pain, though only appeared to sleep intermittently while switching from bed to recliner chair. Pt has lower extremities outlined where the redness extends for better monitoring. Right leg has more redness and appears more swollen. Per day RN, aware of this.
[2016-08-08 08:00] VITALS: PULSE 62
[2016-08-08] MEDS: 0.9% Sodium Chloride 250 ML IV SCH (08:45)
[2016-08-08 08:51] VITALS: BP 162/65; PULSE 58; RESP 18; O2SAT 95
[2016-08-08] MEDS: MeTOProlol XL 25 mg ER24 Tablet PO SCH (08:54)
[2016-08-08] MEDS: Pantoprazole 4 mg/mL 10 mL Inj IVPUSH SCH (08:54)
--- NOTE | 2016-08-08 10:18 | PCM.PNMED ---
Subjective Date of Service August 08, 2016 Subjective Patient underwent colonoscopy yesterday with identification of multiple polyps with 1 cm polyp in transverse colon that was not removed due to patient being on warfarin and Plavix. Patient was also noted to have many diverticuli and each was assessed for risk of bleeding. Patient has hemorrhoids as well, but still the main cause of this patient's bleeding is from the AVM identified on the EGD. Overnight patient did well with no complaints. Complete review of systems is negative. H&H is stable Exam Vital Signs Vital Sign - Last Date Time Temp Pulse Resp B/P Pulse Ox O2 Delivery O2 Flow Rate FiO2 08/08/16 08:51 36.8 58 18 162/65 95 Room Air Intake and Output 08/07/16 08/07/16 08/08/16 Cumulative From/Thru 15:00 23:00 07:00 08/05/16 15:39 - 08/08/16 05:04 Intake Total 100 ml 1120 ml 5820 ml Output Total 400 ml 1850 ml 5100 ml Balance -300 ml -730 ml 720 ml Intake Oral 0 ml 1120 ml 4520 ml IV Total 100 ml 300 ml Packed Cells 1000 ml Output Urine Total 400 ml 1850 ml 5100 ml # Voids 2 8 # Bowel Movements 4 0 4 Exam eneral: Patient awake alert in no acute distress HEENT; conjunctiva are normal; oropharynx is clear; membranes moist; PERRLA Cardio: 2 out of 4 systolic murmur heard over the right substernal border in the second intercostal space, no radiation noted; regular rate and rhythm Respiratory: Decreased sounds throughout but no wheezes or crackles Abdomen: Obese, difficult to palpate, no noted splenomegaly; mild hepatomegaly with percussion and palpitation of liver 2 cm below the right rib Extremities: Mild edema, pulses intact throughout Psych: Appropriate affect Neuro: Sensation intact throughout IVs and Medications Medications Reviewed: Medications were reviewed in detail Lab and Diagnostics Result Diagram: 08/08/16 03408/08/16 034 X-Rays, CTs and MRIs X-RAY CHEST ONE VIEW, PORTABLE IMPRESSION: No acute process. Dictated by: Eliana Harris M.D. on 08/05/2016 at 16:49 Approved by: Eliana Harris M.D. on 08/05/2016 at 16:49 Additional Diagnostics Endoscopy, August 06, 2016. Josué Kennedy MD Impression Two avm < 1 mm in size. No bleeding noted. Most likely the cause of bleeding is small bowel avm's. He robably has more avm distally in the small bowel. However , right sided colon lesion is also in the differential diagnosis. Recommendation Consider colonoscopy. However if the patient does not want to proceed with colonoscopy, we should think about whether both Coumadin and Plavix can be can continue safely. However was benefits needs to be assessed carefully. We will deferred the assessment to the primary care service. Post Procedure Recommendations 1. Restrict activities today. 2. Resume normal activities in the morning. 3. Resume medications. 4. GERD behavioral modification: - Avoid fatty, acidic, spicy, large meals - Do not lie down after meals - Do not eat or drink anything for at least 2 1/2 hours before going to bed at night - Discontinue tobacco and alcohol - Decrease or avoid caffeine - Avoid chocolate and mints - Decrease weight - Avoid aspirin and non steroidal anti-inflammatory agents (NSAID) such as Aleve, Advil, Mobic, Naproxen, Ibuprofen, etc 5. Add proton pump inhibitor. Take 30 minutes before 1st meal of the day. 6. Patient informed of normal post procedure side effects as bloating, drowsiness, blood streaking in the stool 7. If gastric biopsy reveal H.pylori, continue with appropriate treatment 8. If small bowel biopsy reveals celiac, continue with appropriate treatment Assessment & Plan Assessment/plan 81-year-old male who presented due to acute GI bleed with hemoglobin of 6.9 who is now undergone colonoscopy and EGD with suspected source of bleeding being from 2 AVMs in the distal duodenum. Patient continues to have no complaint and H&H is stable. From a GI perspective the patient cannot be discharged pending hospitalist assessment. Patient should have a repeat colonoscopy in 6 months to resect the polyp in his transverse colon that was not previously resected due to be on warfarin and Plavix. Patient should be on a high-fiber low-fat diverticular diet. Recommended also that the patient undergo CT enterography to rule out small bowel bleeding source. Patient should also be placed on iron supplements as well as stool softeners. Pill cam as an outpatient also recommended the patient should follow up in GI in 2 weeks. Pt's right foot was tender to touch, swollen, and red. Dr Mckeon informed me that he spoken with the hospital service to address the foot issue. I have seen and examined the patient with the resident and agree with above. Thank you for allowing us participate in the care of this patient. VTE Prophylaxis: Theraputic Anticoag with Warfarin Resuscitation Status: CPR: Attempt Resuscitation Milad Back DO August 08, 2016 10:18 Josué Kennedy MD August 09, 2016 16:36
--- NOTE | 2016-08-08 10:24 | PCM.PHAPRO ---
Progress Date of Service: August 08, 2016 Warfarin dosing Date -August 06-August 07-August 08-August INR 3.28 2.89 2.37 2.58 INR change -0.39 -0.52 0.21 Warf Dose HOLD 5 mg 7.5 mg 5 mg A/ INR is therapeutic. P/ Continue with home dosing and and continue to follow labs and monitoring daily. Mack Sandoval August 08, 2016 10:24
--- NOTE | 2016-08-08 10:41 | PCM.DIMED ---
Misa Acosta DO 08/08/16 0930: Discharge Instructions Date of Service August 08, 2016 Dates of Hospitalization August 05, 2016 at 18:24 Discharge Diagnosis Discharge Diagnosis 1. Colonic diverticuli and polyps 2. Hemorrhoids 3. 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 Acute blood loss anemia 5. Acute upper GI bleed 6. Elevated troponin, chronic 7. Chronic hypertension 8. Chronic hyperlipidemia 9. History of coronary artery disease with cardiac stents 10. Diabetes mellitus, type 2. Chronic. 11. COPD, chronic. Medication Instructions Some changes were made to your medications during this hospital stay and listed below. Start taking the following medications: -Ferrous gluconate, 324mg. Take one tablet by mouth once daily. Take with vitamin C with largest meal of the day. -Ascorbic acid (Vitamin C), 500mg. Take one table by mouth once daily. Take with ferrous gluconate with largest meal of the day. -Docusate sodium (colace) 100mg. Take one capsule by mouth once daily as needed for constipation. Hold for loose stools. -Hydrochlorothiazide 12.5mg. Take 1/2 tablet by mouth once daily. -Allopurinol 100mg. Take one tablet by mouth once daily. Diet Heart Healthy, Diabetic Activity No restrictions Call your provider Fever or Chills, Shortness of breath, Bleeding, Chest pain, Weakness (unilateral ), Other (Bloody or dark stools) Patient Instructions Follow up with Dr. Mott within one week to review medications, discuss hospital stay and review Gastroenterology recommendations and follow up. Follow up with Gastroenterology in two weeks. Follow-up Provider: Edison Mott MD Follow-up with PCP in: 1 week Provider: Josué Kennedy MD Follow-up in: 2 weeks Mack Vasquez MD 08/08/16 1849: Discharge Instructions Attending's Statement The patient was seen and examined together with Dr. Acosta on 08/08/2016 and I agree with the history, exam and plan as outlined in the note above. . Misa Acosta DO August 08, 2016 09:30 Mack Vasquez MD August 08, 2016 18:49
[2016-08-08] MEDS ORDERED: FERR325T20 PO (10:51)
[2016-08-08] MEDS ORDERED: Ascorbic Acid PO (10:51)
[2016-08-08] MEDS ORDERED: ZYL100 PO (10:51)
[2016-08-08] MEDS ORDERED: DOCU-41 PO (10:51)
[2016-08-08] MEDS ORDERED: HYDR12.55 PO (10:53)
[2016-08-08] MEDS ORDERED: CEPH-512 PO (11:09)
--- NOTE | 2016-08-08 15:10 | NUR ---
Discharge of patient Reviewed discharge instructions with pt and pt's daughter. Both verbalized understanding. Patient discharged via wheelchair with prescriptions and instructions. IV and telemetry previously discontinued. Patient left hospital with daughter to home self care.
[2016-08-09] MEDS ORDERED: Ascorbic Acid 500 mg Tablet PO SCH (08:30)
--- NOTE | 2016-08-10 09:04 | PCM.DC.MED ---
Discharge Summary Date of Service August 08, 2016 Dates of Hospitalization Date of Hospital Admission August 05, 2016 at 18:24 Date of Discharge: August 08, 2016 Providers: Admitting Physician: Mack Vasquez MD Primary Care Physician: Edison Mott MD Attending Physician: Josué Kennedy MD Diagnosis at Time of Discharge Diagnosis at Time of Discharge 1. Colonic diverticuli and polyps 2. Hemorrhoids 3. 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 Acute blood loss anemia 5. Acute upper GI bleed 6. Elevated troponin, chronic 7. Chronic hypertension 8. Chronic hyperlipidemia 9. History of coronary artery disease with cardiac stents 10. Diabetes mellitus, type 2. Chronic. 11. COPD, chronic. Consultations Gastroenterology: Josué Kennedy MD Procedures XRay, CTs & MRIs X-RAY CHEST ONE VIEW, PORTABLE IMPRESSION: No acute process. Dictated by: Eliana Harris M.D. on 08/05/2016 at 16:49 Approved by: Eliana Harris M.D. on 08/05/2016 at 16:49 Other Diagnostics Endoscopy, August 06, 2016. Josué Kennedy MD Impression Two avm < 1 mm in size. No bleeding noted. Most likely the cause of bleeding is small bowel avm's. He robably has more avm distally in the small bowel. However , right sided colon lesion is also in the differential diagnosis. . Brief History Per admission history and physical on 08/05/16. Ran Rushing DO Mr. Mora is a 81-year-old gentleman currently on warfarin due to factor V laden and history of pulmonary embolism, on Plavix due to coronary stenting and TAVR December 2015, who also has COPD and diabetes who was sent to the emergency department from Dr. Hernandez's office due to a hemoglobin of 6.9 and reported symptomatic anemia. Patient reports that about a month ago he started having dark tarry stools that lasted for approximately 2 weeks before stopping. The last 2 weeks he has been free of hematochezia and melena and denies ongoing dizziness, lightheadedness, chest pain, shortness of breath, abdominal pain, nausea/vomiting or epigastric pain, but does state that he has been tired and cold for the last few weeks. On admission the patient's hemoglobin 6.9 with a hematocrit of 22.7. No leukocytosis or thrombocytopenia. Creatinine is high normal and there is no hyperglycemia. Troponin was mildly elevated although this patient does have chronic troponin elevations; repeat troponin increased to 0.05. Patient continues to the chest pain. Patient was typed and crossed for 2 units of PRBCs approximately hemoglobin to 8.1. Additional transfusions are pending. We are asked to see this patient in consult due to probability of upper GI bleed and need for upper endoscopy. Patient continues to deny symptoms as noted above. He is still on warfarin and Plavix and a supratherapeutic. Of note the patient is taking Protonix 40 mg by mouth daily as an outpatient. Patient also has not had a colonoscopy in cluster 10 years even though he was instructed by Dr. Mott to undergo colonoscopy approximately 4 years ago. Hospital Course Mr. 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 Mcallister) for further evaluation and management of anemia and possible upper GI bleed. 1. Acute blood loss anemia, unknown chronicity. Resolved -Likely secondary to upper GI bleed and Gastroenterology was consulted. -Hb 6.9 on admission, patient was transfused 3 units pRBCs with repeat Hb 9.4. Hemoglobin remained > 9.0 -Endoscopy was performed per GI on 08/06 which revealed two small AVMs within the small bowel -Colonoscopy on 08/07 per GI to asses for right-sided lesion/mass. Which revealed colonic diverticuli and polyps, no cause for bleeding. -Monitored H/H q8h, remained stable with no signs/symptoms active bleeding at discharge. -Patient is to follow up with GI in two weeks and start iron supplements as well as stool softeners, per GI. 2. Probable upper GI bleed, present on admission. Improved -Likely secondary to AVMs noted on endoscopy. Patient chronically anticoagulated on Warfarin and repoted a history of melena two weeks ago for 7- 10days. -H/H 6.9/22.7 on admission. INR is slightly supratherapeutic at 3.23. -Patient's evening dose of warfarin was held on admission for supratherapeutic INR and FFP due to patient's significant cardiac history and INR only slightly elevated. -Repeat INR the following morning was therapeutic and warfarin dosing resumed per pharmacy. -GI was consulted and followed, appreciate recommendations and expertise. 3. History of pulmonary embolism, present on admission. Presumed stable -Patient with factor V leiden and chronically anticoagulated on Warfarin. -INR supratherapeutic on admission, 3.23 and evening dose of warfarin was held -Repeat INR therapeutic and warfarin dosing resumed per pharmacy. 4. Elevated troponin, chronic. Present on admission. Presumed stable -Patient denied chest pain and via chart review, troponin appears at baseline. -Sublingual nitroglycerin was available as needed. Patient remained asymptomatic for chest pain and no nitro was given. -Patient was continued on home medications. 5. Chronic hypertension, present on admission. Presumed stable. -Patient was continued on home medications. 6. Chronic Hypertension, present on admission. Presumed stable. -Patient was continued on home anti-hypertensive medications. 7. Chronic Hyperlipidemia, present on admission.Presumed stable. -Patient was continued on home statin 8. History of CAD s/p stents, present on admission. -Patient was continued on anti platelet therapy (clopidogrel) 9. Diabetes mellitus, type 2. chronic. present on admission. Presumed stable. -Received correctional insulin lispro as needed. 10. COPD, chronic. present on admission. Presumed stable. -Patient's home inhalers were continued and supplemental oxygen available as needed. Exam Vital Signs (Last) Date Time Temp Pulse Resp B/P Pulse Ox O2 Delivery O2 Flow Rate FiO2 08/08/16 08:51 36.8 58 18 162/65 95 Room Air Exam General: No acute distress, well-developed, well-nourished, appropriately interactive HEENT: Normocephalic, atraumatic.oral mucosa moist, no scleral icterus Cardiovascular: Regular rate and rhythm, no murmurs, no rubs, or gallops appreciated Pulmonary: Clear to auscultation bilaterally with no crackles, wheezes, or rhonchi. Abdomen: Bowel tones present. Soft, nontender, nondistended. No hepatosplenomegaly or masses appreciated. Extremities: Trace edema ankles bilaterally with brawny discoloration consistent with venous staus changes. No clubbing or cyanosis Skin: Normal temperature, poor turgor in neck, and texture; no rash, ulcers, or subcutaneous nodules appreciated. Neurological: Cranial nerves grossly intact. Alert and oriented to person, place , and time. Test 08/05/16 16:41 08/05/16 19:09 08/06/16 10:35 08/07/16 04:20 Magnesium Level 2.1mg/dL (1.6-2.6) Hold Kaur Top Tube Received (Received) Hold Urine Received (Received) Troponin T 0.045ug/L (0.0-0.011) Uric Acid 7.7mg/dL (2.6-7.2) Test 08/08/16 03:40 White Blood Count 5.7th/mm3 (3.8-10.1) Red Blood Count 3.21mil/mm3 (4.40-5.80) Hemoglobin 9.3g/dL (13.8-17.2) Hematocrit 29.3% (41.0-50.0) Mean Corpuscular Volume 91.3fL (81-100) Mean Corpuscular Hemoglobin 29.0pg (27.0-35.0) Mean Corpuscular Hemoglobin Concent 31.7% (32.0-37.0) Red Cell Distribution Width 16.8% (12.3-15.4) Platelet Count 248bil/L (150-400) Neutrophils (%) (Auto) 61.9% (40-74) Lymphocytes (%) (Auto) 17.1% (14-46) Monocytes (%) (Auto) 17.1% (4-12) Eosinophils (%) (Auto) 3.2% (0-5) Basophils (%) (Auto) 0.5% (0-3) Prothrombin Time 28.2sec (8.1-12.5) Prothromb Time International Ratio 2.58ratio Sodium Level 142mEq/L (134-144) Potassium Level 3.7mEq/L (3.5-5.2) Chloride Level 104mEq/L (97-108) Carbon Dioxide Level 21mmol/L (18-29) Blood Urea Nitrogen 14mg/dL (8-27) Creatinine 1.12mg/dL (0.76-1.27) Estimat Glomerular Filtration Rate 67mL/min (>59) Glucose Level 92mg/dL (60-99) Calcium Level 8.9mg/dL (8.5-10.1) Total Bilirubin 0.5mg/dL (0.0-1.2) Aspartate Amino Transf (AST/SGOT) 15U/L (0-50) Alanine Aminotransferase (ALT/SGPT) 11U/L (0-44) Alkaline Phosphatase 72U/L (25-160) Total Protein 6.4g/dL (6.4-8.4) Albumin 3.8g/dL (3.4-5.0) Discharge Medications Discharge Medications ([Ascorbic Acid]) 500 MG TABLET 500 MG PO DAILY Prescribed by: RAN RUSHING DO Allopurinol (Allopurinol) 100 Mg Tablet 100 MG PO DAILY Prescribed by: RAN RUSHING DO Atorvastatin (Lipitor) 10 Mg Tab 10 MG PO HS (Reported) Cephalexin (Keflex) 500 Mg Capsule 500 MG PO QID Prescribed by: RAN RUSHING DO Clopidogrel (Clopidogrel) 75 Mg Tablet 75 MG PO DAILY Prescribed by: NESTOR MARTIN Ferrous Gluconate (Ferrous Gluconate) 324 Mg Tablet 324 MG PO DAILYWM Prescribed by: RAN RUSHING DO Hydralazine (Hydralazine) 100 Mg Tablet 100 MG PO TID (Reported) Hydrochlorothiazide (Hydrochlorothiazide) 12.5 Mg Tablet 12.5 MG PO DAILY Prescribed by: RAN RUSHING DO Losartan Potassium (Losartan Potassium) 100 Mg Tablet 100 MG PO HS (Reported) Metoprolol Succinate ER (Metoprolol Succinate ER) 25 Mg Tab.er.24h 25 MG PO QAM (Reported) Pantoprazole DR (Pantoprazole DR) 40 Mg Tablet.dr 40 MG PO QAM (Reported) Warfarin Sodium (Warfarin Sodium) 7.5 Mg Tablet 7.5 MG PO DAILY EXCEPT TUE/DAVID ( Reported) Warfarin Sodium (Warfarin Sodium) 5 Mg Tablet 5 MG PO TUE/THUR (Reported) As needed Acetaminophen (Acetaminophen) 500 Mg Tablet 1,000 MG PO Q6H PRN PRN For Pain ( Reported) Budesonide/Formoterol 160-4.5 mcg Inh (Symbicort 160-4.5 mcg Inh) 120 Puff Inhaler 1 PUFF INHALATION BID PRN PRN For Shortness of Breath (Reported) Docusate Sodium (Colace) 100 Mg Capsule 100 MG PO DAILY PRN PRN For Constipation Prescribed by: RAN M BEUNING, DO Additional med instructions Some changes were made to your medications during this hospital stay and listed below. Start taking the following medications: -Ferrous gluconate, 324mg. Take one tablet by mouth once daily. Take with vitamin C with largest meal of the day. -Ascorbic acid (Vitamin C), 500mg. Take one table by mouth once daily. Take with ferrous gluconate with largest meal of the day. -Docusate sodium (colace) 100mg. Take one capsule by mouth once daily as needed for constipation. Hold for loose stools. -Hydrochlorothiazide 12.5mg. Take 1/2 tablet by mouth once daily. -Allopurinol 100mg. Take one tablet by mouth once daily. Followup Plan Discharge Diet: Heart Healthy, Diabetic Discharge Activity: No restrictions Patient Instructions Follow up with Dr. Mott within one week to review medications, discuss hospital stay and review Gastroenterology recommendations and follow up. Follow up with Gastroenterology in two weeks. Follow-up Provider: Edison Mott MD Follow-up with PCP in: 1 week Provider: Josué Kennedy MD Follow-up in: 2 weeks Time spent Greater than 30 minutes was spent in preparation of discharge with greater than 50% of that time dedicated to patient counseling and coordination of care. . Attending Statement The patient was seen and examined together with Dr. Rushing on 08/08/2016 and I agree with the history, exam and plan as outlined in the note above. . copies to: Edison Mott MD, Courtney M DO August 08, 2016 10:55 Mack Vasquez MD August 12, 2016 08:39
[2016-09-07] MEDS ORDERED: ACET-2766 PO (10:22)
[2016-09-07] MEDS ORDERED: NITR0.4T6 SL (10:22)
== END 2016-08-08 13:20 | disposition home or self-care (01) | DRG 300 ==
LOC: SED 15:29 → PCC 18:24
PROVIDERS: ADMIT Internal Medicine; ATTEND Internal Medicine
PROC: 30233N1 Transfusion of Nonautologous Red Blood Cells into Peripheral Vein, Percutaneous Approach (ICD-10-PCS; 2016-08-05)
PROC: 30233N1 Transfusion of Nonautologous Red Blood Cells into Peripheral Vein, Percutaneous Approach (ICD-10-PCS; 2016-08-06)
PROC: 0DJ08ZZ Inspection of Upper Intestinal Tract, Via Natural or Artificial Opening Endoscopic (ICD-10-PCS; principal; 2016-08-06 15:00)
PROC: 0DJD8ZZ Inspection of Lower Intestinal Tract, Via Natural or Artificial Opening Endoscopic (ICD-10-PCS; 2016-08-07)
DX: Q27.33 Arteriovenous malformation of digestive system vessel (principal); K92.2 Gastrointestinal hemorrhage, unspecified; D68.51 Activated protein C resistance; I27.82 Chronic pulmonary embolism; D62 Acute posthemorrhagic anemia; I10 Essential (primary) hypertension; E78.5 Hyperlipidemia, unspecified; I25.10 Atherosclerotic heart disease of native coronary artery without angina pectoris; J44.9 Chronic obstructive pulmonary disease, unspecified; K20.9 Esophagitis, unspecified; E11.8 Type 2 diabetes mellitus with unspecified complications; T45.515A Adverse effect of anticoagulants, initial encounter; D12.3 Benign neoplasm of transverse colon; K64.8 Other hemorrhoids; Z79.01 Long term (current) use of anticoagulants; Z87.891 Personal history of nicotine dependence; Z95.5 Presence of coronary angioplasty implant and graft

== ENCOUNTER 2016-09-17 08:25 | Inpatient (IN) | payer MEDICARE, OTHER ==
[~2016-09-17] VITALS: Ht 177.8 cm; Wt 107.8 kg
[2016-09-17] VITALS (9 sets, daily range): BP systolic 155–195; BP diastolic 42–92; PULSE 55–75; RESP 14–20; O2SAT 95–99
[~2016-09-17 08:25] MED LIST changes: -AMLO5TAB2 PO; +Ascorbic Acid PO; -CEPH500C PO; -CLOP75TA28 PO; +DOCU-41 PO; +FERR325T20 PO; +HYDR12.55 PO; -HYDR25TA4 PO; -NITR0.4T SL; +NITR0.4T6 SL; -Propofol 10,000 mCg/mL 20 mL Inj ONE; -SYMINH INHALATION; +WARF7.5T4 PO; +ZYL100 PO
--- NOTE | 2016-09-17 08:36 | ED.REPORT ---
HPI-GI Bleed Date of Service Sep 17, 2016 ED Provider: Terrance López MD A 81 year old male on Coumadin with a history of GI bleed, hypertension, PE, aortic stenosis, aortic valve replacement, COPD and diabetes is referred to the ED from Urgent Care due to a possible GI bleed. The pt had a GI bleed last month but a scope was negative. He has had outpatient blood transfusions a total of three times, including the last two weekends. He has been passing dark black stools for the last two to three days accompanied by dizziness, though he denies chest pain or difficulty breathing. He was seen by MARK Merchant, this morning and swallowed a pill camera. The bleed is suspected to be in his small bowel. Nursing Notes Stated Complaint: BLACK STOOL/SENT FROM Chief Complaint: Male Abdominal Pain Nursing Notes Reviewed: Yes Allergies: Coded Allergies: No Known Allergies (Unverified , 09/17/16) Scheduled Allopurinol (Allopurinol) 100 Mg Tablet 100 MG PO DAILY Amlodipine (Amlodipine) 5 Mg Tablet 10 MG PO DAILY Ascorbate Calcium (Vitamin C) 500 Mg Tablet 500 MG PO BID Atorvastatin (Lipitor) 10 Mg Tab 10 MG PO HS Budesonide/Formoterol 160-4.5 mcg Inh (Symbicort 160-4.5 mcg Inh) 120 Puff Inhaler 1 PUFF INHALATION BID Clopidogrel (Clopidogrel) 75 Mg Tablet 75 MG PO DAILY Ferrous Gluconate (Ferrous Gluconate) 324 Mg Tablet 324 MG PO DAILYWM Hydralazine (Hydralazine) 50 Mg Tablet 100 MG PO TIDWM Hydrochlorothiazide (Hydrochlorothiazide) 12.5 Mg Tablet 12.5 MG PO DAILY Losartan Potassium (Losartan Potassium) 100 Mg Tablet 200 MG PO DAILY Metoprolol Succinate ER (Metoprolol Succinate ER) 25 Mg Tab.er.24h 25 MG PO DAILY Pantoprazole DR (Pantoprazole DR) 40 Mg Tablet.dr 40 MG PO QAM Warfarin Sodium (Warfarin Sodium) 5 Mg Tablet 7.5 MG PO , , Fri, , [place] Warfarin Sodium (Warfarin Sodium) 5 Mg Tablet 5 MG PO , Scheduled PRN Acetaminophen (Acetaminophen) 500 Mg Tablet 1,000 MG PO Q6H PRN PRN For Pain Nitroglycerin SL (Nitroglycerin SL) 0.4 Mg Tab.subl 0.4 MG SL PRN chest pain General Time Seen by Provider: 08:31 Chief Complaint Chief Complaint: Other (Melena) Hx Obtained From: Patient Arrived By: Walk-in Onset Occurred: 3 days ago Recent Healthcare: Recent doctor visit Similar Sx Previous: Yes Past Medical History Past Medical History Notes: 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 Orellana, Dr. 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 Physical Exam Initial Vital Signs Vital Signs (First) Date Time Temp Pulse Resp B/P Pulse Ox O2 Delivery O2 Flow Rate FiO2 09/17/16 08:31 36.6 59 18 160/64 98 Room Air Initial VS: Reviewed General/Constitutional: Awake, Alert Respiratory / Chest: Atraumatic, Breath sounds NL, Breath sounds = bilat, No respiratory distress Cardiovascular: Heart rate NL, Regular rhythm harsh systolic murmur, left upper sternal border Abdomen: Atraumatic, Soft, Non-tender Rectum / Perineum: Atraumatic, No gross blood guaiac positive Head / Eyes: Atraumatic, Normocephalic, PERRL, EOMI ENT: Atraumatic, Airway patent, Mucous membranes moist Skin Skin: Atraumatic, Color NL, No rash, Warm, Dry Neurologic: Oriented X3, Speech NL, No motor deficits, No sensory deficits Neck: Atraumatic, Supple, Full range of motion Back: Atraumatic, Full range of motion Upper Extremity / MS: Atraumatic, Full range of motion Lower Extremity / Pelvis / MS: Atraumatic, Full range of motion Psychiatric: Affect NL, Mood NL Interpretation & Diagnostics Lab Results Interpretation Result Diagram: 09/17/16 0855 09/17/16 0855 Test 09/17/16 08:55 White Blood Count 7.1th/mm3 (3.8-10.1) Red Blood Count 2.87mil/mm3 (4.40-5.80) Hemoglobin 8.5g/dL (13.8-17.2) Hematocrit 27.4% (41.0-50.0) Mean Corpuscular Volume 95.5fL (81-100) Mean Corpuscular Hemoglobin 29.6pg (27.0-35.0) Mean Corpuscular Hemoglobin Concent 31.0% (32.0-37.0) Red Cell Distribution Width 18.3% (12.3-15.4) Platelet Count 256bil/L (150-400) Neutrophils (%) (Auto) 59.7% (40-74) Lymphocytes (%) (Auto) 24.7% (14-46) Monocytes (%) (Auto) 11.0% (4-12) Eosinophils (%) (Auto) 3.7% (0-5) Basophils (%) (Auto) 0.3% (0-3) Prothrombin Time 26.1sec (8.1-12.5) Prothromb Time International Ratio 2.40ratio Sodium Level 139mEq/L (134-144) Potassium Level 4.3mEq/L (3.5-5.2) Chloride Level 104mEq/L (97-108) Carbon Dioxide Level 24mmol/L (18-29) Blood Urea Nitrogen 27mg/dL (8-27) Creatinine 1.22mg/dL (0.76-1.27) Estimat Glomerular Filtration Rate 61mL/min (>59) Glucose Level 132mg/dL (60-99) Calcium Level 9.2mg/dL (8.5-10.1) Total Bilirubin 0.5mg/dL (0.0-1.2) Aspartate Amino Transf (AST/SGOT) 21U/L (0-50) Alanine Aminotransferase (ALT/SGPT) 17U/L (0-44) Alkaline Phosphatase 61U/L (25-160) Total Protein 7.1g/dL (6.4-8.4) Albumin 3.8g/dL (3.4-5.0) Hold Kaur Top Tube Received (Received) ECG Interpretation ECG Interpretation: normal sinus rhythm with a rate of 58 LBBB unchanged from previous dated 08/05/2016 Time: 09:10 Interpreted by: ED physician Re-Eval/Medical Decision Med Decision/Clinical Course 81-year-old male history of GI bleed, aortic valve replacement, PE on Coumadin sent in by GI doctor for down trending hemoglobin and melena. Patient with admission for GI bleed 6 weeks ago with endoscopy and colonoscopy with no identification of source of bleeding. On trending hemoglobin over the last couple weeks. Has been getting outpatient transfusions. Saw GI doctor today with capsule placed in pending. Sent in for admission given recent melanotic schools. On arrival his vital signs are stable. His hemoglobin is stable. He is guaiac positive with no gross blood. Discussed with GI Dr. Kennedy who recommended admission 1 unit PRBCs. Discussed with MARK King, who agreed with plan for admission and Dr Kennedy follow up on capsule results tonight. PPI drip. Admitted to hospitalist. Source of Hx: Old records Re-Evaluation/Progress : Time of Eval: 08:31 Re-Evaluation/Progress Note: Pt informed of the diagnosis and plan for admission during the initial interview. The pt understands and agrees with the plan. All questions are addressed at this time. Consultation #1: Referral / Consult Name: Josué Kennedy MD Call Returned at: 08:35 Play Writer: Agrees with eval, Agrees with plan Note: Spoke to MARK Merchant, who agrees to see the pt. GI camera results will be followed up with and Dr. Kennedy will consult. Consultation #2: Referral / Consult Name: Eddy Aviles Consulted With: Hospitalist Call Returned at: 10:39 Play Writer: Agrees with eval, Agrees with plan, Accepts admit Note: Spoke with Dr. Aviles, hospitalist, regarding pt's case. Dr. Aviles agrees with the evaluation and agrees to admit the pt. Consultation #3: Referral / Consult Name: Josué Kennedy MD Call Returned at: 10:55 Play Writer: Agrees with eval, Agrees with plan Note: Spoke to Dr. Kennedy in the ED regarding pt's case. Dr. Kennedy requests a consult with Dr. Jeo, python consultant GI. Consultation #4: Referral / Consult Name: Hiren Joe MD Call Returned at: 11:01 Play Writer: Agrees with eval, Agrees with plan Note: Consulted with Dr. Joe GI, regarding pt's case. Dr. Joe agrees with the evaluation and plan. He will follow up with the pt. Counseled Regarding: Diagnosis, Lab results, Need for admission Discharge & Departure Impression: Primary Impression: GI bleed GI bleed type/associated pathology: unspecified gastrointestinal hemorrhage type Qualified Code: K92.2 - Gastrointestinal hemorrhage, unspecified Disposition: ADMITTED TO HOSPITAL Discharge Condition All VS Reviewed: Yes Condition: Stable Referrals: Edison Mott MD (PCP) Kristal Attestation Portions of this note were transcribed by Sumeet Kovacs. I, Dr. López personally performed the history, physical exam and medical decision-making; I reviewed and confirmed the accuracy of the information in the transcribed note. Signed by: Kristal Macias, 09/17/16 and 1045. copies to: Edison Mott MD, Ben M MD Sep 17, 2016 08:36 SUMEET KOVACS Sep 17, 2016 08:45
[2016-09-17] MEDS ORDERED: Pantoprazole 4 mg/mL 10 mL Inj IVPUSH ONE (08:55)
[2016-09-17] MEDS ORDERED: Pantoprazole Inj 80 MG, Pharmacy To Mix 1 EA in 0.9% Sodium Chloride 80 ML IV ONE ×2 (08:55)
[2016-09-17 09:11] LABS: BASOPHILS % (AUTO) 0.3 % (0-3); EOSINOPHILS % (AUTO) 3.7 % (0-5); Mean Corpuscular Hemoglobin 29.6 pg (27.0-35.0); Mean Corpuscular Volume 95.5 fL (81-100); NEUTROPHILS % (AUTO) 59.7 % (40-74); Platelet Count 256 bil/L (150-400)
[2016-09-17 09:24] LABS: INR 2.4 ratio
[2016-09-17] MEDS ORDERED: Alum-Mag Hydrox-Simeth 30 mL Suspension PO PRN ×2 (10:45→17:55)
[2016-09-17] MEDS ORDERED: Ondansetron 2 mg/mL 2 mL Inj IVPUSH PRN ×2 (10:45→17:55)
[2016-09-17] MEDS ORDERED: HYDR-3940 PO (11:24)
[2016-09-17] MEDS ORDERED: CLOP75TA28 PO (11:27)
[2016-09-17] MEDS ORDERED: AMLO5TAB2 PO (11:27)
[2016-09-17] MEDS ORDERED: SYMINH INHALATION (11:30)
[2016-09-17] MEDS ORDERED: WARF5TAB7 PO (11:37)
[2016-09-17] MEDS ORDERED: ASCO-294 PO (11:37)
--- NOTE | 2016-09-17 13:10 | NUR ---
ADMIT Admitted a 81/M into room 3011 following report from Pascale Perry, ED RN. Pt A&Ox4, denies any pain/discomfort and making needs known. He was able to amb from stretcher to bed with SBA using personal cane. Pt arrived with 1 unit of blood hanging, started in ED and consent obtained by RN in ED. Pt has 2 IV's, both flushing easily. Pt on RA, denies any SOB. Protonix gtt also running. Tele placed and per equipment monitor phototypesetting, pt has 1st degree block with IVCD, HR SB 50-60's. Pt swallowed a GI camera this AM at GI office, wearing a belt holding a machine which is monitoring camera as it passes down GI tract. Pt states he's been taking laxatives for two days with effective results. Pt is NPO at this time. Pt introduced to staff, bed/call light controls and room. He reports understanding to call staff to get up OOB. Bed in lowest, locked position and call light in reach.
--- NOTE | 2016-09-17 13:28 | NUR ---
Blood I unit of blood done at 1428, pt tolerated well. VS obtained: 36.7, 58, 192/87, 20, 96% on RA. Total input 321.
[2016-09-17 16:17] LABS: APPEARANCE,URINE CLEAR (CLEAR,HAZY); COLOR,URINE YELLOW (YELLOW); OCCULT BLOOD,URINE NEGATIVE (NEGATIVE); PH,URINE 5.5 (5.0-8.0); UROBILINOGEN,URINE NORMAL (NORMAL)
--- NOTE | 2016-09-17 16:47 | NUR ---
GI camera belt/machine GI RN took belt/machine back to office with her this afternoon. Camera has passed through pt.
[2016-09-17] MEDS ORDERED: Polyethylene Glycol (PEG) 17 Gm Powder PO PRN (17:55)
--- NOTE | 2016-09-17 18:08 | PCM.HPMED ---
Subjective Date of Service Sep 17, 2016 Primary Provider: Admitting Physician: Eddy Aviles Primary Care Physician: Edison Mott MD Attending Physician: Eddy Aviles Chief Complaint: black stools and lightheaded History of Present Illness: 81-year-old male with history of factor V leiden, pulmonary embolism (on chronic anticoagulation with Warfarin), aortic stenosis s/p TAVR, HTN, CAD s/p stenting (on Plavix), diabetes mellitus type 2 and COPD was discharged from our hospital just one week ago after presenting with GI bleed at which time EGD and colonoscopy were notable for colonic diverticuli and polyps, hemorrhoids and 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 He was discharged home with continued anticoagulation at that time. He has started noticing melanotic stool over the past 4 days and has required additional blood transfusion since his discharge one week ago. He had an appointment with GI specialty (Dr. Kennedy) earlier today who initiated a capsule endoscopy in his office and directed the patient to the ED to be admitted for further observation pending the result of his capsule study. Patient reports occasional lightheadedness but otherwise denies any chest pain, syncope, nausea, or vomiting. He further denies any abdominal pain or hematochezia. Review of Systems: Constitutional: Negative, except as otherwise mentioned in the history above. Ophthalmologic: Negative, except as otherwise mentioned in the history above. Cardiovascular: Negative, except as otherwise mentioned in the history above. Respiratory: Negative, except as otherwise mentioned in the history above. Gastrointestinal: Negative, except as otherwise mentioned in the history above. Genitourinary: Negative, except as otherwise mentioned in the history above. Musculoskeletal: Negative, except as otherwise mentioned in the history above. Neurological: Negative, except as otherwise mentioned in the history above. Psychiatric: Negative, except as otherwise mentioned in the history above. Hematologic/Lymphatic: Negative, except as otherwise mentioned in the history above. Allergic/Immunologic: Negative, except as otherwise mentioned in the history above. Allergies Coded Allergies: No Known Allergies (Unverified , 09/17/16) Home Medications Amlodipine 10 MG PO DAILY Atorvastatin 10 MG PO HS Cephalexin 500 MG PO QID Clopidogrel 75 MG PO DAILY Hydralazine 100 MG PO TID Hydrochlorothiazide 25 MG PO DAILY Losartan Potassium 100 MG PO HS Metoprolol Succinate ER 25 MG PO QAM Pantoprazole DR 40 MG PO QAM Warfarin Sodium 7.5 MG PO DAILY except Warfarin Sodium 5 MG PO Q FRIDAY Acetaminophen 1,000 MG PO Q6H PRN For Pain Budesonide/Formoterol 160-4.5 mcg Inh 1 PUFF INHALATION BID PRN For Shortness of Breath Nitroglycerin SL 0.4 Mg Tab.subl 0.4 MG SL PRN For Chest Pain Exam Vital Signs & I/O Vital Sign- Last 8 Hours Date Time Temp Pulse Resp B/P Pulse Ox O2 Delivery O2 Flow Rate FiO2 09/17/16 17:54 37.1 75 18 169/67 95 09/17/16 13:11 59 09/17/16 13:05 36.7 58 20 195/92 97 Room Air 09/17/16 12:25 57 16 185/47 99 Room Air 09/17/16 11:15 55 14 169/42 99 Room Air Lab & Micro Results Laboratory Tests Test 09/17/16 08:55 09/17/16 16:04 White Blood Count 7.1th/mm3 (3.8-10.1) Red Blood Count 2.87mil/mm3 (4.40-5.80) Hemoglobin 8.5g/dL (13.8-17.2) Hematocrit 27.4% (41.0-50.0) Mean Corpuscular Volume 95.5fL (81-100) Mean Corpuscular Hemoglobin 29.6pg (27.0-35.0) Mean Corpuscular Hemoglobin Concent 31.0% (32.0-37.0) Red Cell Distribution Width 18.3% (12.3-15.4) Platelet Count 256bil/L (150-400) Neutrophils (%) (Auto) 59.7% (40-74) Lymphocytes (%) (Auto) 24.7% (14-46) Monocytes (%) (Auto) 11.0% (4-12) Eosinophils (%) (Auto) 3.7% (0-5) Basophils (%) (Auto) 0.3% (0-3) Prothrombin Time 26.1sec (8.1-12.5) Prothromb Time International Ratio 2.40ratio Sodium Level 139mEq/L (134-144) Potassium Level 4.3mEq/L (3.5-5.2) Chloride Level 104mEq/L (97-108) Carbon Dioxide Level 24mmol/L (18-29) Blood Urea Nitrogen 27mg/dL (8-27) Creatinine 1.22mg/dL (0.76-1.27) Estimat Glomerular Filtration Rate 61mL/min (>59) Glucose Level 132mg/dL (60-99) Calcium Level 9.2mg/dL (8.5-10.1) Total Bilirubin 0.5mg/dL (0.0-1.2) Aspartate Amino Transf (AST/SGOT) 21U/L (0-50) Alanine Aminotransferase (ALT/SGPT) 17U/L (0-44) Alkaline Phosphatase 61U/L (25-160) Total Protein 7.1g/dL (6.4-8.4) Albumin 3.8g/dL (3.4-5.0) Hold Kaur Top Tube Received (Received) Urine Color Yellow (YELLOW) Urine Appearance Clear (CLEAR,HAZY) Urine pH 5.5 (5.0-8.0) Urine Specific [place] 1.020 (1.003-1.035) Urine Protein Tracemg/dL (NEG,TRACE) Urine Glucose (UA) Negativemg/dL (NEGATIVE) Urine Ketones Negativemg/dL (NEGATIVE) Urine Occult Blood Negative (NEGATIVE) Urine Nitrite Negative (NEGATIVE) Urine Bilirubin Negative (NEGATIVE) Urine Urobilinogen Normalmg/dL (NORMAL) Urine Leukocyte Esterase Negative (NEGATIVE) Urine RBC 0-2/hpf (0-2) Urine WBC 0-5/hpf (0-5) Urine Epithelial Cells Occasional/hpf (NONE-MOD) Urine Crystals None seen (NONE SEEN) Urine Bacteria Few/hpf (NONE-FEW) Urine Hyaline Casts None/lpf (NONE) Urine Granular Casts None seen (NONE SEEN) Urine Waxy Casts None seen (NONE SEEN) Urine Red Blood Cell Casts None seen (NONE SEEN) Urine White Blood Cell Casts None seen (NONE SEEN) Urine Mucus None seen (None Seen) Urine Trichomonas None seen (NONE SEEN) Urine Yeast None (NONE SEEN) Urinalysis Comment None Urine Culture Reflexed Not indicated Result Diagram: 09/17/16 0855 09/17/16 0855 PMH Hx of recurrent pulmonary embolism (2011,2012), chronically anticoagulated on warfarin Factor V Leiden deficiency Aortic stenosis Hypertension Hyperlipidemia Coronary disease with LAD and RCA obstructive disease Type II diabetes COPD with moderate obstructive disease on pulmonary function tests Last pre-op cath w/stent to RCA 12/07/[address] Chan s/p valve replacement (TAVR) at [place] (bioprosthetic) complicated by pseudoaneurysm repair 01/03/2016 GI bleed and AVM as noted in H&P Family History Denies any family history of cancer Social History Hx Alcohol Use: No ("very seldom") Hx Substance Use: No Smoking Status: Former Smoker Exam Vital Signs Vital Sign - Last Date Time Temp Pulse Resp B/P Pulse Ox O2 Delivery O2 Flow Rate FiO2 09/17/16 17:54 37.1 75 18 169/67 95 09/17/16 13:05 Room Air General: Alert, Oriented X3, Cooperative, No Acute Distress Head: Normal Eyes: PERRLA, EOMI, Scleral Anicteric Nose: Mucous Membr Moist/[place] Mouth: Mucous Membr Moist/[place] Neck: Supple Chest & Lungs: Chest Wall Normal, Clear to auscultation & percussion Cardiovascular: Regular Rate/Rhythm Abdomen: Non-tender, Non-distended, Normoactive bowel tones, Soft Extremities: No cyanosis/clubbing/edma bilat, Other (chronic venous insufficiency skin changes in LE bilat) Neurological: Grossly Neurologically Intact, Cranial Nerves 2-12 Intact, Normal Speech Lab and Diagnostics Result Diagram: 09/17/16 0855 09/17/16 0855 Assessment & Plan 81-year-old male anticoagulated on Warfarin with a history of factor V leiden, pulmonary embolism, aortic stenosis s/p TAVR, CAD s/p stenting, diabetes mellitus type 2 and COPD 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 # Acute anemia, present on admission. ongoing for past week -Etiology uncertain but likely upper GI bleed. -Trend H/H q8h -Transfuse pRBC if Hgb<8 -Protonix 40 IV bid -Followup with GI consult recommendations -Hold home warfarin this evening, hold FFP reversal of INR, due to patient's significant cardiac history and INR only slightly elevated. -Repeat INR in the morning. -NPO after midnight for possible procedure # History of pulmonary embolism, present on admission. Ongoing -Patient with factor V leiden and chronically anticoagulated on Warfarin. -Will hold evening dose of Warfarin, repeat INR in morning # Acute on chronic hypertension, present on admission. Ongoing -Continue home medications # Chronic Hyperlipidemia, present on admission. Ongoing -Continue home statin when GI bleed stable # History of CAD s/p stents, present on admission. -Hold Plavix for tonight and consider resuming in am if OK by GI # Diabetes mellitus, type 2. chronic. present on admission. Ongoing. -Correctional insulin while inpatient # COPD, chronic. present on admission. stable -Continue home inhalers Expected length of hospital stay is less than 2 midnights at this time GI Prophylaxis: Proton Pump Inhibitor VTE Prophylaxis: SCDs Resuscitation Status: CPR: Attempt Resuscitation (discussed and verified with patient) Time spent 60 min Eddy Aviles Sep 17, 2016 18:08
[2016-09-17] MEDS ORDERED: Dextrose 10% 250 ML IV PRN (18:45)
[2016-09-17] MEDS: Fluticasone-Salmererol 250-50 Inhaler INHALATION SCH (21:54)
[2016-09-17] MEDS: Insulin Human REGular 300 Unit/3 mL Inj SUBQ SCH (21:57)
--- NOTE | 2016-09-17 23:01 | CONS ---
[address] [address] CONSULTATION REPORT PATIENT: LANDON RICH : 1935 MR#: [id number] ADMIT: 09/17/2016 JOB ID: [id number] DATE OF SERVICE: 09/17/2016 REASON FOR HOSPITAL ADMISSION: Anemia. HISTORY OF PRESENTING ILLNESS: The patient is a 81-year-old gentleman who is on warfarin for Factor V Leiden and has a history of pulmonary embolism. Also on Plavix for coronary stenting. He was admitted to the hospital back in early August for symptomatic anemia. Prior to his admission, at his doctor's office he was noted to have a hemoglobin of 6.9, and he was symptomatic with shortness of breath. He also stated at that time that he was having dark, tarry stools. He then subsequently underwent an upper endoscopy and a colonoscopy and upper endoscopy revealed normal esophageal mucosa, normal gastric mucosa without any ulcers, erosions. Cardia and fundus appeared unremarkable. In the fourth portion of the duodenum, and maybe possibly the proximal jejunum, Dr. Kennedy saw two 7 mm AVMs which were not bleeding. He then proceeded to colonoscopy. Colonoscopy revealed multiple polyps in the right colon, the largest one being approximately 1 cm in the transverse colon, diverticula, hemorrhoids. He was then subsequently set up for a capsule endoscopy which he had done today and capsule endoscopy has yet to be read but the patient was admitted to the hospital following capsule ingestion secondary to complaints of what he describes as melena. He, however, describes the stools as performed black stools. He denies any abdominal pain, nausea, vomiting. He said he is currently still taking Coumadin. PAST MEDICAL HISTORY: Significant for Factor V Leiden deficiency, history of pulmonary embolism, aortic stenosis, hypertension, hyperlipidemia, coronary artery disease, type 2 diabetes, COPD. He has had cardiac cath with stent placements. He has had valve replacement, bioprosthetic, complicated by pseudoaneurysm repair. FAMILY HISTORY: Noncontributory. SOCIAL HISTORY: Denies any tobacco use and very rarely drinks alcohol. HOME MEDICATIONS: Include amlodipine, atorvastatin, cephalexin, clopidogrel, hydralazine, hydrochlorothiazide, losartan, metoprolol, pantoprazole 40 mg daily, warfarin, acetaminophen, budesonide and nitroglycerin. ALLERGIES: He has no known drug allergies. REVIEW OF SYSTEMS: Essentially negative except for dyspnea with minimal exertion and cold intolerance. HOSPITAL MEDICATIONS: Include metoprolol, hydralazine ,pantoprazole, insulin, fluticasone, Maalox as needed, Zofran as needed, Senokot as needed, MiraLAX as needed, Tylenol as needed, morphine as needed, Norvasc as needed, Cozaar 200 mg daily. PHYSICAL EXAMINATION: His temperature is 37.1, his blood pressure is 169/67, respiratory rate is 18, O2 saturation 95%, heart rate is 75. Generally, he is an elderly-appearing gentleman in no apparent distress, who is sitting on the bedside chair and is oriented to person, place, and time and answers questions appropriately. HEENT: He does have a mild pallor. Oropharynx is clear. Chest exam: Clear to auscultation bilaterally. Cardiovascular exam: S1, S2 heard. Abdomen is obese, soft, nontender, nondistended, without hepatosplenomegaly. Extremities: He does have some darkish discoloration of the left lower extremity, and there is some pitting edema bilaterally. LABORATORY DATA: Does reveal a white blood cell count of 7.1, hemoglobin of 8.5, hematocrit 27.4 with an MCV of 95.5. His platelet count is 256. His repeat blood count approximately 10 hours later shows a hemoglobin 8.6, hematocrit of 28, his PT is 26.1, INR is 2.4. His comprehensive metabolic profile is normal except for mildly elevated glucose. ASSESSMENT AND PLAN: A 81-year-old gentleman presenting with symptomatic anemia who has been admitted to the hospital by his diving supervisor for further monitoring. I have spoken with Dr. Kennedy and he is to read the capsule endoscopy today and pending results of that further plans to be dictated by him. In the meantime, I would continue to follow his H and H. As he is not having any overt bleeding, I think it is okay to continue his anticoagulation considering his multiple cor morbidities. If he should start having active bleeding, we then recommend reversing his warfarin and then will follow up on results of his capsule endoscopy. Would continue clear liquid diet for now. Thank you for allowing me to participate in this patient's care. If you have any further questions, please do not hesitate to contact me.
[2016-09-18] VITALS (9 sets, daily range): BP systolic 103–176; BP diastolic 37–73; PULSE 53–65; RESP 12–20; O2SAT 95–99
[2016-09-18 06:41] LABS: Mean Corpuscular Hemoglobin 28.4 pg (27.0-35.0); Mean Corpuscular Volume 93.7 fL (81-100)
[2016-09-18] MEDS: Insulin Human REGular 300 Unit/3 mL Inj SUBQ SCH ×4 (07:30→20:29)
[2016-09-18] MEDS: Pantoprazole 4 mg/mL 10 mL Inj IVPUSH SCH ×2 (08:56→18:07)
[2016-09-18] MEDS: Fluticasone-Salmererol 250-50 Inhaler INHALATION SCH ×2 (08:56→20:28)
--- NOTE | 2016-09-18 09:14 | NUR ---
Social Work-initial assessment: Data:See initial assessment. Pt is a 81 y/o male who was admitted on 09/17/16 for GI Bleed per H&P. Pt's insurance is [employer] and PCP is Edison Mott MD. EMR Reviewed. SW met with pt at bedside to discuss discharge planning, SW role explained. Pt is alert and oriented x3. Pt resides at home with his in [place] where he remains independent with ADLS. Pt occasionally uses a walking stick for ambulation. Pt drives and has no HH or SNF history. 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 SW discussed DPOA/ advanced directive, pt has not completed this and is not interested in the paperwork. Pt does not anticipate any discharge needs. Pt states his daughter Loreta [phone] will provide transport home. SW provided phone number and plan on white board in room. No anticipated discharge needs. SW will continue to follow if needs arise. Assessment:Pt who is independent at baseline. Plan:Pt to discharge home when medically stable via POV. No anticipated discharge needs. SW will continue to follow if needs arise. VEGA Olmedo Addendum: 09/18/16 at 0917 by NILES FELIZ Amended: Links added.
[2016-09-18] MEDS: MeTOProlol XL 25 mg ER24 Tablet PO SCH (11:23)
--- NOTE | 2016-09-18 14:26 | NUR ---
Case Management: LEMON and Medicare Part D pamphlet delivered and explained to patient. Signed original placed in chart. Copy left at bedside. Grace Solares RN
[2016-09-18] MEDS ORDERED: Propofol 10,000 mCg/mL 20 mL Inj ONE (14:39)
--- NOTE | 2016-09-18 15:07 | PCM.PNMED ---
Subjective Date of Service Sep 18, 2016 Subjective no further BM since yesterday. denies any abdominal pain, n/v. no lightheadedness Exam Vital Signs Vital Sign - Last Date Time Temp Pulse Resp B/P Pulse Ox O2 Delivery O2 Flow Rate FiO2 09/18/16 10:50 65 09/18/16 10:14 36.6 18 157/65 96 Room Air Intake and Output 09/17/16 09/17/16 09/18/16 Cumulative From/Thru 15:00 23:00 07:00 09/17/16 08:31 - 09/18/16 06:46 Intake Total 321 ml 0 ml 700 ml 1021 ml Output Total 150 ml 650 ml 800 ml Balance 321 ml -150 ml 50 ml 221 ml Intake Oral 0 ml 700 ml 700 ml IV Total 321 ml 321 ml Output Urine Total 150 ml 650 ml 800 ml # Voids 3 3 # Bowel Movements 1 1 Exam General: Alert, Oriented X3, Cooperative, No Acute Distress Head: Normal Eyes: PERRLA, EOMI, Scleral Anicteric Nose: Mucous Membr Moist/[place] Mouth: Mucous Membr Moist/[place] Neck: Supple Chest & Lungs: Chest Wall Normal, Clear to auscultation bilat Cardiovascular: Regular Rate/Rhythm Abdomen: Non-tender, Non-distended, Normoactive bowel tones, Soft Extremities: No cyanosis/clubbing/edema bilat, Other (chronic venous insufficiency skin changes in LE bilat) Neurological: Grossly Neurologically Intact, Cranial Nerves 2-12 Intact, Normal Speech IVs and Medications Medications Reviewed: Medications were reviewed in detail Lab and Diagnostics Result Diagram: 09/18/16 0545 09/17/16 0855 Assessment & Plan 81-year-old male anticoagulated on Warfarin with a history of factor V leiden, pulmonary embolism, aortic stenosis s/p TAVR, CAD s/p stenting, diabetes mellitus type 2 and COPD 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 # Acute anemia, present on admission. ongoing for past week. Stable -Etiology uncertain but likely upper GI bleed. -Trend H/H q8h. stable so far -Transfuse pRBC if Hgb<8 -Protonix 40 IV bid -Followup with GI consult recommendations -Resume Warfarin when OK by GI -Repeat INR in the morning. -Tentative plan for EGD later today # History of pulmonary embolism, present on admission. Ongoing -Patient with factor V leiden and chronically anticoagulated on Warfarin. -Resume Warfarin when OK by GI -Repeat INR in morning # Acute on chronic hypertension, present on admission. Ongoing -Continue home medications # Chronic Hyperlipidemia, present on admission. Ongoing -Continue home statin when GI bleed stable # History of CAD s/p stents, present on admission. -Resume Plavix when OK by GI # Diabetes mellitus, type 2. chronic. present on admission. Ongoing. -Correctional insulin while inpatient # COPD, chronic. present on admission. stable -Continue home inhalers Dispo: 1-2 days pending GI recs GI Prophylaxis: Proton Pump Inhibitor VTE Prophylaxis: SCDs Resuscitation Status: CPR: Attempt Resuscitation (discussed and verified with patient) Eddy Aviles Sep 18, 2016 15:07
--- NOTE | 2016-09-18 16:14 | NUR ---
Endoscopy NPO this AM for procedure. Pt escorted off floor via gurney to endo A&O and SL. Tele notified and report given. Lab notified to transfer for protime prior to procedure. Addendum: 09/18/16 at 1800 by LORAINE BARTH RN Returned to room, A&O, advance diet as tolerated.
[2016-09-18 16:33] LABS: INR 1.64 ratio
--- NOTE | 2016-09-18 17:14 | PCM.HPANE ---
Patient Data Surgeon Admitting Provider:Eddy Aviles Attending Provider:Eddy Aviles Primary Care Physician:Edison Mott MD Other Provider: Reason for Visit Gi Bleed Ht/WT & BMI Height (Feet): 5 Height (Inches): 10.00 Weight (Kilograms): 110.700 Body Mass Index 34.00 Allergies Coded Allergies: No Known Allergies (Unverified , 09/17/16) Past Anesthesia History Anesthesia History: Denies:: Abnormal Airway, Anesthesia Reactions, Difficult Intubation, Fam Anesthesia Reaction, Fam Malignant Hypertherm, Malignant Hyperthermia Diabetes History Hx Diabetes?: No Current Bedside Blood Glucose: 127 MRSA MRSA: No Medications Blood Thinner: Coumadin, Plavix Active Scripts Hydrochlorothiazide 12.5 Mg Zvrpqk13.5 Mg PO DAILY #30 TABLET Ref 0 Prov:DaveMisa DO 08/08/16 Allopurinol 100 Mg Wyxnjz500 Mg PO DAILY #30 TABLET Prov:Misa Acosta DO 08/08/16 Ferrous Gluconate 324 Mg Cfdery214 Mg PO DAILYWM #30 TABLET Prov:Misa Acosta DO 08/08/16 Reported Medications Ascorbate Calcium (Vitamin C)500 Mg Tbrykp797 Mg PO BID 09/17/16 Warfarin Sodium 5 Mg Tablet5 Mg PO , 30 Days Ref 0 09/17/16 Budesonide/Formoterol 160-4.5 mcg Inh (Symbicort 160-4.5 mcg Inh)120 Puff Inhaler1 Puff INHALATION BID #1 INHALER Ref 0 09/17/16 Amlodipine 5 Mg Brewko34 Mg PO DAILY Ref 0 09/17/16 Clopidogrel 75 Mg Rkrgoq88 Mg PO DAILY Ref 0 09/17/16 Hydralazine 50 Mg Xwqiak771 Mg PO TIDWM Ref 0 09/17/16 Nitroglycerin SL 0.4 Mg Tab.subl0.4 Mg SL PRN chest pain 09/07/16 Warfarin Sodium 5 Mg Tablet7.5 Mg PO , , Fri, , [place] 30 Days Ref 0 08/05/[address] 40 Mg Tablet.dr40 Mg PO QAM Ref 0 06/28/16 Metoprolol Succinate ER 25 Mg Tab.er.24h25 Mg PO DAILY 06/28/16 Losartan Potassium 100 Mg Nmahtp819 Mg PO DAILY 06/28/16 Atorvastatin (Lipitor)10 Mg Tab10 Mg PO HS 06/28/16 Acetaminophen 500 Mg Tablet1,000 Mg PO Q6H PRN For Pain 09/05/15 Discontinued Reported Medications Warfarin Sodium 7.5 Mg Tablet7.5 Mg PO DAILY EXCEPT TUE/DAVID 30 Days Ref 0 08/05/16 Hydralazine 100 Mg Tetkgo467 Mg PO TID 06/28/16 Discontinued Scripts Docusate Sodium (Colace)100 Mg Ximbsdl700 Mg PO DAILY PRN For Constipation #30 CAPSULE Prov:Misa Acosta DO 08/08/16 [Ascorbic Acid] (Vitamin C)500 MG TABLET No Conflict Ddliy130 Mg PO DAILY #30 Prov:Misa Acosta DO 08/08/16 History History of ENT Problems?: Yes HEENT History: Positive for:: Cataracts (Left Apr 2015, Right eye 20 years ago ) Denies:: Abnormal Airway Difficult Intubation Dysphagia Glaucoma Hearing Problem Sinus Problem TMJ Denture Type: Full- Upper Full- Lower Teeth Condition: No Teeth Hx of Heart Problems?: Yes Cardiovascular History: Positive for:: Atrial Fibrillation Cardiac Surgery (Heart cath with stents, TAVR) Edema (chronic LE edema) Heart Murmur () Hypertension Irregular Heartbeat (LBBB) Denies:: AICD Chest Pain Congestive Heart Failure Pacemaker Valvular Heart Disease Other History/Comments AORTIC STENOSIS S/O tavr Hx of Respiratory Problem?: Yes Respiratory History: Positive for:: COPD Denies:: Asthma Chest Surgery Cough Dyspnea Hemoptysis Pneumonia Tuberculosis Hx Neurologic Problems?: No Neurological History: Denies:: Alzheimer's Disease CVA Dementia Dizziness Headaches Parkinson's Disease Seizures Hx of GI Problems?: Yes Other History/Comment Multiple Gi bleeds with anemia, suspected small bowel bleed based on camera study Hx of Problems?: Yes Genitourinary History: Positive for:: Kidney Stones Denies:: HX of Hemodialysis Urinary Tract Infection HX of Peritoneal Dialysis: No Male Hx: Denies:: Prostate Problems Scrotal Mass Testicular Surgery Hx Musculoskeletal Problems?: Yes Musculoskeletal History: Positive for:: Back Injury (lower back surgery) Denies:: Joint Replacement Hx of Psycho/Social Problems?: No Psycho Social History: Denies:: Anxiety Bipolar Disorder Hx Depression Suicide Attempt Hx Surgeries?: Yes (APPY,STENTS,LOWER BACK,) Hx Any Other Health Problems?: Yes Other History: Positive for:: Hospitalization Denies:: Cancer Thyroid Disease History Blood Transfusions: Positive for:: Accept Blood Products? Blood Transfusions Hx Diabetes: NoBedside Blood Glucose: 127 Hx Alcohol Use: No ("very seldom")Hx Substance Use: No Smoking Status: Former Smoker Have You Smoked inLast 12 mo: Yes Stop/Bang Treated for Sleep Apnea?: No Do You Have a CPAP Machine?: No S-Snoring: Do You Snore Loudly: No T-Tired: feel tired, fatigued: Yes O-Obsered: Observed not breath: No P-Blood Pressure: treated: Yes B- Body Mass Index > 35 kg/m2: No A- Age over 50: Yes N- Neck Large Circumference: No G- Gender Male: Yes VIRI Total Score: 4 Risk Assessment Category Category 1A: Patient has history of documented sleep apnea, and HAS NOT received any narcotic, sedative or anesthesia administration during this stay. Category 1B: Patient has history of documented sleep apnea, and HAS received any narcotic , sedative or anesthesia administration during this stay Category 2: Patient has SUSPECTED Obstructive Sleep Apnea, and HAS received any narcotic , sedative or anesthesia administration during this stay. Category 3: Patient has SUSPECTED Obstructive Sleep Apnea and HAS NOT received narcotic, sedative or anesthesia administration during this stay. Category 4: Outpatient in Procedural Areas with known sleep apnea or who screen positive for High Risk via the STOP/BANG questionnaire. Exam Exam Vital Signs Vital Signs Date Time Temp Pulse Resp B/P Pulse Ox O2 Delivery O2 Flow Rate FiO2 09/18/16 16:21 36.6 59 18 156/65 99 Room Air 09/18/16 10:50 65 09/18/16 10:14 36.6 59 18 157/65 96 Room Air General Appearance: Alert, Oriented X3, Cooperative, No Acute Distress HEENT/AIRWAY: MP 2 Lungs: Clear to Auscultation Heart: Exam Unremarkable Meds/Labs/Diagnostics Admission Meds Current Medications Amlodipine Besylate (Norvasc) 10 mg DAILY PO Last administered on 09/18/16 11: 23; Start 09/17/16 at 17:50 Salmeterol Xinafoate/ Fluticasone (Advair 250-50) 1 puff BID INHALATION Last administered on 09/18/16 08:56; Start 09/17/16 at 20:30 Hydralazine HCl (Apresoline) 100 mg TIDWM PO Last administered on 09/18/16 11: 23; Start 09/18/16 at 08:00 Losartan Potassium (Cozaar) 200 mg DAILY PO Last administered on 09/18/16 11: 28; Start 09/17/16 at 17:50 Metoprolol Succinate (Toprol XL) 25 mg DAILY PO Last administered on 09/18/16 11:23; Start 09/18/16 at 08:30 Pantoprazole (Protonix Inj) 40 mg BIDAC IVPUSH Last administered on 09/18/16 08:56; Start 09/18/16 at 07:30 Bedside Blood Glucose: 127 Labs Test 09/17/16 08:55 09/17/16 16:04 09/18/16 05:45 09/18/16 16:05 Neutrophils (%) (Auto) 59.7% (40-74) Lymphocytes (%) (Auto) 24.7% (14-46) Monocytes (%) (Auto) 11.0% (4-12) Eosinophils (%) (Auto) 3.7% (0-5) Basophils (%) (Auto) 0.3% (0-3) Sodium Level 139mEq/L (134-144) Potassium Level 4.3mEq/L (3.5-5.2) Chloride Level 104mEq/L (97-108) Carbon Dioxide Level 24mmol/L (18-29) Blood Urea Nitrogen 27mg/dL (8-27) Creatinine 1.22mg/dL (0.76-1.27) Estimat Glomerular Filtration Rate 61mL/min (>59) Glucose Level 132mg/dL (60-99) Calcium Level 9.2mg/dL (8.5-10.1) Total Bilirubin 0.5mg/dL (0.0-1.2) Aspartate Amino Transf (AST/SGOT) 21U/L (0-50) Alanine Aminotransferase (ALT/SGPT) 17U/L (0-44) Alkaline Phosphatase 61U/L (25-160) Total Protein 7.1g/dL (6.4-8.4) Albumin 3.8g/dL (3.4-5.0) Hold Kaur Top Tube Received (Received) Urine Color Yellow (YELLOW) Urine Appearance Clear (CLEAR,HAZY) Urine pH 5.5 (5.0-8.0) Urine Specific [place] 1.020 (1.003-1.035) Urine Protein Tracemg/dL (NEG,TRACE) Urine Glucose (UA) Negativemg/dL (NEGATIVE) Urine Ketones Negativemg/dL (NEGATIVE) Urine Occult Blood Negative (NEGATIVE) Urine Nitrite Negative (NEGATIVE) Urine Bilirubin Negative (NEGATIVE) Urine Urobilinogen Normalmg/dL (NORMAL) Urine Leukocyte Esterase Negative (NEGATIVE) Urine RBC 0-2/hpf (0-2) Urine WBC 0-5/hpf (0-5) Urine Epithelial Cells Occasional/hpf (NONE-MOD) Urine Crystals None seen (NONE SEEN) Urine Bacteria Few/hpf (NONE-FEW) Urine Hyaline Casts None/lpf (NONE) Urine Granular Casts None seen (NONE SEEN) Urine Waxy Casts None seen (NONE SEEN) Urine Red Blood Cell Casts None seen (NONE SEEN) Urine White Blood Cell Casts None seen (NONE SEEN) Urine Mucus None seen (None Seen) Urine Trichomonas None seen (NONE SEEN) Urine Yeast None (NONE SEEN) Urinalysis Comment None Urine Culture Reflexed Not indicated White Blood Count 6.4th/mm3 (3.8-10.1) Red Blood Count 3.03mil/mm3 (4.40-5.80) Hemoglobin 8.6g/dL (13.8-17.2) Hematocrit 28.4% (41.0-50.0) Mean Corpuscular Volume 93.7fL (81-100) Mean Corpuscular Hemoglobin 28.4pg (27.0-35.0) Mean Corpuscular Hemoglobin Concent 30.3% (32.0-37.0) Red Cell Distribution Width 18.3% (12.3-15.4) Platelet Count 248bil/L (150-400) Prothrombin Time 17.7sec (8.1-12.5) Prothromb Time International Ratio 1.64ratio Plan Impression Patient chart reviewed, patient interviewed and anesthestic plan with risks, benefits, and alternatives discussed, and informed consent obtained. ASA Physical Status: ASA4 Life Threatening Anesthetic Plan: MAC Bene/Risks/Altern/Consents: Yes HP Complete Prior to Induction: Yes Gennaro Aguiar MD Sep 18, 2016 17:14
[2016-09-18] MEDS ORDERED: Lactated Ringer's 1,000 ML IV ONE ×2 (17:23→17:40)
--- NOTE | 2016-09-18 17:40 | PCM.ENDEGD ---
EGD Date of Service: Sep 18, 2016 Physician Josué Kennedy Pre Procedure Diagnosis: Anemia. Possible ulcer during PillCam Post Procedure Dx & Findings: Antral deformity and healing erosion Procedure Esophagogastroduodenoscopy PROCEDURE IN DETAIL: After proper sedation, Olympus video endoscope was inserted into patient's mouth and esophagus was successfully intubated. Scope introduced esophagus. Esophagus showed normal shiny whitish mucosa consistent with squamous cell component. Z line was intact at 45 cm from the incisors. Stomach further events to the stomach. Stomach showed normal shiny mucosa with normal appearing rugae folds without any ulcer mass erosion. In the antrum, there was a mild deformity with some swelling and there was a healing ulcer. This appeared to be almost healed. Cardia fundus body antrum pylorus were all visualized. Retroflexion was done. Stomach was easily inflated and deflatable using air. Scope further events to the distal duodenum. Duodenum revealed normal villous structures with normal appearing folds without any mass ulcer erosion. On the first pass of the duodenum, there was a swelling and 1 mm erosion. Impression Small bowel 1 mm erosion Antrum with a area that appears to be a healed ulcer No clear source Recommendation Resume diet Please have him follow-up at [facility] GI Presedation Assessment Risks and Benefits Informed consent was obtained from the patient after all risks and benefits including but not limited to drug reaction, infection, pain, bleeding, perforation, as well as alternatives were discussed. Patient monitoring Continuous pulse oximetry, cardiac monitoring, blood pressure monitoring, IV access, and oxygen at 2L per nasal cannula. Complications There were no periprocedural complications identified. Post Procedure Plan Post Procedure Recommendations 1. Restrict activities today. 2. Resume normal activities in the morning. 3. Resume medications. 4. GERD behavioral modification: - Avoid fatty, acidic, spicy, large meals - Do not lie down after meals - Do not eat or drink anything for at least 2 1/2 hours before going to bed at night - Discontinue tobacco and alcohol - Decrease or avoid caffeine - Avoid chocolate and mints - Decrease weight - Avoid aspirin and non steroidal anti-inflammatory agents (NSAID) such as Aleve, Advil, Mobic, Naproxen, Ibuprofen, etc 5. Add proton pump inhibitor. Take 30 minutes before 1st meal of the day. 6. Patient informed of normal post procedure side effects as bloating, drowsiness, blood streaking in the stool 7. If gastric biopsy reveal H.pylori, continue with appropriate treatment 8. If small bowel biopsy reveals celiac, continue with appropriate treatment 9. Please don't hesitate to call me with any questions Josué Kennedy MD Sep 18, 2016 17:40
--- NOTE | 2016-09-18 17:42 | PCM.ANEP1 ---
Post Anesthesia PACU Phase 1 Assessment Vital Signs Vital Signs Date Time Temp Pulse Resp B/P Pulse Ox O2 Delivery O2 Flow Rate FiO2 09/18/16 17:38 55 12 103/37 99 Room Air 09/18/16 16:21 36.6 59 18 156/65 99 Room Air 09/18/16 10:50 65 09/18/16 10:14 36.6 59 18 157/65 96 Room Air Anesthetic Administered: MAC Level of Alertness: Awake, talking FISHER's with Equal Strength: Yes Pain: No Nausea or Vomiting: No CV Function & Hydration Stable: Yes Airway Device: Oxygen Delivery: Room Air Lungs: Clear to Auscultation Dermatome Level: Full Sensation PACU Phase 2 Assessment Complications: No Follow up Care: N/A Patient Instructions Provided: N/A Gennaro Aguiar MD Sep 18, 2016 17:42
[2016-09-19] VITALS (9 sets, daily range): BP systolic 123–160; BP diastolic 51–66; PULSE 55–74; RESP 16–20; O2SAT 95–98
[2016-09-19 06:41] LABS: INR 1.47 ratio
[2016-09-19] MEDS: Insulin Human REGular 300 Unit/3 mL Inj SUBQ SCH ×4 (07:30→22:00)
[2016-09-19] MEDS: Fluticasone-Salmererol 250-50 Inhaler INHALATION SCH ×2 (08:04→20:33)
[2016-09-19] MEDS: Pantoprazole 4 mg/mL 10 mL Inj IVPUSH SCH (08:04)
[2016-09-19] MEDS: MeTOProlol XL 25 mg ER24 Tablet PO SCH (08:47)
[2016-09-19] MEDS ORDERED: Heparin 5,000 Unit/mL Inj IVPUSH PRN (10:50)
--- NOTE | 2016-09-19 12:04 | PCM.CONPHA ---
Subjective Date of Service: Sep 19, 2016 Warfarin dosing Reason for Pharmacy Consult: Anticoagulation Management Objective Vital Signs Date Time Temp Pulse Resp B/P Pulse Ox O2 Delivery O2 Flow Rate FiO2 09/19/16 08:59 36.9 63 19 123/55 96 Room Air 09/19/16 06:10 55 09/19/16 04:41 37.0 58 20 160/66 97 Room Air 09/19/16 02:41 37.2 58 20 152/65 98 Room Air 09/18/16 23:01 37.2 62 20 129/47 95 Room Air 09/18/16 18:04 36.5 56 20 176/73 99 Room Air 09/18/16 17:43 57 12 126/48 98 Room Air 09/18/16 17:42 Room Air 09/18/16 17:38 55 12 103/37 99 Room Air 09/18/16 16:21 36.6 59 18 156/65 99 Room Air Intake and Output 09/17/16 09/18/16 09/19/16 00:00 00:00 00:00 Intake Total 321 ml 1460 ml Output Total 150 ml 650 ml Balance 171 ml 810 ml Weight (Kilograms): 110.700 Height (Feet): 5 Height (Inches): 10.00 Test 09/17/16 08:55 09/17/16 16:04 09/18/16 05:45 09/19/16 05:45 Neutrophils (%) (Auto) 59.7% (40-74) Lymphocytes (%) (Auto) 24.7% (14-46) Monocytes (%) (Auto) 11.0% (4-12) Eosinophils (%) (Auto) 3.7% (0-5) Basophils (%) (Auto) 0.3% (0-3) Sodium Level 139mEq/L (134-144) Potassium Level 4.3mEq/L (3.5-5.2) Chloride Level 104mEq/L (97-108) Carbon Dioxide Level 24mmol/L (18-29) Blood Urea Nitrogen 27mg/dL (8-27) Creatinine 1.22mg/dL (0.76-1.27) Estimat Glomerular Filtration Rate 61mL/min (>59) Glucose Level 132mg/dL (60-99) Calcium Level 9.2mg/dL (8.5-10.1) Total Bilirubin 0.5mg/dL (0.0-1.2) Aspartate Amino Transf (AST/SGOT) 21U/L (0-50) Alanine Aminotransferase (ALT/SGPT) 17U/L (0-44) Alkaline Phosphatase 61U/L (25-160) Total Protein 7.1g/dL (6.4-8.4) Albumin 3.8g/dL (3.4-5.0) Hold Kaur Top Tube Received (Received) Urine Color Yellow (YELLOW) Urine Appearance Clear (CLEAR,HAZY) Urine pH 5.5 (5.0-8.0) Urine Specific [place] 1.020 (1.003-1.035) Urine Protein Tracemg/dL (NEG,TRACE) Urine Glucose (UA) Negativemg/dL (NEGATIVE) Urine Ketones Negativemg/dL (NEGATIVE) Urine Occult Blood Negative (NEGATIVE) Urine Nitrite Negative (NEGATIVE) Urine Bilirubin Negative (NEGATIVE) Urine Urobilinogen Normalmg/dL (NORMAL) Urine Leukocyte Esterase Negative (NEGATIVE) Urine RBC 0-2/hpf (0-2) Urine WBC 0-5/hpf (0-5) Urine Epithelial Cells Occasional/hpf (NONE-MOD) Urine Crystals None seen (NONE SEEN) Urine Bacteria Few/hpf (NONE-FEW) Urine Hyaline Casts None/lpf (NONE) Urine Granular Casts None seen (NONE SEEN) Urine Waxy Casts None seen (NONE SEEN) Urine Red Blood Cell Casts None seen (NONE SEEN) Urine White Blood Cell Casts None seen (NONE SEEN) Urine Mucus None seen (None Seen) Urine Trichomonas None seen (NONE SEEN) Urine Yeast None (NONE SEEN) Urinalysis Comment None Urine Culture Reflexed Not indicated White Blood Count 6.4th/mm3 (3.8-10.1) Red Blood Count 3.03mil/mm3 (4.40-5.80) Mean Corpuscular Volume 93.7fL (81-100) Mean Corpuscular Hemoglobin 28.4pg (27.0-35.0) Mean Corpuscular Hemoglobin Concent 30.3% (32.0-37.0) Red Cell Distribution Width 18.3% (12.3-15.4) Platelet Count 248bil/L (150-400) Hemoglobin 8.5g/dL (13.8-17.2) Hematocrit 27.7% (41.0-50.0) Prothrombin Time 15.8sec (8.1-12.5) Prothromb Time International Ratio 1.47ratio Assessment/Plan Assessment/Plan Pt is a 81yo male on warfarin for h/o PE and factor IV Liden, admitted for GI bleed. INR on admit was 2.4 (09/17). Pt also started on a heparin gtt, ASA & Plavix. At home pt takes warfarin 7.5 mg Fri, Fri, Fri, Sat & Fri and wafarin 5mg on & . In rounds, Dr. Aviles reported discussing anticoag with patient's GI physician. Risk of pt clotting due to hypercoag state deemed greater than risk of GI bleed becoming more serious. INR today is 1.47. Other labs as above. Will give warfarin 7.5mg PO tonight. INRs are ordered. Pharmacy will follow this pt's warfarin therapy. Terrie Argueta S PharmD Sep 19, 2016 12:04
[2016-09-19] MEDS: Heparin 25K Unit/500mL 0.45 NS 25,000 UNIT in IV Premix 1 EACH IV SCH (12:51)
--- NOTE | 2016-09-19 13:03 | NUR ---
Heparin IV Heparin started at 1250. Initial PTT 28.4. Dose verified with DENISE Clarke. Pt education provided re symptoms to report, pt states to understand. Will continue to monitor.
--- NOTE | 2016-09-19 14:49 | NUR ---
LISANDRO Signed @ 235PM
--- NOTE | 2016-09-19 15:39 | PCM.PNMED ---
Subjective Date of Service Sep 19, 2016 Subjective no further BM since admission. denies any abdominal pain, n/v. no lightheadedness Exam Vital Signs Vital Sign - Last Date Time Temp Pulse Resp B/P Pulse Ox O2 Delivery O2 Flow Rate FiO2 09/19/16 12:18 36.8 72 16 129/51 97 Room Air Intake and Output 09/18/16 09/18/16 09/19/16 Cumulative From/Thru 15:00 23:00 07:00 09/17/16 08:31 - 09/18/16 20:29 Intake Total 60 ml 700 ml 1781 ml Output Total 800 ml Balance 60 ml 700 ml 981 ml Intake Oral 600 ml 1300 ml IV Total 60 ml 100 ml 481 ml Output Urine Total 800 ml # Voids 2 5 # Bowel Movements 1 Exam General: Alert, Oriented X3, Cooperative, No Acute Distress Head: Normal Eyes: PERRLA, EOMI, Scleral Anicteric Nose: Mucous Membr Moist/[place] Mouth: Mucous Membr Moist/[place] Neck: Supple Chest & Lungs: Chest Wall Normal, Clear to auscultation bilat Cardiovascular: Regular Rate/Rhythm Abdomen: Non-tender, Non-distended, Normoactive bowel tones, Soft Extremities: No cyanosis/clubbing/edema bilat, Other (chronic venous insufficiency skin changes in LE bilat) Neurological: Grossly Neurologically Intact, Cranial Nerves 2-12 Intact, Normal Speech IVs and Medications Medications Reviewed: Medications were reviewed in detail Lab and Diagnostics Result Diagram: 09/19/16 0545 09/17/16 0855 Assessment & Plan 81-year-old male anticoagulated on Warfarin with a history of factor V leiden, pulmonary embolism, aortic stenosis s/p TAVR, CAD s/p stenting, diabetes mellitus type 2 and COPD referred from his wireless watcher after initiation of capsule endoscopy and ongoing melena 4 days prior to presentation. # Acute anemia, present on admission. ongoing for past week. Stable -Likely upper GI bleed from small intestine -Trend H/H q8h. stable so far -Transfuse pRBC if Hgb<8 -Protonix 40 bid -Followup with GI consult recommendations -Resume Warfarin and bridge with IV heparin (patient cleared for anticoagulation per discussion with Dr. Kennedy on am of 09/19/16) -Repeat INR in the morning. -If H/H remain stable on therapeutic INR then further followup with GI at [facility] as outpatient otherwise if bleed will need to transfer # History of pulmonary embolism on chronic anticoagulation. -Patient with factor V Leiden and chronically anticoagulated on Warfarin. -Resume Warfarin as noted above -Repeat INR in morning # Acute on chronic hypertension, present on admission. Ongoing -Continue home medications # Chronic Hyperlipidemia, present on admission. Ongoing -Continue home statin when GI bleed stable # History of CAD s/p stents, present on admission. -Continue Plavix # Diabetes mellitus, type 2. chronic. present on admission. Ongoing. -Correctional insulin while inpatient # COPD, chronic. present on admission. stable -Continue home inhalers Dispo: 2-3 days pending therapeutic INR and stable H/H on it GI Prophylaxis: Proton Pump Inhibitor VTE Prophylaxis: SCDs VTE Mechanical Devices: Intermittant Pneumatic CD Resuscitation Status: CPR: Attempt Resuscitation (discussed and verified with patient) Eddy Aviles Sep 19, 2016 15:39
--- NOTE | 2016-09-19 20:01 | PCM.PNMED ---
Subjective Date of Service Sep 19, 2016 Subjective no complaints no melena or hematochezia Exam Vital Signs Vital Sign - Last Date Time Temp Pulse Resp B/P Pulse Ox O2 Delivery O2 Flow Rate FiO2 09/19/16 19:44 36.8 56 18 136/53 96 Room Air Intake and Output 09/18/16 09/18/16 09/19/16 Cumulative From/Thru 15:00 23:00 07:00 09/17/16 08:31 - 09/18/16 20:29 Intake Total 60 ml 700 ml 1781 ml Output Total 800 ml Balance 60 ml 700 ml 981 ml Intake Oral 600 ml 1300 ml IV Total 60 ml 100 ml 481 ml Output Urine Total 800 ml # Voids 2 5 # Bowel Movements 1 Exam Gen- no apparent distress Heent- pallor present resp- clear to auscultation bilateralyy cvs-rrr abd- soft, benign ext- trace edema Lab and Diagnostics Result Diagram: 09/19/16 0545 09/17/16 0855 Assessment & Plan Acute anemia - per EGD yesterday by Dr Kennedy no findings to explain anemia -patient restarted on anticoagulation, if no bleeding then discharge home if bleeding present then transfer to [facility], Referral placed by Dr Kennedy for out patient consultation.with GI at [facility]. -recommend H 2 ruddy daily or PPI daily GI Prophylaxis: Proton Pump Inhibitor VTE Prophylaxis: SCDs VTE Mechanical Devices: Intermittant Pneumatic CD Resuscitation Status: CPR: Attempt Resuscitation (discussed and verified with patient) Hiren Joe MD Sep 19, 2016 20:01
[2016-09-20 00:07] VITALS: BP 136/56; PULSE 54; RESP 18; O2SAT 95
[2016-09-20] MEDS: Heparin 25K Unit/500mL 0.45 NS 25,000 UNIT in IV Premix 1 EACH IV SCH ×2 (01:39→15:00)
--- NOTE | 2016-09-20 02:43 | NUR ---
heparin / noc Continues w/ heparin infusion, currently at 18units/kg/hour (40cc/hour). @ 0050 ptt 91.2. Next ptt ordered for 0650, then 1250. No s/sx of bleeding, no bruising. VS are stable, tele is SB @ 59, IVCD. Denies pain/discomfort. Call light w/in reach. CTM for changes.
[2016-09-20 04:36] VITALS: BP 145/59; PULSE 56; RESP 18; O2SAT 95
[2016-09-20 04:54] LABS: BASOPHILS % (AUTO) 0.1 % (0-3); EOSINOPHILS % (AUTO) 4.5 % (0-5); MONOCYTES % (AUTO) 15.4 % (4-12); Mean Corpuscular Hemoglobin 28.5 pg (27.0-35.0); Mean Corpuscular Volume 93.9 fL (81-100); Platelet Count 233 bil/L (150-400)
[2016-09-20 05:02] LABS: INR 1.32 ratio
[2016-09-20] MEDS: Insulin Human REGular 300 Unit/3 mL Inj SUBQ SCH (07:30)
[2016-09-20 08:52] VITALS: BP 132/59; PULSE 57; RESP 18; O2SAT 97
[2016-09-20] MEDS: Fluticasone-Salmererol 250-50 Inhaler INHALATION SCH ×2 (09:16→21:21)
[2016-09-20] MEDS: Pantoprazole 40 mg ER24 Tablet PO SCH (09:21)
[2016-09-20] MEDS: MeTOProlol XL 25 mg ER24 Tablet PO SCH (09:22)
--- NOTE | 2016-09-20 09:58 | NUR ---
Social Work: Continued d/c planning Data: Pt is on day 3 of hospitalization. EMR reviewed, pt discussed in rounds. states pt likely to d/c in 2 or more days once INR is theraputic. No d/c planning needs anticipated at this time. DIRECTOR OF RESTAURANT will continue to follow if needs arise. Assessment: Pt who is independent at baseline. Plan: Pt will d/c home via POV when medically stable. No d/c planning needs anticipated at this time. DIRECTOR OF RESTAURANT will continue to follow if needs arise. VEGA Rolon
--- NOTE | 2016-09-20 10:30 | PCM.PHAPRO ---
Progress Date of Service: Sep 20, 2016 Warfarin dosing INR=1.32, hct=29, fbqk=977. Pt continues on warfarin therapy for h/o PE. INR subtherapeutic today (goal INR 2-3) probably from warfarin being held for a few days upon admission. Pt continues on heparin gtt. Will give another warfarin 7.5mg PO tonight. INRs are ordered. Pharmacy will follow pt's warfarin therapy. Date Sep 20-Sep INR 1.47 1.32 INR change -0.15 Warf Dose 7.5mg 7.5mg Terrie Argueta S PharmD Sep 20, 2016 10:30
[2016-09-20 12:56] VITALS: BP 125/65; PULSE 60; RESP 19; O2SAT 95
--- NOTE | 2016-09-20 13:56 | NUR ---
[facility] signed
--- NOTE | 2016-09-20 17:08 | PCM.PNMED ---
Subjective Date of Service Sep 20, 2016 Subjective Reports normal BM last night without melena. denies any abdominal pain, n/v. no lightheadedness Exam Vital Signs Vital Sign - Last Date Time Temp Pulse Resp B/P Pulse Ox O2 Delivery O2 Flow Rate FiO2 09/20/16 12:56 36.6 60 19 125/65 95 Room Air Intake and Output 09/19/16 09/19/16 09/20/16 Cumulative From/Thru 15:00 23:00 07:00 09/17/16 08:31 - 09/20/16 05:38 Intake Total 300 ml 981 ml 781 ml 3843 ml Output Total 650 ml 300 ml 1750 ml Balance 300 ml 331 ml 481 ml 2093 ml Intake Oral 300 ml 800 ml 280 ml 2680 ml IV Total 181 ml 501 ml 1163 ml Output Urine Total 650 ml 300 ml 1750 ml # Voids 1 3 1 10 # Bowel Movements 1 Exam General: Alert, Oriented X3, Cooperative, No Acute Distress Head: Normal Eyes: PERRLA, EOMI, Scleral Anicteric Nose: Mucous Membr Moist/[place] Mouth: Mucous Membr Moist/[place] Neck: Supple Chest & Lungs: Chest Wall Normal, Clear to auscultation bilat Cardiovascular: Regular Rate/Rhythm Abdomen: Non-tender, Non-distended, Normoactive bowel tones, Soft Extremities: No cyanosis/clubbing/edema bilat, Other (chronic venous insufficiency skin changes in LE bilat) Neurological: Grossly Neurologically Intact, Cranial Nerves 2-12 Intact, Normal Speech IVs and Medications Medications Reviewed: Medications were reviewed in detail Lab and Diagnostics Result Diagram: 09/20/16 0334 09/17/16 0855 Assessment & Plan 81-year-old male anticoagulated on Warfarin with a history of factor V leiden, pulmonary embolism, aortic stenosis s/p TAVR, CAD s/p stenting, diabetes mellitus type 2 and COPD referred from his [facility] hold after initiation of capsule endoscopy and ongoing melena 4 days prior to presentation. # Acute anemia, present on admission. ongoing for past week. Stable -Likely upper GI bleed from small intestine -Trend H/H q8h. stable so far -Transfuse pRBC if Hgb<8 -Protonix 40 bid -Followup with GI consult recommendations -Continue Warfarin and bridge with IV heparin (patient cleared for anticoagulation per discussion with Dr. Kennedy on am of 09/19/16) -Repeat INR in the morning. -If H/H remain stable on therapeutic INR then further followup with GI at [facility] as outpatient otherwise if bleed will need to transfer # History of pulmonary embolism on chronic anticoagulation. -Patient with factor V Leiden and chronically anticoagulated on Warfarin. -Resume Warfarin as noted above -Repeat INR in morning # Acute on chronic hypertension, present on admission. Ongoing -Continue home medications # Chronic Hyperlipidemia, present on admission. Ongoing -Continue home statin when GI bleed stable # History of CAD s/p stents, present on admission. -Continue Plavix # Diabetes mellitus, type 2. chronic. present on admission. Ongoing. -Correctional insulin while inpatient # COPD, chronic. present on admission. stable -Continue home inhalers Dispo: 2-3 days pending therapeutic INR and stable H/H on it GI Prophylaxis: Proton Pump Inhibitor VTE Prophylaxis: SCDs VTE Mechanical Devices: Intermittant Pneumatic CD Resuscitation Status: CPR: Attempt Resuscitation (discussed and verified with patient) Eddy Aviles Sep 20, 2016 17:08
--- NOTE | 2016-09-20 18:06 | NUR ---
Patient Activity: Aquired Patient care at 1610. Patient has been napping off and on and stated that he is having no pain issues. His Heparin drip continues at 16u/kg/Hr .
[2016-09-20 22:11] VITALS: BP 130/66; PULSE 51; RESP 17; O2SAT 97
--- NOTE | 2016-09-21 03:33 | NUR ---
NOC shift note Patient has remained alert and oriented, independent with ambulation. Denies pain. Wakes easily to voice. Vital signs stable. Heparin infusion at 15 units/kg/hr, last PTT 75.9 with next draw scheduled for 0700. No signs of active bleeding.
[2016-09-21 05:18] VITALS: BP 152/62; PULSE 54; RESP 16; O2SAT 97
[2016-09-21] MEDS: Heparin 25K Unit/500mL 0.45 NS 25,000 UNIT in IV Premix 1 EACH IV SCH (07:09)
[2016-09-21 08:17] LABS: INR 1.38 ratio
[2016-09-21] MEDS: Fluticasone-Salmererol 250-50 Inhaler INHALATION SCH (08:30)
[2016-09-21] MEDS: MeTOProlol XL 25 mg ER24 Tablet PO SCH (08:56)
[2016-09-21] MEDS: Pantoprazole 40 mg ER24 Tablet PO SCH (08:56)
--- NOTE | 2016-09-21 09:00 | NUR ---
LISANDRO signed. VEGA Olmedo
--- NOTE | 2016-09-21 09:11 | PCM.PHAPRO ---
Progress Warfarin dosing Date Sep 20Sep 21 INR 1.47 1.32 1.38 INR change -0.15 0.06 Warf Dose 7.5mg 7.5mg 7.5 Paddy Templeton Pharm.D Sep 21, 2016 09:11
--- NOTE | 2016-09-21 11:34 | NUR ---
AMA Patient was advised by MD and Nurse to stay another night. Patient stated, "I'll take my chances". and continued to request to leave. MD explained this would be against medical advise and explained the risks of leaving. Nurse reviewed risks of leaving informing him of bruising, bleeding, blood clots, plural embolus and even . Patient continued to state he would take his chances. Patient IV removed fully intact and asymptomatic. Patient signed AMA paper work and walked out at 1137.
--- NOTE | 2016-09-21 15:27 | NUR ---
Social Work-discharge: SW updated by RN that pt has left AMA. No other SW needs. VEGA Olmedo
[2016-09-21] MEDS ORDERED: Warfarin 5 MG, Warfarin 2.5 MG PO ONE ×2 (17:00)
--- NOTE | 2016-09-21 17:32 | PCM.DC.MED ---
Discharge Summary Date of Service Sep 21, 2016 Dates of Hospitalization Date of Hospital Admission Sep 17, 2016 at 12:15 Date of Discharge: Sep 21, 2016 Providers: Admitting Physician: Eddy Aviles Primary Care Physician: Edison Mott MD Attending Physician: Eddy Aviles Diagnosis at Time of Discharge Diagnosis at Time of Discharge Patient left AMA # Acute anemia, present on admission. ongoing for past week. Stable -Likely upper GI bleed from small intestine # History of pulmonary embolism on chronic anticoagulation. -Patient with factor V Leiden and chronically anticoagulated on Warfarin. # Sub-therapeutic INR at time of leaving AMA # Acute on chronic hypertension, present on admission. # Chronic Hyperlipidemia, present on admission. # History of CAD s/p stents, present on admission. Stable # Diabetes mellitus, type 2. chronic. present on admission. # COPD, chronic. present on admission. stable Consultations 1. GI Procedures Invasive Procedures EGD Date of Service: Sep 18, 2016 Physician Josué Kennedy Pre Procedure Diagnosis: Anemia. Possible ulcer during PillCam Post Procedure Dx & Findings: Antral deformity and healing erosion Procedure Esophagogastroduodenoscopy PROCEDURE IN DETAIL: After proper sedation, Olympus video endoscope was inserted into patient's mouth and esophagus was successfully intubated. Scope introduced esophagus. Esophagus showed normal shiny whitish mucosa consistent with squamous cell component. Z line was intact at 45 cm from the incisors. Stomach further events to the stomach. Stomach showed normal shiny mucosa with normal appearing rugae folds without any ulcer mass erosion. In the antrum, there was a mild deformity with some swelling and there was a healing ulcer. This appeared to be almost healed. Cardia fundus body antrum pylorus were all visualized. Retroflexion was done. Stomach was easily inflated and deflatable using air. Scope further events to the distal duodenum. Duodenum revealed normal villous structures with normal appearing folds without any mass ulcer erosion. On the first pass of the duodenum, there was a swelling and 1 mm erosion. Impression Small bowel 1 mm erosion Antrum with a area that appears to be a healed ulcer No clear source Recommendation Resume diet Please have him follow-up at [facility] GI Presedation Assessment Risks and Benefits Informed consent was obtained from the patient after all risks and benefits including but not limited to drug reaction, infection, pain, bleeding, perforation, as well as alternatives were discussed. Patient monitoring Continuous pulse oximetry, cardiac monitoring, blood pressure monitoring, IV access, and oxygen at 2L per nasal cannula. Complications There were no periprocedural complications identified. 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 He was discharged home with continued anticoagulation at that time. He has started noticing melanotic stool over the past 4 days and has required additional blood transfusion since his discharge one week ago. He had an appointment with GI specialty (Dr. Kennedy) earlier today who initiated a capsule endoscopy in his office and directed the patient to the ED to be admitted for further observation pending the result of his capsule study. Patient reports occasional lightheadedness but otherwise denies any chest pain, syncope, nausea, or vomiting. He further denies any abdominal pain or hematochezia. Hospital Course # Acute anemia, present on admission. ongoing for past week. Stable -Likely upper GI bleed from small intestine -Trended H/H. stable so far -Protonix continued during this hospital -Continued Warfarin and was bridging with IV heparin (patient cleared for anticoagulation per discussion with Dr. Kennedy on am of 09/19/16) -If H/H remain stable on therapeutic INR then further followup with GI at [facility] as outpatient otherwise if bleed will need to transfer # History of pulmonary embolism on chronic anticoagulation. -INR sub-therapeutic after holding Coumadin on day of admission. -Patient with factor V Leiden and chronically anticoagulated on Warfarin. -Resumed Warfarin as noted above # Acute on chronic hypertension, present on admission. -Continued home medications # Chronic Hyperlipidemia, present on admission. Ongoing -Continued home statin # History of CAD s/p stents, present on admission. -Continued Plavix # Diabetes mellitus, type 2. chronic. present on admission. Ongoing. -Correctional insulin while inpatient # COPD, chronic. present on admission. stable -Continued home inhalers # On 09/21/16 patient decided to leave AMA. Tried to convince patient to stay to get his INR therapeutic and bridge with heparin but patient refused. He expressed clear verbal understanding of the risks of leaving AMA and repeatedly noted "I'll take my chances". Exam Vital Signs (Last) Date Time Temp Pulse Resp B/P Pulse Ox O2 Delivery O2 Flow Rate FiO2 09/21/16 05:18 36.6 54 16 152/62 97 Room Air Exam General: Alert, Oriented X3, No Acute Distress Head: Normal Eyes: PERRLA, EOMI, Scleral Anicteric Nose: Mucous Membr Moist/[place] Mouth: Mucous Membr Moist/[place] Neck: Supple Chest & Lungs: Chest Wall Normal, Clear to auscultation bilat Cardiovascular: Regular Rate/Rhythm Abdomen: Non-tender, Non-distended, Normoactive bowel tones, Soft Neurological: Grossly Neurologically Intact, Cranial Nerves 2-12 Intact, Normal Speech Test 09/17/16 08:55 09/17/16 16:04 09/19/16 05:45 09/20/16 03:34 Sodium Level 139mEq/L (134-144) Potassium Level 4.3mEq/L (3.5-5.2) Chloride Level 104mEq/L (97-108) Carbon Dioxide Level 24mmol/L (18-29) Blood Urea Nitrogen 27mg/dL (8-27) Creatinine 1.22mg/dL (0.76-1.27) Estimat Glomerular Filtration Rate 61mL/min (>59) Glucose Level 132mg/dL (60-99) Calcium Level 9.2mg/dL (8.5-10.1) Total Bilirubin 0.5mg/dL (0.0-1.2) Aspartate Amino Transf (AST/SGOT) 21U/L (0-50) Alanine Aminotransferase (ALT/SGPT) 17U/L (0-44) Alkaline Phosphatase 61U/L (25-160) Total Protein 7.1g/dL (6.4-8.4) Albumin 3.8g/dL (3.4-5.0) Hold Kaur Top Tube Received (Received) Urine Color Yellow (YELLOW) Urine Appearance Clear (CLEAR,HAZY) Urine pH 5.5 (5.0-8.0) Urine Specific [place] 1.020 (1.003-1.035) Urine Protein Tracemg/dL (NEG,TRACE) Urine Glucose (UA) Negativemg/dL (NEGATIVE) Urine Ketones Negativemg/dL (NEGATIVE) Urine Occult Blood Negative (NEGATIVE) Urine Nitrite Negative (NEGATIVE) Urine Bilirubin Negative (NEGATIVE) Urine Urobilinogen Normalmg/dL (NORMAL) Urine Leukocyte Esterase Negative (NEGATIVE) Urine RBC 0-2/hpf (0-2) Urine WBC 0-5/hpf (0-5) Urine Epithelial Cells Occasional/hpf (NONE-MOD) Urine Crystals None seen (NONE SEEN) Urine Bacteria Few/hpf (NONE-FEW) Urine Hyaline Casts None/lpf (NONE) Urine Granular Casts None seen (NONE SEEN) Urine Waxy Casts None seen (NONE SEEN) Urine Red Blood Cell Casts None seen (NONE SEEN) Urine White Blood Cell Casts None seen (NONE SEEN) Urine Mucus None seen (None Seen) Urine Trichomonas None seen (NONE SEEN) Urine Yeast None (NONE SEEN) Urinalysis Comment None Urine Culture Reflexed Not indicated Hemoglobin A1c 5.8% (4.8-5.6) White Blood Count 7.5th/mm3 (3.8-10.1) Red Blood Count 3.09mil/mm3 (4.40-5.80) Mean Corpuscular Volume 93.9fL (81-100) Mean Corpuscular Hemoglobin 28.5pg (27.0-35.0) Mean Corpuscular Hemoglobin Concent 30.3% (32.0-37.0) Red Cell Distribution Width 18.2% (12.3-15.4) Platelet Count 233bil/L (150-400) Neutrophils (%) (Auto) 54.0% (40-74) Lymphocytes (%) (Auto) 25.5% (14-46) Monocytes (%) (Auto) 15.4% (4-12) Eosinophils (%) (Auto) 4.5% (0-5) Basophils (%) (Auto) 0.1% (0-3) Test 09/21/16 07:25 Hemoglobin 8.7g/dL (13.8-17.2) Hematocrit 27.5% (41.0-50.0) Prothrombin Time 14.9sec (8.1-12.5) Prothromb Time International Ratio 1.38ratio Activated Partial Thromboplast Time 65.3sec (22.8-33.0) Discharge Medications Discharge Medications Allopurinol (Allopurinol) 100 Mg Tablet 100 MG PO DAILY Prescribed by: RAN RUSHING DO Amlodipine (Amlodipine) 5 Mg Tablet 10 MG PO DAILY (Reported) Ascorbate Calcium (Vitamin C) 500 Mg Tablet 500 MG PO BID (Reported) Atorvastatin (Lipitor) 10 Mg Tab 10 MG PO HS (Reported) Budesonide/Formoterol 160-4.5 mcg Inh (Symbicort 160-4.5 mcg Inh) 120 Puff Inhaler 1 PUFF INHALATION BID (Reported) Clopidogrel (Clopidogrel) 75 Mg Tablet 75 MG PO DAILY (Reported) Ferrous Gluconate (Ferrous Gluconate) 324 Mg Tablet 324 MG PO DAILYWM Prescribed by: RAN RUSHING DO Hydralazine (Hydralazine) 50 Mg Tablet 100 MG PO TIDWM (Reported) Hydrochlorothiazide (Hydrochlorothiazide) 12.5 Mg Tablet 12.5 MG PO DAILY Prescribed by: RAN RUSHING DO Losartan Potassium (Losartan Potassium) 100 Mg Tablet 200 MG PO DAILY (Reported ) Metoprolol Succinate ER (Metoprolol Succinate ER) 25 Mg Tab.er.24h 25 MG PO DAILY (Reported) Pantoprazole DR (Pantoprazole DR) 40 Mg Tablet.dr 40 MG PO QAM (Reported) Warfarin Sodium (Warfarin Sodium) 5 Mg Tablet 7.5 MG PO Mo, , Fri, Sa, [place] ( Reported) Warfarin Sodium (Warfarin Sodium) 5 Mg Tablet 5 MG PO (Reported) As needed Acetaminophen (Acetaminophen) 500 Mg Tablet 1,000 MG PO Q6H PRN PRN For Pain ( Reported) Nitroglycerin SL (Nitroglycerin SL) 0.4 Mg Tab.subl 0.4 MG SL PRN chest pain ( Reported) Followup Plan Disposition: Left AMA Time spent 35 minutes with almost 30 minutes of it face to face with patient explaining reasoning behind wanting him to stay in hospital and explaining risks of leaving the hospital AMA copies to: Josué Kennedy MD; Edison Mott MD, Masoud Sep 21, 2016 17:32
== END 2016-09-21 11:37 | disposition left against medical advice (07) | DRG 394 ==
LOC: SED 08:25 → MPC 12:15
PROVIDERS: ADMIT Internal Medicine; ATTEND Internal Medicine
PROC: 0DJ68ZZ Inspection of Stomach, Via Natural or Artificial Opening Endoscopic (ICD-10-PCS; principal; 2016-09-18 17:15)
DX: K63.3 Ulcer of intestine (principal); K92.2 Gastrointestinal hemorrhage, unspecified; D68.51 Activated protein C resistance; D62 Acute posthemorrhagic anemia; Z79.01 Long term (current) use of anticoagulants; Z95.5 Presence of coronary angioplasty implant and graft; Z87.891 Personal history of nicotine dependence; Z95.2 Presence of prosthetic heart valve; Z79.02 Long term (current) use of antithrombotics/antiplatelets; E78.5 Hyperlipidemia, unspecified; I25.10 Atherosclerotic heart disease of native coronary artery without angina pectoris; J44.9 Chronic obstructive pulmonary disease, unspecified; E11.9 Type 2 diabetes mellitus without complications; I10 Essential (primary) hypertension; Z91.19 Patient's noncompliance with other medical treatment and regimen; Z86.711 Personal history of pulmonary embolism

== ENCOUNTER 2016-09-29 10:17 | Emergency (ER) | payer MEDICARE, OTHER ==
[~2016-09-29] VITALS: Ht 177.8 cm; Wt 113.6 kg
[~2016-09-29 10:17] MED LIST changes: +AMLO5TAB2 PO; +ASCO-294 PO; -Ascorbic Acid PO; +CLOP75TA28 PO; -DOCU-41 PO; +HYDR-3940 PO; -HYDR100T27 PO; +SYMINH INHALATION; -WARF7.5T4 PO
[2016-09-29 10:29] VITALS: BP 189/78; PULSE 51; RESP 18; O2SAT 99
--- NOTE | 2016-09-29 11:15 | ED.REPORT ---
HPI-Back Pain 40 and Over Date of Service Sep 29, 2016 ED Provider: History of Present Illness: 81-year-old male here for neck pain. Started on which is 4 days ago. He woke up with pain in his bilateral neck. Radiates to both shoulders. He will occasionally wake up with unilateral shoulder pain but never both shoulders, he feels is related to how he sleeps. He was able to some work on Friday and thinks made it even worse. He has taken 2 Tylenol twice a day and this has not helped at all. He is not able to take ibuprofen Nursing Notes Stated Complaint: SHOULDER AND NECK PAIN Chief Complaint: Back Pain or Injury Nursing Notes Reviewed: Yes Allergies: Coded Allergies: No Known Allergies (Unverified , 09/17/16) Scheduled Allopurinol (Allopurinol) 100 Mg Tablet 100 MG PO DAILY Amlodipine (Amlodipine) 5 Mg Tablet 10 MG PO DAILY Ascorbate Calcium (Vitamin C) 500 Mg Tablet 500 MG PO BID Atorvastatin (Lipitor) 10 Mg Tab 10 MG PO HS Budesonide/Formoterol 160-4.5 mcg Inh (Symbicort 160-4.5 mcg Inh) 120 Puff Inhaler 1 PUFF INHALATION BID Clopidogrel (Clopidogrel) 75 Mg Tablet 75 MG PO DAILY Ferrous Gluconate (Ferrous Gluconate) 324 Mg Tablet 324 MG PO DAILYWM Hydralazine (Hydralazine) 50 Mg Tablet 100 MG PO TIDWM Hydrochlorothiazide (Hydrochlorothiazide) 12.5 Mg Tablet 12.5 MG PO DAILY Losartan Potassium (Losartan Potassium) 100 Mg Tablet 200 MG PO DAILY Metoprolol Succinate ER (Metoprolol Succinate ER) 25 Mg Tab.er.24h 25 MG PO DAILY Pantoprazole DR (Pantoprazole DR) 40 Mg Tablet.dr 40 MG PO QAM Warfarin Sodium (Warfarin Sodium) 5 Mg Tablet 7.5 MG PO , , Fri, Sa, [place] Warfarin Sodium (Warfarin Sodium) 5 Mg Tablet 5 MG PO Scheduled PRN Acetaminophen (Acetaminophen) 500 Mg Tablet 1,000 MG PO Q6H PRN PRN For Pain Cyclobenzaprine (Cyclobenzaprine) 5 Mg Tablet 5 MG PO TID PRN PRN Spasm Nitroglycerin SL (Nitroglycerin SL) 0.4 Mg Tab.subl 0.4 MG SL PRN chest pain General Time Seen by MD: 10:59 Chief Complaint Neck pain Hx Obtained From: Patient Arrived By: Walk-in Sudden in Onset?: Yes Onset Occurred: 4 days ago Caused by: Spontaneous/no mechanism Location: : Generalized (neck l and r) Radiation: : Shoulder left: Shoulder right Severity: Current: Moderate Severity: Maximum: Severe Similar Sx Previous: No Past Medical History Past Medical History Notes: Cycle Director Dr. Mcallister D/Sera Friday01/05/16 from [facility] following TAVR 01/02 ( cardiology attending and surgeon Dr. Orellana, Dr. 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 Chan Status post valve replacement (TAVR) at [place] (bioprosthetic) complicated by pseudoaneurysm repair 01/03/2016 Smoking History Former Smoker Ambulatory Status Independent Review of Systems Review of Systems Note: bilat neck pain Basic Review of Systems Psychiatric: Normal thought content Musculoskeletal: Reports: Neck pain Complete sys rev & neg: except as marked. Physical Exam Initial Vital Signs Vital Signs (First) Date Time Temp Pulse Resp B/P Pulse Ox O2 Delivery O2 Flow Rate FiO2 09/29/16 10:29 36.9 51 18 189/78 99 Room Air Initial VS: Reviewed, Vital signs normal Head / Eyes: Atraumatic, Normocephalic, PERRL Extremities: Vascular intact, Neuro intact, No swelling, No tenderness Skin: Warm, Dry, No cyanosis Psychiatric: Mood/affect normal, Behavior normal, Normal thought content Respiratory / Chest: Breath sounds NL, Breath sounds = bilat, No respiratory distress, No rales, No rhonchi, No wheezing Cardiovascular: Heart rate NL, Regular rhythm, Heart sounds NL, No murmurs, Peripheral circulation NL Abdomen: Soft, Non-tender, No guarding, No rebound, No distention, No palpable mass, No pulsatile mass Neck: Atraumatic, Supple, No adenopathy, No swelling, No midline vertebral tend , No masses, No crepitus, No JVD, Thyroid NL, No tracheal deviation tension noted to bilateral scalenes. very limited motion of head/neck [id number] and up and down. Limited range of motion of the shoulders as well, cannot lift above shoulder height. Radial pulses present bilaterally no obvious swelling of the extremities. Shoulders are nontender to palpate. Trapezius is nontender as well. Remainder of back nontender Discharge & Departure Shift Change Sign-Out Response to Therapy: Unchanged Impression: Primary Impression: Neck muscle strain Encounter type: initial encounter Qualified Code: S16.1XXA - Strain of muscle, fascia and tendon at neck level, initial encounter Disposition: Home Discharge Condition All VS Reviewed: Yes Condition: Stable Patient Instructions: Cervical Neck Strain Exercises (GEN), Muscle Strain (ED) Additional Instructions: Continue with hot and cold packs alternating frequently. Take 1 g of Tylenol every 8 hours for pain. you may use a muscle relaxer at nighttime, if he needed to use it every 8 hours for candidal just make you drowsy. No driving when taking this medicine about cautiously. See her PCP early this week for a physical therapy referral if desired. Try to do some range of motion every day with her neck, even if it is just turning side to side. Referrals: Edison Mott MD (PCP) EDSupervising Provider for APC: Brody Cunningham MD, Linnea K ARNP Sep 29, 2016 11:15
[2016-09-29] MEDS ORDERED: CYCL5TAB PO (11:54)
[2016-09-29 12:14] VITALS: BP 141/67; PULSE 62; RESP 16; O2SAT 98
== END 2016-09-29 12:26 | disposition home or self-care (01) ==
LOC: SED 10:17
DX: S16.1XXA Strain of muscle, fascia and tendon at neck level, initial encounter (principal); X58.XXXA Exposure to other specified factors, initial encounter; Y93.89 Activity, other specified; Y99.8 Other external cause status; Y92.9 Unspecified place or not applicable; I10 Essential (primary) hypertension; E78.5 Hyperlipidemia, unspecified; E11.9 Type 2 diabetes mellitus without complications; I25.10 Atherosclerotic heart disease of native coronary artery without angina pectoris; J44.9 Chronic obstructive pulmonary disease, unspecified; Z86.79 Personal history of other diseases of the circulatory system; Z87.891 Personal history of nicotine dependence; Z86.711 Personal history of pulmonary embolism; Z90.89 Acquired absence of other organs; Z79.01 Long term (current) use of anticoagulants

== ENCOUNTER 2016-10-07 11:28 | Emergency (ER) | payer MEDICARE, OTHER ==
[2016-10-07] VITALS (7 sets, daily range): BP systolic 77–167; BP diastolic 31–76; PULSE 55–78; RESP 20–24; O2SAT 99–100
[~2016-10-07] VITALS: Ht 177.8 cm; Wt 113.6 kg
[~2016-10-07 11:28] MED LIST changes: +CYCL5TAB PO
--- NOTE | 2016-10-07 12:26 | ED.REPORT ---
HPI-Dyspnea / Wheezing Date of Service Oct 07, 2016 ED Provider: Adiel Jiménez MD 81-year-old male with past medical history of multiple PE, CAD, GI bleed presents today with shortness of breath. The patient has blood drawn this morning for routine blood analysis conjunction with ongoing anemia due to continued GI bleeding. He states that he has had ongoing melena for the past couple months. He was evaluated by GI with upper and lower endoscopies and nothing was discovered, however, a camera study was undergone which showed bleeding ulcers in the small bowel. The patient was referred to because he is currently on warfarin, and due to his history of multiple PE his physician has been reluctant to remove him from warfarin. Patient describes progressive shortness of breath and weakness over the last 1-3 months, however, he notes that this is progressed over the past 3 days. Over the last 1-3 months he has been in and out of the hospital with multiple transfusions. After a routine blood draw around 8:00 today the patient states that he went to the grocery store and was able to get home and put away his groceries, but after that he was unable to take more than 6 steps without getting short of breath. He states that laying in bed he does not experience respiratory symptoms, however if he attempts to exert himself in any fashion shortness of breath resumes. Nursing Notes Stated Complaint: FEELINF WEAK Chief Complaint: Respiratory Distress Nursing Notes Reviewed: Yes Allergies: Coded Allergies: No Known Allergies (Unverified , 10/07/16) Scheduled Allopurinol (Allopurinol) 100 Mg Tablet 100 MG PO DAILY Amlodipine (Amlodipine) 5 Mg Tablet 10 MG PO DAILY Ascorbate Calcium (Vitamin C) 500 Mg Tablet 500 MG PO BID Atorvastatin (Lipitor) 10 Mg Tab 10 MG PO HS Budesonide/Formoterol 160-4.5 mcg Inh (Symbicort 160-4.5 mcg Inh) 120 Puff Inhaler 1 PUFF INHALATION BID Clopidogrel (Clopidogrel) 75 Mg Tablet 75 MG PO DAILY Ferrous Gluconate (Ferrous Gluconate) 324 Mg Tablet 324 MG PO DAILYWM Hydralazine (Hydralazine) 50 Mg Tablet 100 MG PO TIDWM Hydrochlorothiazide (Hydrochlorothiazide) 12.5 Mg Tablet 12.5 MG PO DAILY Losartan Potassium (Losartan Potassium) 100 Mg Tablet 200 MG PO DAILY Metoprolol Succinate ER (Metoprolol Succinate ER) 25 Mg Tab.er.24h 25 MG PO DAILY Pantoprazole DR (Pantoprazole DR) 40 Mg Tablet.dr 40 MG PO QAM Warfarin Sodium (Warfarin Sodium) 5 Mg Tablet 7.5 MG PO , , Fri, , [place] Warfarin Sodium (Warfarin Sodium) 5 Mg Tablet 5 MG PO , Scheduled PRN Acetaminophen (Acetaminophen) 500 Mg Tablet 1,000 MG PO Q6H PRN PRN For Pain Cyclobenzaprine (Cyclobenzaprine) 5 Mg Tablet 5 MG PO TID PRN PRN Spasm Nitroglycerin SL (Nitroglycerin SL) 0.4 Mg Tab.subl 0.4 MG SL PRN chest pain General Time Seen by MD: 11:50 Chief Complaint Shortness of breath Hx Obtained From: Patient Sudden in Onset?: No Onset Occurred: 3 days ago Symptom Duration: Since onset Severity: Maximum: No pain Recent Healthcare: Previous diagnosis (Anemia w/ blood transfusion) Risk Factors CAD Risk Stratification Risk factors reviewed PE Risk Stratification Risk factors reviewed Past Medical History Past Medical History Notes: [employer] Dr. Mcallister D/Jax'richi Friday01/05/16 from [facility] following TAVR 01/02 ( cardiology attending and surgeon Dr. Orellana, Dr. 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 Physical Exam Physical Exam Notes: Trace edema and tenderness in the lower extremities bilaterally Patient appears pale Initial Vital Signs Vital Signs (First) Date Time Temp Pulse Resp B/P Pulse Ox O2 Delivery O2 Flow Rate FiO2 10/07/16 11:33 36.6 70 24 128/57 100 Room Air Initial VS: Reviewed Head / Eyes: Atraumatic, Normocephalic, PERRL ENT: Mucous membranes moist, Conjunctiva normal, No scleral icterus Abdomen / GI: Soft, Non-tender, No guarding, No rebound, No distention Extremities: Vascular intact Skin: Warm, Dry, No cyanosis Neurologic: Alert, Oriented, Nonfocal Psychiatric: Mood/affect normal, Behavior normal, Normal thought content General/Constitutional: Awake, Alert, No acute distress Respiratory / Chest: Breath sounds NL, No rales, No rhonchi, No wheezing, No stridor, No chest tenderness, No chest wall deformity Wheezing / Retractions: Negative: Wheezing expiratory, Wheezing inspiratory Right Leg / Calf: Positive: Swelling present... Interpretation & Diagnostics Lab Results Interpretation Result Diagram: 10/07/16 1145 10/07/16 1145 Test 10/07/16 11:45 White Blood Count 7.2th/mm3 (3.8-10.1) Red Blood Count 1.82mil/mm3 (4.40-5.80) Hemoglobin 5.2g/dL (13.8-17.2) Hematocrit 16.9% (41.0-50.0) Mean Corpuscular Volume 92.9fL (81-100) Mean Corpuscular Hemoglobin 28.6pg (27.0-35.0) Mean Corpuscular Hemoglobin Concent 30.8% (32.0-37.0) Red Cell Distribution Width 15.7% (12.3-15.4) Platelet Count 299bil/L (150-400) Neutrophils (%) (Auto) 67.0% (40-74) Lymphocytes (%) (Auto) 19.9% (14-46) Monocytes (%) (Auto) 8.8% (4-12) Eosinophils (%) (Auto) 1.7% (0-5) Basophils (%) (Auto) 0.4% (0-3) Prothrombin Time 37.6sec (8.1-12.5) Prothromb Time International Ratio 3.43ratio Sodium Level 138mEq/L (134-144) Potassium Level 4.2mEq/L (3.5-5.2) Chloride Level 103mEq/L (97-108) Carbon Dioxide Level 19mmol/L (18-29) Blood Urea Nitrogen 39mg/dL (8-27) Creatinine 1.22mg/dL (0.76-1.27) Estimat Glomerular Filtration Rate 61mL/min (>59) Glucose Level 197mg/dL (60-99) Calcium Level 8.8mg/dL (8.5-10.1) Total Bilirubin 0.2mg/dL (0.0-1.2) Aspartate Amino Transf (AST/SGOT) 16U/L (0-50) Alanine Aminotransferase (ALT/SGPT) 13U/L (0-44) Alkaline Phosphatase 47U/L (25-160) Total Protein 6.0g/dL (6.4-8.4) Albumin 3.3g/dL (3.4-5.0) Re-Eval/Medical Decision Med Decision/Clinical Course We were unable to find the results for the labs that were drawn this morning for this reason were redrawn here in the ED. labs showed hemoglobin of 5.2 and 2 units of platelets were ordered at that time. Patient will need admission to the hospital for observation and trending of his H&H. After discussing his condition with the hospitalist, it was decided that he would benefit more from inpatient admission to [facility], over being admitted here, as we have already located the source for his bleeding and they have the means to be able to stop the bleeding whereas here we could only give him additional units of blood. I discussed this plan with patient and family and they are in agreement. We discussed the patient and his history with [facility] and they have accepted the admission. He will be transferred from here with PRBCs running. Counseled Regarding: Diagnosis, Lab results, Need for admission Discharge & Departure Impression: Primary Impression: Symptomatic anemia Additional Impression: GI bleed GI bleed type/associated pathology: melena Qualified Code: K92.1 - Melena Disposition: Transfer, Acute Care Facility Transfer Requested at: 14:00 Call returned time Receiving Hospital: [facility] Transfer Accepted: Yes Transfer Accepted at: 15:00 Transfer Reason: Higher level of care Spoke with: Attending physician (Sy Reich) Patient Status: Stable Patient Informed: Yes Discharge Condition All VS Reviewed: Yes Condition: Stable Referrals: Edison Mott MD (PCP) Attending Statement The patient was seen and examined together with Dr. Patel on 10/07/16 and I agree with the history, exam and plan as outlined in the note above. Eric Patel DO Oct 07, 2016 12:26 Adiel Jiménez MD Oct 07, 2016 16:11
[2016-10-07 12:43] LABS: INR 3.43 ratio
[2016-10-07 12:45] LABS: BASOPHILS % (AUTO) 0.4 % (0-3); EOSINOPHILS % (AUTO) 1.7 % (0-5); MONOCYTES % (AUTO) 8.8 % (4-12); Mean Corpuscular Hemoglobin 28.6 pg (27.0-35.0); Mean Corpuscular Volume 92.9 fL (81-100); Platelet Count 299 bil/L (150-400)
--- NOTE | 2016-10-07 12:56 | DRSVH ---
PROCEDURE: X-RAY CHEST ONE VIEW, PORTABLE ([id number]) INDICATIONS: lethargy TECHNIQUE: One view of the chest was acquired. COMPARISON: 08/05/2016 FINDINGS: Surgical changes and devices: None. Lungs and pleura: No pleural effusions or pneumothorax. Lungs are clear. Mediastinum: Mediastinal contours appear normal. Heart size is normal. Bones and chest wall: No suspicious bony lesions. Overlying soft tissues appear unremarkable. IMPRESSION: No acute cardiopulmonary abnormality Dictated by: Von Espinosa M.D. on 10/07/2016 at 12:51 Approved by: Von Espinosa M.D. on 10/07/2016 at 12:53
[2016-10-07] MEDS ORDERED: Pantoprazole 8 mg/Hr Infusion IV SCH ×2 (13:40)
[2016-10-07] MEDS ORDERED: Pantoprazole 4 mg/mL 10 mL Inj IVPUSH ONE (20:30)
== END 2016-10-07 15:50 | disposition short-term general hospital (02) ==
LOC: SED 11:28 → OSC 14:47 → UNDOADMIN 14:47 → SED 15:50
DX: D64.9 Anemia, unspecified (principal); K92.2 Gastrointestinal hemorrhage, unspecified; I11.9 Hypertensive heart disease without heart failure; E11.59 Type 2 diabetes mellitus with other circulatory complications; I25.10 Atherosclerotic heart disease of native coronary artery without angina pectoris; J44.9 Chronic obstructive pulmonary disease, unspecified; E78.5 Hyperlipidemia, unspecified; Z95.4 Presence of other heart-valve replacement; Z95.5 Presence of coronary angioplasty implant and graft; Z79.01 Long term (current) use of anticoagulants; Z87.891 Personal history of nicotine dependence
CPT/HCPCS: 36415; 36430; 71010; 80053; 85025; 85610; 86850; 86922; 93005; 99285; P9021